=== PATIENT | female | born 1970 | race Caucasian/White ===

== ENCOUNTER → 2022-12-12 | Outpatient (CLI) | payer MEDICAID, SELFPAY ==
[2022-12-12 18:11] LABS: Absolute Lymphocyte Count 1.51 X10^3/uL (0.83-4.51); Absolute Neutrophil Count 2.5 X10^3/uL (2.0-7.7); Basophil# 0.02 X10^3/uL; Basophil% 0.4 % (0-1); Eosinophil# 0.19 X10^3/uL; Eosinophils% 4.2 % (0-5); Hematocrit 35.1 % (37-47); Hemoglobin 10.5 g/dL (12.0-15.0); Lymphocyte # 1.51 X10^3/ul (0.83-4.51); Lymphocyte % 33.1 % (19-41); Mean Corp Hgb Conc 29.9 g/dL (32-36); Mean Corpuscular Hgb 26.6 pg (27.0-32.0); Mean Corpuscular Volume 88.9 fL (81-99); Mean Platelet Vol. 10.1 fl (6.2-12.0); Monocyte# 0.36 X10^3/uL; Monocyte% 7.9 % (0-10); NRBC Flagged by Analyzer 0 % (0-5); Neutrophil # 2.47 X10^3/uL (2.7-7.7); Neutrophil % 54.2 % (47-70); Platelet Count 394 K/mm3 (150-450); RBC Distribution Width CV 16.2 % (11.6-14.6); RBC Distribution Width SD 53.1 fl (35.1-43.9); Red Blood Count 3.95 M/mm3 (4.2-5.4); White Blood Count 4.6 K/mm3 (4.4-11.0)
[2022-12-12 18:48] LABS: AST(SGOT) 16 U/L (15-37); Alanine Aminotransfer ALT/SGPT 16 U/L (13-56); Albumin, Serum 3.5 g/dL (3.2-5.0); Alkaline Phosphatase 38 U/L (45-117); Anion Gap 7 (5-15); BUN 14 mg/dL (7-18); BUN/Creat Ratio 22.4 RATIO (10-20); Calcium,Total 8.6 mg/dL (8.5-10.1); Chloride 107 mmol/L (98-107); Cholesterol 199 mg/dL (200); Creatinine, Serum 0.62 mg/dL (0.55-1.02); EST Glomerular Filtration Rate 107 mL/min (>60); Est Glom Filt Rate - Afr Amer 129 mL/min (>60); Globulin 3.5 g/dL (2.2-4.2); Glucose 76 mg/dL (74-106); High Density Lipoprotein 72 mg/dL; Potassium 3.3 mmol/L (3.5-5.1); Sodium Level 139 mmol/L (136-145); Thyroid Stim Hormone (TSH) 2.12 uIU/mL (0.358-3.74); Triglycerides 55 mg/dL; Very Low Density Lipoprotein 11 mg/dL (5-40)
[2022-12-12 19:23] LABS: Hepatitis C Antibody Non-Reactive (Nonreactive); Vitamin D,25 Hydroxy 15.4 ng/mL
== END | disposition home or self-care (01) ==
LOC: POLAB3 16:27
PROVIDERS: PCP Family Medicine Geriatric Medicine; Visit Provider Family Medicine Geriatric Medicine
DX: E78.5 Hyperlipidemia, unspecified (principal); R53.83 Other fatigue; Z13.89 Encounter for screening for other disorder; E55.9 Vitamin D deficiency, unspecified
CPT/HCPCS: 36415; 80053; 80061; 82306; 84443; 85025; 86803

== ENCOUNTER → 2023-01-10 | Outpatient (CLI) | payer MEDICAID, SELFPAY ==
[2023-01-10 18:06] LABS: Absolute Lymphocyte Count 1.19 X10^3/uL (0.83-4.51); Absolute Neutrophil Count 3.3 X10^3/uL (2.0-7.7); Basophil# 0.01 X10^3/uL; Basophil% 0.2 % (0-1); Eosinophil# 0.11 X10^3/uL; Eosinophils% 2.2 % (0-5); Hematocrit 35.1 % (37-47); Hemoglobin 10.4 g/dL (12.0-15.0); Lymphocyte # 1.19 X10^3/ul (0.83-4.51); Lymphocyte % 23.8 % (19-41); Mean Corp Hgb Conc 29.6 g/dL (32-36); Mean Corpuscular Hgb 27.4 pg (27.0-32.0); Mean Corpuscular Volume 92.4 fL (81-99); Mean Platelet Vol. 10.3 fl (6.2-12.0); Monocyte# 0.38 X10^3/uL; Monocyte% 7.6 % (0-10); NRBC Flagged by Analyzer 0 % (0-5); Neutrophil % 65.8 % (47-70); Platelet Count 370 K/mm3 (150-450); RBC Distribution Width CV 19.1 % (11.6-14.6); RBC Distribution Width SD 64.1 fl (35.1-43.9)
== END | disposition home or self-care (01) ==
LOC: POLAB3 13:55
PROVIDERS: PCP Family Medicine Geriatric Medicine; Visit Provider Family Medicine Geriatric Medicine
DX: D64.9 Anemia, unspecified (principal)
CPT/HCPCS: 36415; 85025

== ENCOUNTER 2023-02-06 07:54 | Day surgery (SDC) | payer MEDICAID, SELFPAY ==
[2023-02-06] VITALS (7 sets, daily range): BP systolic 108–117; BP diastolic 62–71; PULSE 60–69; RESP 16; TEMP 36.6–36.7; O2SAT 99–100; BMI 20.2
[2023-02-06] MEDS: Lactated Ringers 1,000 ML 15 ML IV (08:38)
[2023-02-06 08:39] LABS: Internal QC Validated? YES +Cl - CLEAR BKGD; Pregnancy, Urine Negative Negative
--- NOTE | 2023-02-06 08:46 | PCM.HP.BLA ---
History and Physical Date of Admission: 02/06/23 Intake Vital Signs ? 12/26/2313:40 Height 4 ft 11 in Weight: 100 lb BMI 20.2 BP 117/78 Blood Pressure Location Rt brachial Position Sitting Respiration 16 Intake Visit Reasons:?Anemia Chief Complaint: anemia Enrollment Eligibility Representative Required: No Is patient in pain?: Yes (abdomen) Allergies No Known Allergies Allergy (Verified 12/26/22 14:40) Medications alprazolam 1 mg tablet (Xanax) 1 mg PO QHS 02/27/17 [History Confirmed 12/26/22] famotidine 40 mg tablet 40 mg PO DAILY 12/26/22 [History Confirmed 12/26/22] polysaccharide iron complex 150 mg iron capsule (Ferrex) 150 mg PO DAILY 12/26/22 [History Confirmed 12/26/22] PFSH Medical History?(Updated 12/26/22 @ 14:[address] Olivier Hoover MD) Abdominal pain Acid reflux Anxiety Constipation Iron deficiency anemia Surgical History?(Updated 12/26/22 @ 14:39 by Shital Anderson) History of lithotripsy S/P hemorrhoidectomy S/P laparoscopic cholecystectomy Family History?(Updated 12/26/22 @ 14:39 by Shital Anderson) Mother Diabetes Social History?(Updated 12/26/22 @ 14:39 by Shital Anderson) Smoking Status:? Never smoker alcohol intake:? never HPI HPI HPI: Patient is a 52-year-old female here for lower abdominal pain and blood in her stool and anemia.? She reports that a few weeks ago she started having blood in her stool but it is very minimal amount.? She had a colonoscopy about 4 years ago which was normal.? She does not complain of any upper abdominal pain. ROS General General: Yes weight change; No appetite, fatigue, colon cancer, breast cancer or weakness HEENT HEENT: No difficulty swallowing, eye injury, eye surgery, swollen glands or hoarseness Endo Endocrine: No thyroid disease, diabetes mellitus, thyroid cancer, Hair loss, heat intolerance or cold intolerance Skin Skin: No rash or changing moles Breast Breast: No left breast lump, right breast lump, nipple discharge, breast pain, abnormal mammogram, abnormal US or breast enlargement Musc Musculoskeletal: No back problems, arthritis, rheumatoid arthritis, gout or joint pain Cardio Cardiovascular: No murmur, pacemaker, heart disease, atrial fibrillation, high blood pressure, heart attack, heart stent, palpitations, shortness of breat with exertion or chest pain Psych Psychiatric: Yes anxiety; No depression or hearing voices Resp Respiratory: No shortness of breath, No sleep apnea, No cough, No COPD, No asthma, No emphysema and No wheezing Gastro Gastrointestinal: Yes abdominal pain, No nausea or vomiting, No diarrhea, Yes constipation, No blood in stool, Yes acid reflux, No hemorrhoids, No ulcers, No gallbladder problem and Yes black,tarry stools Tyrell Hematologic: No blood thinners, No blood disorders, No bleeding, No anemia and No blood clots Neuro Neurologic: No system reviewed and no additional complaints, except as documented, No as per HPI, No abnormal gait, No abnormal hearing, No abnormal movements, No abnormal speech, No behavioral changes, No burning sensations, No confusion, No convulsions, No disequilibrium, No dizziness, No localized weakness, No frequent falls, No headache(s), No lack of coordination, No loss of vision, No memory loss, No numbness, No other visual disturbances, No radicular pain, No restless legs, No sensory deficit, No syncope, No tingling, No tremor(s), No weakness and No other Exam Const General: cooperative Orientation: alert and oriented x3 HENVT Head: normal to inspection Neck Neck: normal visual inspection and full ROM Chest Chest palpation & inspection: normal inspection of the chest Resp Effort & Inspection: normal respiratory effort Auscultation: clear to auscultation bilaterally Cardio Rate: regular rate Rhythm: regular rhythm GI Inspection: non-distended Palpation: soft and nontender Skin General: no rashes or lesions noted Neuro General: patient alert and patient oriented x3 Extrem General: full ROM Psych Appearance: grossly normal Mental Status: mental status grossly normal Assessment and Plan Assessment and Plan (1) Anemia: ?Qualifiers: ?Anemia type:?iron deficiency??Iron deficiency anemia type:?unspecified iron deficiency? Qualified Code(s):?D50.9 - Iron deficiency anemia, unspecified (2) Abdominal pain: ?Status:?Acute ?Qualifiers: ?Abdominal location:?lower abdomen, unspecified? Qualified Code(s):?R10.30 - Lower abdominal pain, unspecified (3) Blood in stool: ?Status:?Acute ? ? ? Orders: Orders Colonoscopy Today ? ? EGD Today ? ? Plan The patient is having lower abdominal pain and some blood in her stool and she also has iron deficiency anemia.? I recommended upper and lower endoscopy. I explained endoscopy in detail to the patient.? I explained the risks including but not limited to stroke or heart attack with anesthesia, perforation of the GI tract, bleeding, infection.? I explained that any of these could necessitate further emergency surgery.? The patient understands and all questions were answered sufficiently.? The patient wishes to proceed with procedure. Olivier Hoover MD Pager: [facility] [address] [place] [address], [address] [place] [address] Office: I have examined the patient and the H&P has been reviewed. There are no clinical changes since date of exam.
--- NOTE | 2023-02-06 09:00 | COLBX_PTH ---
PATIENT: YULISSA ALAN LOC: EN U#:[id number] AGE/SX: 52/F ROOM: RE02/06/[address]: Dr. Olivier Hoover MD : 1970 BED: DIS: 02/06/2023 SPEC #: [id number] RECD: 02/06/23 14:39 STATUS: JANAY RERacquel #: [id number] RACHAEL: 02/06/23 09:[address]: Olivier Hoover DEPT: SURGICAL PATHOLOGY RECD BY: Jayson Chand ENTERED: 02/07/23 10:11 SP TYPE: COLON BX OTHR DR: Dr. Garcia Barfield MD Tissues: Rectum, NOS Procedures: Surgery Specimen Level IV HEADER OPERATION: Colonoscopy, biopsy, EGD ([facility] [place]) PRE-OP DIAGNOSIS: Iron deficiency anemia, blood in stool, abdominal pain TISSUE SUBMITTED: Rectum biopsy MICROSCOPIC DIAGNOSIS Rectum, biopsy: Melanosis coli. AM:chyna 02/08/2023 MICROSCOPIC DESCRIPTION Slides are reviewed. GROSS DESCRIPTION Received in fixative is one container labeled with the patient's name and designated rectum biopsy. The specimen consists of two irregular fragments of light anderson soft tissue that in aggregate measure 0.6 x 0.3 x 0.1 cm. The specimen is totally submitted in one cassette. / SJ:chyna 02/07/2023 TC:5 CPT: 57734
[2023-02-06 09:21] LABS: Potassium 2.5 mmol/L (3.5-5.1)
--- NOTE | 2023-02-06 09:40 | OP.EGD_ITS ---
Patient Name: Valencia Padilla Procedure Date: 02/06/2023 9:01 AM Date of : 1970 Age: 52 Procedure: Upper GI endoscopy Indications: Iron deficiency anemia Providers: Olivier Hoover MD Medicines: Monitored Anesthesia Care Patient Profile: This is a 52 year old female. Refer to note in patient chart for documentation of history and physical. Complications: No immediate complications. Procedure: Pre-Anesthesia Assessment: - Prior to the procedure, a History and Physical was performed, and patient medications and allergies were reviewed. The patient's tolerance of previous anesthesia was also reviewed. The risks and benefits of the procedure and the sedation options and risks were discussed with the patient. All questions were answered, and informed consent was obtained. Prior Anticoagulants: The patient has taken no previous anticoagulant or antiplatelet agents. After reviewing the risks and benefits, the patient was deemed in satisfactory condition to undergo the procedure. After obtaining informed consent, the endoscope was passed under direct vision. Throughout the procedure, the patient's blood pressure, pulse, and oxygen saturations were monitored continuously. The Endoscope was introduced through the mouth, and advanced to the third part of duodenum. The upper GI endoscopy was accomplished without difficulty. The patient tolerated the procedure well. Scope In: 9:12:52 AM Scope Out: 9:14:26 AM Total Procedure Duration Time 0 hours 1 minute 34 seconds Findings: The esophagus was normal. The stomach was normal. The examined duodenum was normal. Impression: - Normal esophagus. - Normal stomach. - Normal examined duodenum. - No specimens collected. Recommendation: - Discharge patient to home. - Resume previous diet. - Continue present medications. Procedure Code(s): --- Professional --- 41957, Esophagogastroduodenoscopy, flexible, transoral; diagnostic, including collection of specimen(s) by brushing or washing, when performed (separate procedure) Diagnosis Code(s): --- Professional --- D50.9, Iron deficiency anemia, unspecified CPT copyright 2017 [employer]. All rights reserved. The codes documented in this report are preliminary and upon auditing coder review may be revised to meet current compliance requirements. Olivier Hoover MD 02/06/2023 9:40:26 AM This report has been signed electronically. Number of Addenda: 0 Note Initiated On: 02/06/2023 9:01 AM
--- NOTE | 2023-02-06 09:41 | OP.CCLET_ITS ---
02/06/2023 Garcia Barfield MD [address] [place] [address] Re : Upper GI endoscopy procedure for Valencia Padilla Dear Dr. Barfield This procedure was performed on Monday, February 06, 2023. My impressions and recommendations are as follows: Impressions : - Normal esophagus. - Normal stomach. - Normal examined duodenum. - No specimens collected. Recommendations : - Discharge patient to home. - Resume previous diet. - Continue present medications. My findings are described in the full procedure note, which is enclosed. If I can be of further assistance, please feel free to contact me at Doctor phone number(s): , Work: . Sincerely, Olivier Hoover MD 02/06/2023 9:40:26 AM This report has been signed electronically.
--- NOTE | 2023-02-06 09:44 | OP.COLON_ITS ---
Patient Name: Valencia Padilla Procedure Date: 02/06/2023 9:15 AM Date of : 1970 Age: 52 Procedure: Colonoscopy Indications: Iron deficiency anemia Providers: Olivier Hoover MD Medicines: Monitored Anesthesia Care Patient Profile: This is a 52 year old female. Refer to note in patient chart for documentation of history and physical. Last Colonoscopy: none. The patient's first colonoscopy is today. Complications: No immediate complications. Procedure: Pre-Anesthesia Assessment: - Prior to the procedure, a History and Physical was performed, and patient medications and allergies were reviewed. The patient's tolerance of previous anesthesia was also reviewed. The risks and benefits of the procedure and the sedation options and risks were discussed with the patient. All questions were answered, and informed consent was obtained. Prior Anticoagulants: The patient has taken no previous anticoagulant or antiplatelet agents. After reviewing the risks and benefits, the patient was deemed in satisfactory condition to undergo the procedure. After I obtained informed consent, the scope was passed under direct vision. Throughout the procedure, the patient's blood pressure, pulse, and oxygen saturations were monitored continuously. The colonoscope was introduced through the anus and advanced to the cecum, identified by appendiceal orifice and ileocecal valve. The colonoscopy was performed without difficulty. The patient tolerated the procedure well. The quality of the bowel preparation was not adequate to identify polyps 6 mm and larger in size. Scope In: 9:17:23 AM Scope Withdrawal Time 0 hours 5 minutes 45 seconds Scope Out: 9:31:34 AM Total Procedure Duration Time 0 hours 14 minutes 11 seconds Findings: An area of moderately congested mucosa was found in the rectum. Biopsies were taken with a cold forceps for histology. The exam was otherwise without abnormality on direct and retroflexion views. Impression: - Preparation of the colon was inadequate. - Congested mucosa in the rectum. Biopsied. - The examination was otherwise normal on direct and retroflexion views. Recommendation: - Discharge patient to home. - Resume previous diet. - Continue present medications. - Await pathology results. - Repeat colonoscopy in 10 years for screening purposes. Procedure Code(s): --- Professional --- 07403, Colonoscopy, flexible; with biopsy, single or multiple Diagnosis Code(s): --- Professional --- K62.89, Other specified diseases of anus and rectum D50.9, Iron deficiency anemia, unspecified CPT copyright 2017 [employer]. All rights reserved. The codes documented in this report are preliminary and upon machine assistant review may be revised to meet current compliance requirements. Olivier Hoover MD 02/06/2023 9:44:27 AM This report has been signed electronically. Number of Addenda: 0 Note Initiated On: 02/06/2023 9:15 AM
--- NOTE | 2023-02-06 09:45 | OP.CCLET_ITS ---
02/06/2023 Garcia Barfield MD [address] [place] [address] Re : Colonoscopy procedure for Valencia Padilla Dear Dr. Barfield This procedure was performed on Monday, February 06, 2023. My impressions and recommendations are as follows: Impressions : - Preparation of the colon was inadequate. - Congested mucosa in the rectum. Biopsied. - The examination was otherwise normal on direct and retroflexion views. Recommendations : - Discharge patient to home. - Resume previous diet. - Continue present medications. - Await pathology results. - Repeat colonoscopy in 10 years for screening purposes. My findings are described in the full procedure note, which is enclosed. If I can be of further assistance, please feel free to contact me at Doctor phone number(s): , Work: . Sincerely, Olivier Hoover MD 02/06/2023 9:44:27 AM This report has been signed electronically.
[2023-02-06 10:00] LABS: Magnesium 1.7 mg/dL (1.6-2.6); Potassium 2.3 mmol/L (3.5-5.1)
--- NOTE | 2023-02-06 10:00 | SUR.PHASEII ---
critical potassium of 2.3 reported to this nurse at 0959 from organic lab worker. reported to anesthesia.
[2023-02-06] MEDS: Potassium Chloride Oral Tablet 20 MEQ 60 MEQ PO (10:23)
--- NOTE | 2023-02-06 11:24 | SUR.PHASEII ---
This nurse called and left a voicemail with Dr. Barfield's RN regarding critical low potassium. Patient educated to call and make an appointment for follow up regarding K+. Patient agrees. Phone number provided. All questions answered at this time.
== END 2023-02-06 11:25 | disposition home or self-care (01) ==
LOC: EN 07:56 → AC 07:57
PROVIDERS: Anesthesiology; PCP Family Medicine Geriatric Medicine; Referring Provider Surgery; Visit Provider Surgery
PROC: 0DJD8ZZ Inspection of Lower Intestinal Tract, Via Natural or Artificial Opening Endoscopic (ICD-10-PCS; CPT 45378; principal; 2023-02-06 08:55)
DX: K63.89 Other specified diseases of intestine (principal); D50.9 Iron deficiency anemia, unspecified; K92.1 Melena; K21.9 Gastro-esophageal reflux disease without esophagitis; F41.9 Anxiety disorder, unspecified; Z90.49 Acquired absence of other specified parts of digestive tract; Z79.899 Other long term (current) drug therapy
CPT/HCPCS: 45380; 43235; 36415; 80048; 81025; 83735; 84132; 85025; 88305; J7120; J2405

== ENCOUNTER → 2023-02-06 | Outpatient (CLI) | payer MEDICAID, SELFPAY ==
[2023-02-06 17:44] LABS: Absolute Lymphocyte Count 1.16 X10^3/uL (0.83-4.51); Absolute Neutrophil Count 2.3 X10^3/uL (2.0-7.7); Basophil# 0.01 X10^3/uL; Basophil% 0.3 % (0-1); Eosinophil# 0.15 X10^3/uL; Eosinophils% 3.8 % (0-5); Hematocrit 34.4 % (37-47); Hemoglobin 10.9 g/dL (12.0-15.0); Lymphocyte # 1.16 X10^3/ul (0.83-4.51); Lymphocyte % 29.3 % (19-41); Mean Corp Hgb Conc 31.7 g/dL (32-36); Mean Corpuscular Hgb 29.1 pg (27.0-32.0); Mean Corpuscular Volume 91.7 fL (81-99); Mean Platelet Vol. 10.4 fl (6.2-12.0); Monocyte# 0.38 X10^3/uL; Monocyte% 9.6 % (0-10); NRBC Flagged by Analyzer 0 % (0-5); Neutrophil # 2.25 X10^3/uL (2.7-7.7); Neutrophil % 56.7 % (47-70); Platelet Count 302 K/mm3 (150-450); RBC Distribution Width CV 18.3 % (11.6-14.6); RBC Distribution Width SD 61.2 fl (35.1-43.9); Red Blood Count 3.75 M/mm3 (4.2-5.4)
[2023-02-06 17:55] LABS: Anion Gap 4 (5-15); BUN 8 mg/dL (7-18); BUN/Creat Ratio 15.2 RATIO (10-20); Calcium,Total 8.2 mg/dL (8.5-10.1); Chloride 109 mmol/L (98-107); Creatinine, Serum 0.53 mg/dL (0.55-1.02); EST Glomerular Filtration Rate 130 mL/min (>60); Est Glom Filt Rate - Afr Amer 157 mL/min (>60); Glucose 87 mg/dL (74-106); Magnesium 2.8 mg/dL (1.6-2.6); Potassium 2.7 mmol/L (3.5-5.1); Sodium Level 142 mmol/L (136-145)
== END | disposition home or self-care (01) ==
LOC: POLAB3 16:11
PROVIDERS: PCP Family Medicine Geriatric Medicine; Visit Provider Family Medicine Geriatric Medicine
DX: D64.9 Anemia, unspecified (principal); E83.42 Hypomagnesemia; E87.6 Hypokalemia; K90.9 Intestinal malabsorption, unspecified; R53.83 Other fatigue
CPT/HCPCS: 85025; 36415; 83735; 80048

== ENCOUNTER → 2023-02-21 | Outpatient (CLI) | payer MEDICAID, SELFPAY ==
[2023-02-21 17:13] LABS: Anion Gap 10 (5-15); BUN 14 mg/dL (7-18); BUN/Creat Ratio 22.8 RATIO (10-20); Calcium,Total 9.1 mg/dL (8.5-10.1); Chloride 108 mmol/L (98-107); Creatinine, Serum 0.61 mg/dL (0.55-1.02); EST Glomerular Filtration Rate 109 mL/min (>60); Est Glom Filt Rate - Afr Amer 132 mL/min (>60); Glucose 89 mg/dL (74-106); Magnesium 1.8 mg/dL (1.6-2.6); Potassium 3.6 mmol/L (3.5-5.1); Sodium Level 139 mmol/L (136-145)
== END | disposition home or self-care (01) ==
PROVIDERS: PCP Family Medicine Geriatric Medicine; Visit Provider Family Medicine Geriatric Medicine
DX: E83.42 Hypomagnesemia (principal); E87.6 Hypokalemia
CPT/HCPCS: 36415; 80048; 82607; 82728; 83540; 83550; 83735; 85025; 85045

== ENCOUNTER → 2023-06-06 | Outpatient (CLI) | payer MEDICAID, SELFPAY | END | disposition home or self-care (01) | LOC: LABSPEC 17:05 | PROVIDERS: PCP Family Medicine Geriatric Medicine; Visit Provider Family Medicine Geriatric Medicine | DX: N20.0 Calculus of kidney (principal); N39.0 Urinary tract infection, site not specified | CPT/HCPCS: 82360; 87086; 87088 ==

== ENCOUNTER → 2023-06-19 | Outpatient (CLI) | payer MEDICAID, SELFPAY ==
[2023-06-19 15:10] LABS: Absolute Lymphocyte Count 1.16 X10^3/uL (0.83-4.51); Basophil# 0.02 X10^3/uL; Basophil% 0.4 % (0-1); Eosinophils% 2.2 % (0-5); Hematocrit 36.7 % (37-47); Hemoglobin 11.8 g/dL (12.0-15.0); Lymphocyte # 1.16 X10^3/ul (0.83-4.51); Lymphocyte % 25.1 % (19-41); Mean Corp Hgb Conc 32.2 g/dL (32-36); Mean Corpuscular Hgb 31.1 pg (27.0-32.0); Mean Corpuscular Volume 96.8 fL (81-99); Mean Platelet Vol. 10.5 fl (6.2-12.0); Monocyte# 0.34 X10^3/uL; Monocyte% 7.4 % (0-10); NRBC Flagged by Analyzer 0 % (0-5); Neutrophil # 2.99 X10^3/uL (2.7-7.7); Neutrophil % 64.7 % (47-70); Platelet Count 303 K/mm3 (150-450); RBC Distribution Width CV 13.9 % (11.6-14.6); RBC Distribution Width SD 49.5 fl (35.1-43.9); Red Blood Count 3.79 M/mm3 (4.2-5.4); White Blood Count 4.6 K/mm3 (4.4-11.0)
[2023-06-19 15:45] LABS: ALB/GLOB Ratio 0.9 RATIO (0.9-2.4); AST(SGOT) 10 U/L (15-37); Alanine Aminotransfer ALT/SGPT 16 U/L (13-56); Albumin, Serum 3.3 g/dL (3.2-5.0); Alkaline Phosphatase 39 U/L (45-117); Anion Gap 4 (5-15); BUN 9 mg/dL (7-18); BUN/Creat Ratio 14.1 RATIO (10-20); Calcium,Total 8.3 mg/dL (8.5-10.1); Chloride 106 mmol/L (98-107); Cholesterol 189 mg/dL (200); Creatinine, Serum 0.64 mg/dL (0.55-1.02); EST Glomerular Filtration Rate 104 mL/min (>60); Est Glom Filt Rate - Afr Amer 126 mL/min (>60); Globulin 3.5 g/dL (2.2-4.2); Glucose 81 mg/dL (74-106); High Density Lipoprotein 73 mg/dL; Potassium 3.4 mmol/L (3.5-5.1); Protein, Total 6.8 g/dL (6.4-8.2); Sodium Level 138 mmol/L (136-145); Thyroid Stim Hormone (TSH) 2.04 uIU/mL (0.358-3.74); Triglycerides 42 mg/dL; Very Low Density Lipoprotein 8 mg/dL (5-40)
== END | disposition home or self-care (01) ==
LOC: POLAB3 13:33
PROVIDERS: PCP Family Medicine Geriatric Medicine; Visit Provider Family Medicine Geriatric Medicine
DX: R53.83 Other fatigue (principal)
CPT/HCPCS: 36415; 80053; 80061; 84443; 85025

== ENCOUNTER → 2023-06-29 | Outpatient (CLI) | payer MEDICAID, SELFPAY ==
[2023-06-29 17:08] LABS: Anion Gap 2 (5-15); BUN 11 mg/dL (7-18); BUN/Creat Ratio 17.9 RATIO (10-20); Calcium,Total 8.3 mg/dL (8.5-10.1); Chloride 105 mmol/L (98-107); Creatinine, Serum 0.61 mg/dL (0.55-1.02); EST Glomerular Filtration Rate 109 mL/min (>60); Est Glom Filt Rate - Afr Amer 132 mL/min (>60); Glucose 80 mg/dL (74-106); Potassium 3.9 mmol/L (3.5-5.1); Sodium Level 135 mmol/L (136-145)
== END | disposition home or self-care (01) ==
LOC: LAB 16:16
PROVIDERS: PCP Family Medicine Geriatric Medicine; Visit Provider Family Medicine Geriatric Medicine
DX: E87.6 Hypokalemia (principal)
CPT/HCPCS: 36415; 80048

== ENCOUNTER → 2023-07-24 | Outpatient (CLI) | payer MEDICAID, SELFPAY ==
--- NOTE | 2023-07-24 14:48 | CT_ITS ---
STUDY: CT ABDOMEN AND PELVIS WITHOUT CONTRAST REASON FOR EXAM: Female, 52 years old. LEFT RENAL STONE RADIATION DOSAGE (If Supplied By Facility): CTDIvol = ( 6.04 ) mGy, DLP = ( 303.71 ) mGycm TECHNIQUE: Transaxial images were obtained from the dome of the diaphragm to the symphysis pubis without oral contrast, and without intravenous contrast. Sagittal and coronal images were reconstructed. Individualized dose optimization techniques were used for this CT. COMPARISON: None. FINDINGS: The visualized lung bases are unremarkable. The visualized portions of the heart are within normal limits. There is a 1.8 cm x 1.5 cm cyst in the medial aspect of the right lobe of the liver. There are surgical clips in the gallbladder fossa consistent with a prior cholecystectomy. Normal spleen. Normal pancreas. Normal bilateral adrenal glands. Normal right kidney. Normal left kidney. There is a small hiatal hernia. Normal small intestine. Normal colon. The appendix is visualized and appears normal. There is scattered atherosclerotic calcification of the abdominal aorta, without a demonstrated aneurysm. Normal inferior vena cava. Normal retroperitoneum. Normal urinary bladder. Normal abdominal wall. Normal osseous structures. CT/Abdomen/Pelvis without Cont IMPRESSION: Cyst in the right lobe of the liver. Status post cholecystectomy. No evidence of obstructive uropathy is seen at this time. Electronically Signed: Paramjit Watt MD at 15:21 EDT ,
== END | disposition home or self-care (01) ==
LOC: CT 14:46
PROVIDERS: PCP Family Medicine Geriatric Medicine; Referring Provider Family Medicine Geriatric Medicine; Visit Provider Family Medicine Geriatric Medicine
DX: N20.0 Calculus of kidney (principal)
CPT/HCPCS: 74176

== ENCOUNTER → 2023-11-12 | Outpatient (CLI) | payer MEDICAID, SELFPAY ==
--- NOTE | 2023-11-12 16:03 | RAD_ITS ---
STUDY: X-RAY - ABDOMEN/PELVIS REASON FOR EXAM: Female, 52 years old. FECAL IMPACTION OF THE COLON TECHNIQUE: 3 views COMPARISON: None. FINDINGS: Normal visualized lung bases. There is an unremarkable bowel gas pattern. No significant colonic fecal retention. There is no demonstrated free abdominal air. Surgical clips in the right upper quadrant. Normal soft tissue structures. Normal visualized osseous structures. RAD/Abd Inc Decub and/or Erect IMPRESSION: Normal x-ray examination of the abdomen and pelvis. Electronically Signed: Lex Sung DO at 16:18 EST Reading Location ID and State: [facility] / [place] Tel [phone], Service support ,
[2023-11-12 17:52] LABS: Absolute Lymphocyte Count 0.98 X10^3/uL (0.83-4.51); Absolute Neutrophil Count 1.7 X10^3/uL (2.0-7.7); Basophil# 0.01 X10^3/uL; Basophil% 0.3 % (0-1); Eosinophil# 0.13 X10^3/uL; Hematocrit 39.2 % (37-47); Hemoglobin 12.5 g/dL (12.0-15.0); Lymphocyte # 0.98 X10^3/ul (0.83-4.51); Lymphocyte % 30.5 % (19-41); Mean Corp Hgb Conc 31.9 g/dL (32-36); Mean Corpuscular Hgb 29.8 pg (27.0-32.0); Mean Corpuscular Volume 93.6 fL (81-99); Mean Platelet Vol. 10.6 fl (6.2-12.0); Monocyte% 12.5 % (0-10); NRBC Flagged by Analyzer 0 % (0-5); Neutrophil # 1.68 X10^3/uL (2.7-7.7); Neutrophil % 52.4 % (47-70); Platelet Count 297 K/mm3 (150-450); RBC Distribution Width CV 14.1 % (11.6-14.6); RBC Distribution Width SD 48.1 fl (35.1-43.9); Red Blood Count 4.19 M/mm3 (4.2-5.4); White Blood Count 3.2 K/mm3 (4.4-11.0)
[2023-11-12 18:09] LABS: AST(SGOT) 23 U/L (15-37); Alanine Aminotransfer ALT/SGPT 26 U/L (13-56); Albumin, Serum 3.8 g/dL (3.2-5.0); Alkaline Phosphatase 55 U/L (45-117); Anion Gap 6 (5-15); BUN 12 mg/dL (7-18); BUN/Creat Ratio 18.1 RATIO (10-20); Calcium,Total 8.8 mg/dL (8.5-10.1); Chloride 109 mmol/L (98-107); Creatinine, Serum 0.66 mg/dL (0.55-1.02); EST Glomerular Filtration Rate 99 mL/min (>60); Est Glom Filt Rate - Afr Amer 120 mL/min (>60); Globulin 3.8 g/dL (2.2-4.2); Glucose 98 mg/dL (74-106); Potassium 2.8 mmol/L (3.5-5.1); Protein, Total 7.6 g/dL (6.4-8.2); Sodium Level 141 mmol/L (136-145)
== END | disposition home or self-care (01) ==
PROVIDERS: PCP Family Medicine Geriatric Medicine; Visit Provider Family Medicine Geriatric Medicine
DX: K56.41 Fecal impaction (principal); N39.0 Urinary tract infection, site not specified
CPT/HCPCS: 36415; 74019; 80053; 85025; 87086

== ENCOUNTER → 2023-11-21 | Outpatient (CLI) | payer MEDICAID, SELFPAY ==
[2023-11-21 14:57] LABS: Anion Gap 2 (5-15); BUN 9 mg/dL (7-18); BUN/Creat Ratio 13.6 RATIO (10-20); Calcium,Total 8.8 mg/dL (8.5-10.1); Chloride 106 mmol/L (98-107); Creatinine, Serum 0.66 mg/dL (0.55-1.02); EST Glomerular Filtration Rate 100 mL/min (>60); Est Glom Filt Rate - Afr Amer 121 mL/min (>60); Glucose 84 mg/dL (74-106); Potassium 3.9 mmol/L (3.5-5.1); Sodium Level 138 mmol/L (136-145)
--- OUTSIDE RECORDS SUMMARY | 2023-11-21 17:48 | XMS RPT_ITS | CCD ---
Author Name Unknown Address [address] [place] [address] Organization [facility] Care Team Providers Care Canal Tender Name Role Phone TAE MARTINS Unavailable Unavailable TAE MARTINS Unavailable Unavailable TAE MARTINS Unavailable Unavailable CALEB GUILLAUME DO Unavailable Unavailable PROVIDER, UNKNOWN Unavailable Unavailable Jair Blanco Unavailable Unavailable Bella, Jair M Unavailable Unavailable Bella Jair M Unavailable Unavailable Bella, Jair M Unavailable Unavailable Ashlie Guillaume Unavailable Unavailable [place] Blancoil Uriah Unavailable Unavailable Ashlie Guillaume Unavailable Unavailable ASHLIE CROWLEY DO Primary Care Physician Medications Current Medications Medication Drug Class(es) Dates Sig (Normalized) Sig (Original) docusate sodium 100 mg oral capsule (2 sources) Start: 02-07-2022 End: 02-02-2023 DOK 100 mg oral capsule Dose : 100 mg = 1 cap(s), Oral, BID, # 180 cap(s), 3 Refill(s), Pharmacy: [id number], Constipation, 149, cm, 02/07/22 13:56:00 EDT, Height, kg, 02/07/22 13:56:00 EDT, Dosing Weight Start Date: 02/07/22 Stop Date: 02/02/23 Status: Ordered Completed/Discontinued Medications Medication Drug Class(es) Dates Sig (Normalized) Sig (Original) ALPRAZolam 1 mg oral tablet (2 sources) Benzodiazepine Start: 05-16-2022 ALPRAZolam 1 mg oral tablet Dose : 1 mg = 1 tab(s), Oral, qHS, PRN as needed for anxiety, 0 Refill(s), 43 Start Date: 05/16/22 Status: Ordered simethicone 80 mg chewable tablet (2 sources) Start: 02-07-2022 End: 04-08-2022 simethicone 80 mg oral tablet, chewable Dose : 80 mg = 1 tab(s), Chewed, QID, # 120 tab(s), 1 Refill(s), Pharmacy: [id number], IBS (irritable bowel syndrome) Acid reflux, 149, cm, 02/07/22 13:56:00 EDT, Height, kg, 02/07/22 13:56:00 EDT, Dosing Weight Start Date: 02/07/22 Stop Date: 04/08/22 Status: Ordered Problems Problem Classification Problem Date Documented Da te Episodic/Chronic Abdominal pain (2 sources) Abdominal pain 01-03-2016 Episodic Anxiety disorders (2 sources) Anxiety 01-03-2016 Chronic Calculus of urinary tract (2 sources) History of calculus of kidney 01-03-2016 Episodic Deficiency and other anemia (2 sources) Anemia 01-03-2016 Episodic Diverticulosis and diverticulitis (2 sources) Diverticular disease 01-13-2016 Chronic Hemorrhoids (2 sources) Bleeding external hemorrhoids 10-24-2019 Episodic Mood disorders (2 sources) Depressive disorder 01-03-2016 Chronic Nutritional deficiencies (1 source) Iron deficiency Onset: 10-30-2017 Chronic Other ear and sense organ disorders (2 sources) Impacted cerumen 02-03-2021 Episodic Other gastrointestinal disorders (2 sources) Constipation 01-03-2016 Episodic Other screening for suspected conditions (not mental disorders or infectious disease) (2 sources) Viral screening status 05-16-2022 Episodic Residual codes; unclassified (2 sources) Requires a tetanus booster 02-07-2022 Episodic Residual codes; unclassified (2 sources) Requires varicella vaccination 02-07-2022 Episodic Unclassified (1 source) Unknown / UNK(Unknown) Onset: 10-30-2017 Unclassified (2 sources) Eye glasses, device (physical object) 01-03-2016 Unclassified (2 sources) H/O: high risk medication 07-25-2019 Unclassified (10 sources) Patient encounter status 02-03-2021 Unclassified (2 sources) Procedure refused 05-16-2022 Results Test Name Value Interpretation Reference Range Facil ity Encounters Encounter Date Encounter Type Care Provider Facility Start: 05-31-2022 End: 05-31-2022 Patient encounter procedure ASHLIE CROWLEY DO [facility] Start: 05-28-2018 Patient encounter Jair Espinoza lity:[facility] Start: 05-14-2018 Patient encounter Jair Espinoza lity:[facility] Start: 03-02-2018 Patient encounter Jair Espinoza lity:[facility] Start: 02-28-2018 End: 02-28-2018 Ambulatory TAE Urias [facility] Start: 01-15-2018 Patient encounter Jair Espinoza lity:[facility] Start: 10-30-2017 Patient encounter Jair vargas:[facility] Procedures Date Procedure Procedure Detail Performing Clinician Start: 01-06-2016 Cystoscopy ASHLIE MARIA DO Immunizations Immunization Date Immunization Notes Care Provider Fa [facility] 02-07-2022 tetanus toxoid, redu anibal diphtheria toxoid, and acellular pertussis vaccine, adsorbed; Translations: [Boostrix (Tdap)] ASHLIE CROWLEY DO [facility] 02-07-2022 zoster vaccine recombinant; Translations: [Shingrix] ASHLIE CROWLEY DO [facility] 09-09-2021 SARS-CoV-2 (COVID-19 ) mRNA-1273 vaccine ASHLIE CROWLEY DO [facility] 08-17-2021 influenza, injectabl e, quadrivalent, contains preservative; Translations: [Fluarix PF Quadrivalent ] ASHLIE CROWLEY DO [facility] 01-06-2021 SARS-CoV-2 (COVID-19 ) Ad26 vaccine, recombinant ASHLIE CROWLEY DO [facility] Payers Date Payer Category Payer Unknown [id number] Social History Date Type Detail Facility Start: 10-24-2019 Tobacco smoking status Never s moked tobacco (finding) [facility] Evaluation + Plan note Note Date & Type Note Facility Evaluation + Plan note Future Appointments Appointment Date:11/15/2022 02:00:00 PM Scheduled Provider:ASHLIE CROWLEY DO Location:[facility] Appointment Type:PC OV Follow Up [facility] Hospital course Narrative Note Date & Type Note Facility Hospital course Narrative No data available for this section [facility] Hospital Discharge instructions Note Date & Type Note Facility Hospital Discharge instructions No data available for this section [facility] Progress note Note Date & Type Note Facility Progress note No data available for this section [facility] Summary Purpose Family History No Family History Records FoundNo Family History Records FoundNo Family History Records Found Advance Directives No Advanced Directives Records FoundNo Advanced Directives Records FoundNo Advanced Directives Records Found Additional Source Comments INFORMATION SOURCE (unrecogn ized section and content) DATE CREATED AUTHOR AUTHOR'S ORGANIZ ATION 07/13/2018 [facility] mavis Hodgson DATE CREATED AUTHOR AUTHOR'S ORGANIZ ATION 06/06/2022 [facility] ([place]) Care Team (unrecognized sect ion and content) Care Team Personnel Name: ASHLIE CROWLEY DO Position: P4 Physician - Primary Care Member Role: Primary Care Physician Address: Address: [address] [place] [address] Care Team Related Persons Name: GARCIA BRYANT Care Team Personnel Name: ASHLIE CROWLEY DO Position: P4 Physician - Primary Care Member Role: Primary Care Physician Address: Address: [address] [place] [address] Care Team Related Persons Name: GARCIA BRYANT FOR RECORDS PERTAINING TO PATIENTS WHO ARE OR HAVE BEEN ENROLLED IN A CHEMICAL DEPENDENCY/SUBSTANCEABUSE PROGRAM, SOME INFORMATION MAY BE OMITTED. This clinical summary was aggregated from multiple sources. Caution should be exercised in using it in the provision of clinical care. This summary normalizes information from multiple sources, and as a consequence, information in this document may materially change the coding, format and clinical context of patient data. In addition, data may be omitted in some cases. CLINICAL DECISIONS SHOULD BE BASED ON THE PRIMARY CLINICAL RECORDS. [facility]. provides no warranty or guarantee of the accuracy or completeness of information in this document.
== END | disposition home or self-care (01) ==
LOC: LAB 13:52
PROVIDERS: PCP Family Medicine Geriatric Medicine; Visit Provider Family Medicine Geriatric Medicine
DX: E78.5 Hyperlipidemia, unspecified (principal)
CPT/HCPCS: 36415; 80048

== ENCOUNTER → 2023-12-06 | Outpatient (CLI) | payer MEDICAID, SELFPAY ==
[2023-12-06 17:18] LABS: Anion Gap 7 (5-15); BUN 10 mg/dL (7-18); BUN/Creat Ratio 14.3 RATIO (10-20); Chloride 104 mmol/L (98-107); EST Glomerular Filtration Rate 94 mL/min (>60); Est Glom Filt Rate - Afr Amer 114 mL/min (>60); Glucose 79 mg/dL (74-106); Potassium 3.3 mmol/L (3.5-5.1); Sodium Level 140 mmol/L (136-145)
== END | disposition home or self-care (01) ==
LOC: LAB 15:47
PROVIDERS: PCP Family Medicine Geriatric Medicine; Referring Provider Family Medicine Geriatric Medicine; Visit Provider Family Medicine Geriatric Medicine
DX: E87.6 Hypokalemia (principal)
CPT/HCPCS: 36415; 80048

== ENCOUNTER → 2023-12-14 | Outpatient (CLI) | payer MEDICAID, SELFPAY ==
[2023-12-14 16:55] LABS: Anion Gap 5 (5-15); BUN 9 mg/dL (7-18); BUN/Creat Ratio 12.3 RATIO (10-20); Calcium,Total 8.9 mg/dL (8.5-10.1); Chloride 107 mmol/L (98-107); Creatinine, Serum 0.73 mg/dL (0.55-1.02); EST Glomerular Filtration Rate 88 mL/min (>60); Est Glom Filt Rate - Afr Amer 107 mL/min (>60); Glucose 89 mg/dL (74-106); Potassium 3.7 mmol/L (3.5-5.1); Sodium Level 139 mmol/L (136-145)
== END | disposition home or self-care (01) ==
LOC: LAB 15:28
PROVIDERS: PCP Family Medicine Geriatric Medicine; Referring Provider Family Medicine Geriatric Medicine; Visit Provider Family Medicine Geriatric Medicine
DX: E78.5 Hyperlipidemia, unspecified (principal)
CPT/HCPCS: 36415; 80048

== ENCOUNTER → 2023-12-25 | Outpatient (CLI) | payer MEDICAID, SELFPAY ==
[2023-12-25 14:54] LABS: Absolute Lymphocyte Count 1.52 X10^3/uL (0.83-4.51); Absolute Neutrophil Count 2.6 X10^3/uL (2.0-7.7); Basophil# 0.01 X10^3/uL; Basophil% 0.2 % (0-1); Eosinophil# 0.16 X10^3/uL; Eosinophils% 3.3 % (0-5); Hematocrit 34.9 % (37-47); Hemoglobin 11.1 g/dL (12.0-15.0); Lymphocyte # 1.52 X10^3/ul (0.83-4.51); Lymphocyte % 31.7 % (19-41); Mean Corp Hgb Conc 31.8 g/dL (32-36); Mean Corpuscular Hgb 29.1 pg (27.0-32.0); Mean Corpuscular Volume 91.6 fL (81-99); Mean Platelet Vol. 10.6 fl (6.2-12.0); Monocyte# 0.45 X10^3/uL; Monocyte% 9.4 % (0-10); NRBC Flagged by Analyzer 0 % (0-5); Neutrophil # 2.64 X10^3/uL (2.7-7.7); Neutrophil % 55.2 % (47-70); Platelet Count 276 K/mm3 (150-450); RBC Distribution Width CV 13.5 % (11.6-14.6); RBC Distribution Width SD 45.6 fl (35.1-43.9); Red Blood Count 3.81 M/mm3 (4.2-5.4); White Blood Count 4.8 K/mm3 (4.4-11.0)
[2023-12-25 15:19] LABS: ALB/GLOB Ratio 1.1 RATIO (0.9-2.4); AST(SGOT) 17 U/L (15-37); Alanine Aminotransfer ALT/SGPT 15 U/L (13-56); Albumin, Serum 3.5 g/dL (3.2-5.0); Alkaline Phosphatase 44 U/L (45-117); Anion Gap 8 (5-15); BUN 14 mg/dL (7-18); BUN/Creat Ratio 17.9 RATIO (10-20); Calcium,Total 8.7 mg/dL (8.5-10.1); Chloride 105 mmol/L (98-107); Cholesterol 193 mg/dL (200); Creatinine, Serum 0.78 mg/dL (0.55-1.02); EST Glomerular Filtration Rate 82 mL/min (>60); Est Glom Filt Rate - Afr Amer 99 mL/min (>60); Globulin 3.3 g/dL (2.2-4.2); Glucose 83 mg/dL (74-106); High Density Lipoprotein 70 mg/dL; Potassium 3.1 mmol/L (3.5-5.1); Protein, Total 6.8 g/dL (6.4-8.2); Sodium Level 138 mmol/L (136-145); Thyroid Stim Hormone (TSH) 2.14 uIU/mL (0.358-3.74); Triglycerides 65 mg/dL; Very Low Density Lipoprotein 13 mg/dL (5-40)
== END | disposition home or self-care (01) ==
LOC: POLAB3 13:17
PROVIDERS: PCP Family Medicine Geriatric Medicine; Visit Provider Family Medicine Geriatric Medicine
DX: R53.83 Other fatigue (principal); E78.5 Hyperlipidemia, unspecified
CPT/HCPCS: 36415; 80053; 80061; 84443; 85025

== ENCOUNTER → 2024-01-08 | Outpatient (CLI) | payer MEDICAID, SELFPAY ==
--- NOTE | 2024-01-08 12:11 | BI_ITS ---
MAMMOGRAPHY - BILATERAL SCREENING REASON FOR EXAM: Female, 53 years old. Routine annual screening examination. PERTINENT HISTORY: Non-contributory. TECHNIQUE: Digital bilateral breast nba (3D mammographic acquisition) in the CC and MLO projections. 2-D mediolateral oblique (MLO) and craniocaudad (CC) views of both breasts were obtained. CAD: Full Field Digital Mammography with Computer Added Detection was performed. COMPARISON: Comparison is made with prior outside examination of May 31, 2022. FINDINGS: Breast Composition: The breasts are extremely dense, which lowers the sensitivity of mammography. There are no dominant masses or suspicious calcifications. No other significant abnormalities are identified. There has been no significant change since the prior study. BI/SCRN MAMM (CAD)W/NBA BILAT IMPRESSION: Stable bilateral screening mammogram. Yearly follow-up mammogram recommended. (A) ASSESSMENT CATEGORY: BIRADS Category 2: Benign. A letter regarding these results will be sent to the patient by the facility within 30 days. Approximately 10% of breast cancers are not detected by mammography. A normal mammogram should not delay biopsy of a clinically suspicious abnormality. [id number] Electronically Signed: Paramjit Watt MD at 12:54 EDT ,
[2024-01-08 13:09] LABS: Anion Gap 4 (5-15); BUN 9 mg/dL (7-18); BUN/Creat Ratio 12.6 RATIO (10-20); Calcium,Total 8.6 mg/dL (8.5-10.1); Chloride 107 mmol/L (98-107); Creatinine, Serum 0.71 mg/dL (0.55-1.02); EST Glomerular Filtration Rate 91 mL/min (>60); Est Glom Filt Rate - Afr Amer 111 mL/min (>60); Glucose 90 mg/dL (74-106); Potassium 3.8 mmol/L (3.5-5.1); Sodium Level 139 mmol/L (136-145)
== END | disposition home or self-care (01) ==
PROVIDERS: PCP Family Medicine Geriatric Medicine; Referring Provider Family Medicine Geriatric Medicine; Visit Provider Family Medicine Geriatric Medicine
DX: Z12.31 Encounter for screening mammogram for malignant neoplasm of breast (principal); R53.83 Other fatigue
CPT/HCPCS: 36415; 77063; 77067; 80048

== ENCOUNTER → 2024-06-24 | Outpatient (CLI) | payer MEDICAID, SELFPAY ==
[2024-06-24 13:35] LABS: Absolute Lymphocyte Count 1.46 X10^3/uL (0.83-4.51); Absolute Neutrophil Count 3.7 X10^3/uL (2.0-7.7); Basophil# 0.02 X10^3/uL; Basophil% 0.3 % (0-1); Hematocrit 33.6 % (37-47); Hemoglobin 10.7 g/dL (12.0-15.0); Lymphocyte # 1.46 X10^3/ul (0.83-4.51); Lymphocyte % 24.4 % (19-41); Mean Corp Hgb Conc 31.8 g/dL (32-36); Mean Corpuscular Hgb 29.3 pg (27.0-32.0); Mean Corpuscular Volume 92.1 fL (81-99); Monocyte# 0.49 X10^3/uL; Monocyte% 8.2 % (0-10); NRBC Flagged by Analyzer 0 % (0-5); Neutrophil % 61.9 % (47-70); Platelet Count 330 K/mm3 (150-450); RBC Distribution Width CV 14.9 % (11.6-14.6); RBC Distribution Width SD 50.8 fl (35.1-43.9); Red Blood Count 3.65 M/mm3 (4.2-5.4)
[2024-06-24 14:11] LABS: ALB/GLOB Ratio 1.1 RATIO (0.9-2.4); AST(SGOT) 13 U/L (15-37); Alanine Aminotransfer ALT/SGPT 11 U/L (13-56); Albumin, Serum 3.4 g/dL (3.2-5.0); Alkaline Phosphatase 49 U/L (45-117); Anion Gap 4 (5-15); BUN 14 mg/dL (7-18); BUN/Creat Ratio 20.7 RATIO (10-20); Calcium,Total 8.6 mg/dL (8.5-10.1); Chloride 107 mmol/L (98-107); Cholesterol 192 mg/dL (200); Creatinine, Serum 0.68 mg/dL (0.55-1.02); EST Glomerular Filtration Rate 97 mL/min (>60); Est Glom Filt Rate - Afr Amer 118 mL/min (>60); Globulin 3.2 g/dL (2.2-4.2); Glucose 91 mg/dL (74-106); High Density Lipoprotein 73 mg/dL; Potassium 2.9 mmol/L (3.5-5.1); Protein, Total 6.6 g/dL (6.4-8.2); Sodium Level 140 mmol/L (136-145); Total Bilirubin < 0.10 mg/dL (0.20-1.00); Triglycerides 64 mg/dL; Very Low Density Lipoprotein 13 mg/dL (5-40)
== END | disposition home or self-care (01) ==
LOC: POLAB3 13:22
PROVIDERS: PCP Family Medicine Geriatric Medicine; Visit Provider Family Medicine Geriatric Medicine
DX: E78.5 Hyperlipidemia, unspecified (principal); R53.83 Other fatigue
CPT/HCPCS: 36415; 80053; 80061; 84443; 85025

== ENCOUNTER → 2024-12-25 | Outpatient (CLI) | payer MEDICAID, SELFPAY ==
[2024-12-25 13:25] LABS: Absolute Lymphocyte Count 1.26 X10^3/uL (0.83-4.51); Basophil# 0.01 X10^3/uL; Basophil% 0.2 % (0-1); Eosinophil# 0.09 X10^3/uL; Eosinophils% 1.9 % (0-5); Hematocrit 36.9 % (37-47); Hemoglobin 12.4 g/dL (12.0-15.0); Lymphocyte # 1.26 X10^3/ul (0.83-4.51); Lymphocyte % 26.9 % (19-41); Mean Corp Hgb Conc 33.6 g/dL (32-36); Mean Corpuscular Volume 92.3 fL (81-99); Monocyte# 0.34 X10^3/uL; Monocyte% 7.3 % (0-10); NRBC Flagged by Analyzer 0 % (0-5); Neutrophil # 2.97 X10^3/uL (2.7-7.7); Neutrophil % 63.5 % (47-70); Platelet Count 289 K/mm3 (150-450); RBC Distribution Width SD 43.8 fl (35.1-43.9); White Blood Count 4.7 K/mm3 (4.4-11.0)
[2024-12-25 20:31] LABS: Cholesterol 211 mg/dL (<=200); High Density Lipoprotein 73 mg/dL; Low Density Lipoprotein Calc. 130 mg/dL; Triglycerides 37 mg/dL; Very Low Density Lipoprotein 7 mg/dL (5-40); cholesterol:hdl ratio screen 2.89
[2024-12-25 20:35] LABS: ALB/GLOB Ratio 1.6 RATIO (0.9-2.4); AST(SGOT) 21 U/L (<=31); Alanine Aminotransfer ALT/SGPT 12 U/L (<=34); Albumin, Serum 4.2 g/dL (3.5-5.0); Alkaline Phosphatase 53 U/L (35-104); Anion Gap 11 (5-15); BUN 13 mg/dL (4-19); BUN/Creat Ratio 18.1 RATIO (10-20); Chloride 105 mmol/L (98-108); EST Glomerular Filtration Rate 103 (>60); Globulin 2.7 g/dL (2.2-4.2); Glucose 92 mg/dL (70-99); Potassium 3.2 mmol/L (3.3-5.1); Protein, Total 6.9 g/dL (5.9-8.4); Sodium Level 140 mmol/L (133-145); Total Bilirubin < 0.15 mg/dL (0.00-1.30)
== END | disposition home or self-care (01) ==
LOC: POLAB3 13:14
PROVIDERS: PCP Family Medicine Geriatric Medicine; Visit Provider Family Medicine Geriatric Medicine
DX: R53.83 Other fatigue (principal); E78.5 Hyperlipidemia, unspecified
CPT/HCPCS: 36415; 80053; 80061; 84443; 85025

== ENCOUNTER → 2025-01-15 | Outpatient (CLI) | payer MEDICAID, SELFPAY ==
[2025-01-15 17:48] LABS: Anion Gap 10 (5-15); BUN 14 mg/dL (4-19); BUN/Creat Ratio 19.2 RATIO (10-20); Calcium,Total 9.1 mg/dL (7.6-11.0); Carbon Dioxide 27.4 mmol/L (21.0-32.0); Chloride 101 mmol/L (98-108); Creatinine, Serum 0.73 mg/dL (0.70-1.20); EST Glomerular Filtration Rate 99 (>60); Glucose 81 mg/dL (70-99); Potassium 3.7 mmol/L (3.3-5.1); Sodium Level 138 mmol/L (133-145)
== END | disposition home or self-care (01) ==
LOC: LAB 15:38
PROVIDERS: PCP Family Medicine Geriatric Medicine; Referring Provider Family Medicine Geriatric Medicine; Visit Provider Family Medicine Geriatric Medicine
DX: E87.6 Hypokalemia (principal)
CPT/HCPCS: 36415; 80048

== ENCOUNTER → 2025-04-22 | Outpatient (CLI) | payer MEDICAID, SELFPAY | END | disposition home or self-care (01) | LOC: POLAB3 16:59 | PROVIDERS: PCP Family Medicine Geriatric Medicine; Visit Provider Family Medicine Geriatric Medicine | DX: A69.20 Lyme disease, unspecified (principal); W57.XXXA Bitten or stung by nonvenomous insect and other nonvenomous arthropods, initial encounter | CPT/HCPCS: 36415; 86617 ×2 ==

== ENCOUNTER 2025-04-23 15:32 | Inpatient (IN) | payer MEDICAID, SELFPAY ==
[2025-04-23] VITALS (14 sets, daily range): BP systolic 99–128; BP diastolic 67–81; PULSE 62–84; RESP 12–21; TEMP 36.3–37.4; O2SAT 98–100; BMI 20.2; BMI 18.9
--- NOTE | 2025-04-23 16:09 | EKG12_ITS ---
Test Reason : Blood Pressure : */* mmHG Vent. Rate : 79 BPM Atrial Rate : 79 BPM P-R Int : 260 ms QRS Dur : 90 ms QT Int : 296 ms P-R-T Axes : 68 84 -81 degrees QTcB Int : 339 ms Sinus rhythm with 1st degree A-V block Marked ST abnormality, possible inferior subendocardial injury Abnormal ECG No previous ECGs available Confirmed by SHANAE REYNOLDS, ROLF ([id number]), market editor PEDRO YANG ([id number]) on 04/27/2025 2:02:30 PM Referred By: AVA Confirmed By: ROLF JOLLY MD
--- NOTE | 2025-04-23 16:09 | CT_ITS ---
PROCEDURE: STROKE BRAIN/HEAD WITHOUT CONT 04/23/2025 REASON FOR EXAM: NEURO DEFICIT, ACUTE, STROKE SUSPECTED TECHNIQUE: STROKE BRAIN/HEAD WITHOUT CONT Coronal and Sagittal reconstruction series were provided. One or more dose reduction techniques were used (e.g., Automated exposure control, adjustment of the mA and/or kV according to patient size, use of iterative reconstruction technique. RADIATION DOSE SUMMARY: CTDlvol: 44.99 mGy DLP: 779.24 mGycm COMPARISON: None. FINDINGS: No acute intracranial hemorrhage, extra-axial collection, mass effect or evidence of acute infarct. Ventricles and subarachnoid spaces are normal in size. Absent [place] ocular lenses. Intact skull base and calvarium. Clear paranasal sinuses and mastoid air cells. CT/STROKE Brain/Head without Cont IMPRESSION: No acute intracranial abnormality. Reading Location: [id number]
--- NOTE | 2025-04-23 16:10 | CM.ED ---
Social work Reason for referral: stroke alert SW responded to the stroke alert called for patient. Patient had already left for imaging, but patient's business support coordinator, Ja, remained in the room and was open to SW support. Ja stated all of what had occurred leading patient up to this point and SW used active listening and empathic support as needed. Patient returned from imaging and Ja stated no further needs at this time. Regina Garcia, [employer] TECHNICIAN, MACHINE STOPPAGE FREQUENCY CHECKER
--- NOTE | 2025-04-23 16:11 | ED.VIS.STROK ---
HPI History of Present Illness Chief Complaint: Other, Pain/Inj Detail of Chief Complaint: Leg pain and leg weakness upon awakening at 4:00 in the morning Informant: patient and spouse/S.O. Onset/Context/Timing Onset: - (Last known well April 22, 21: 3 0) Context: Sudden Onset Timing: Continuous Quality and Location: Positive for Right Leg Weakness and Difficulty with Ambulation Onset: Last known well April 22 at 2130 Current Severity: Moderate Maximum Severity: Moderate Worsened by: Nothing Relieved by: Nothing Associated Symptoms Associated Symptoms: Negative for Headache, Nausea, Vomiting or Chest Pain Narrative Narrative: Patient is a 54-year-old woman. She has a history of generalized anxiety disorder, major depressive disorder, anemia, who was seen yesterday and had titers drawn for Lyme disease. She was started on doxycycline. She recalls being bit by insects but no tick to her knowledge. Initially I was under the impression that she had Lyme's disease because she was placed on doxycycline and and patient states she received [address] Tate's office. She does not recall a rash. She denies headache, visual, ocular auditory symptoms. She denies trouble with speech or swallowing. She denies cardiac respiratory symptoms. Prior similar symptoms: No Recent Illness/Hospitalization: Yes [facility] Medical History Anemia Vitamin D deficiency Benzodiazepine dependence Hyperlipidemia Hypomagnesemia Hypokalemia Wears glasses Depression Restless legs Difficulty swallowing Gastric reflux Non-smoker Shortness of breath on exertion Anxiety Acid reflux Constipation Iron deficiency anemia Abdominal pain Home Medications ?Medication ?Instructions ?Recorded ?Last Taken ?Type famotidine 40 mg tablet 40 mg PO DAILY 12/26/22 Unknown History potassium chloride 20 mEq 20 meq PO BID 02/21/23 Unknown History tablet,extended release citalopram 20 mg tablet 20 mg PO DAILY #30 tabs 02/26/25 Unknown Rx Allergy/AdvReac Type Severity Reaction Status Date / Time No Known Allergies Allergy Verified 04/23/25 15:34 Family History Mother Diabetes Father Heart disease Surgical History Hx of colonoscopy Hx of esophagogastroduodenoscopy S/P hemorrhoidectomy History of lithotripsy S/P laparoscopic cholecystectomy Social History Smoking Status: Never smoker alcohol intake: never substance use type: does not use ROS ROS ED Constitutional Constitutional ED: Reports weakness; Denies chills, fever(s), subjective or sweats Eyes Eyes: Denies blurry vision or change in vision ENT ENT ED: Denies ear pain or rhinorrhea Cardiovascular Cardiovascular: Denies chest pain, palpitations or racing heartbeat Respiratory/Chest Respiratory/Chest: Denies cough, dyspnea or dyspnea on exertion Gastrointestinal Gastrointestinal: Denies abdominal pain, constipation, diarrhea, nausea or vomiting Genitourinary Genitourinary ED: Denies dysuria, hematuria or urinary frequency Musculoskeletal Musculoskeletal: Reports other Details: Bilateral leg pain Integumentary Denies rash Neurologic Neurologic: Reports headache(s) and paresthesias Psychiatric Psychiatric: Denies anxiety or depression Endocrine Endocrinology: Denies polydipsia, polyphagia or polyuria Hematologic/Lymphatic Hematologic/Lymphatic: Denies easy bleeding or easy bruising EXAM Physical Exam Const Vital Signs: 04/23/25 15:32 04/23/25 15:59 04/23/25 16:09 Temperature 98.6 F Temperature Source Oral Pulse Rate 81 Respiratory Rate 16 Respiratory Effort Normal Respiratory Pattern Normal Blood Pressure 122/71 H Blood Pressure Mean 88 Pulse Ox 100 100 Oxygen Delivery Method Room Air Room Air 04/23/25 16:09 Temperature Temperature Source Pulse Rate 84 Respiratory Rate 12 Respiratory Effort Respiratory Pattern Blood Pressure 120/70 Blood Pressure Mean 86 Pulse Ox 100 Oxygen Delivery Method Room Air Positive well nourished and well developed Constitutional Narrative: patient has alopecia. The cause of her alopecia is unknown. General Appearance ED: well developed and NAD HEENT Reports moist mucous membranes atraumatic Nose: other Eyes PERRL and EOMs intact bilaterally Eyes Narrative: There is no nystagmus. There is no visual field cut. General Eye ED: Negative for pale conjunctiva or scleral icterus Neck no lymphadenopathy, supple and no JVD Resp normal respiratory effort and clear to auscultation bilaterally Cardio no murmurs Rate: regular rate Rhythm: regular rhythm Heart Sounds: S1 normal and S2 normal GI normal to inspection, nondistended, normoactive bowel sounds, soft to palpation, non-tender, non-distended and no masses Back/Spine no CVA tenderness Extremity normal to inspection General Extremety ED: Negative for deformity, edema or tenderness General Extremity: Negative for deformity or edema Neuro oriented x3, CN's II-XII intact bilaterally and no sensory deficits noted [place] Coma Scale: document GCS findings Spontaneous Obeys Commands Oriented 15 Sensorium / Orientation: alert Speech: speech normal Gait (Neuro): Negative for normal gait Motor Exam: Negative for strength 5/5 throughout Psych mental status grossly normal Skin no wounds General Skin Exam: Negative for jaundice Lesions: no lesions Rashes: no rashes MDM MDM MDM Narrative Medical decision making narrative: Initially I thought this was due to Lyme's disease because she is on doxycycline however after reviewing her records indicates that her tests are all pending. This still may represent Lyme's disease since she does not recall when she could have been bit and she does not recall rash which is not uncommon in patients diagnosed with Lyme's disease. This may also represent a stroke as she does have slight drift on the right side significant weakness right lower extremity but she also has a slight drift on the left side. She has had no recent viral illness and her reflexes are brisk which would eliminate possibility of [place]?. Stroke workup was initiated. Stroke team was called. Lab Data Attestation: I reviewed the patient's lab results. Lab results narrative: Blood sugar slightly elevated 114. CBC is unremarkable. Labs: Laboratory Results - last 24 hr 04/23/25 04/23/25 16:07 16:22 WBC 12.9 H RBC 4.26 Hgb 12.8 Hct 36.7 L MCV 86.2 MCH 30.0 MCHC 34.9 RDW Std Deviation 47.9 H RDW Coeff of Jm 15.5 H Plt Count 524 H MPV 9.9 Immature Gran % (Auto) 0.800 Neut % (Auto) 89.7 H Lymph % (Auto) 5.0 L [place] % (Auto) 4.3 Eos % (Auto) 0.1 Baso % (Auto) 0.1 Absolute Neuts (auto) 11.6 H Absolute Lymphs (auto) 0.65 L Nucleated RBC % 0 POC Glucose 114 H Radiography Diagnostic Testing: Clinical Impression(s) from Imaging Studies Brain CT 04/23/25 16:09 IMPRESSION: No acute intracranial abnormality. Reading Location: [facility] Head/Neck CTA 04/23/25 16:15 IMPRESSION: Normal CTA of the head and neck. No large vessel occlusion or stenosis. Reading Location: [facility] EKG Initial EKG: Attestation: I personally reviewed and interpreted this EKG as follows: Interpretation: Sinus Rhythm (Rate to 79. There is evidence of first-degree heart block. VT interval is 260 ms. Cures duration 90 ms. QT duration 2096 ms. [place] is normal.) Management Discussion w/another healthcare provider: Hospitalist (Dr. Erika Cardona was consulted for admission. Suspect full admit since patient is having difficulty walking.), Bank Officer (Spoke with Dr. Ramirez the neurologist at [facility]. She agrees that she needs a stroke workup. She recommended MRI and echo etc.) and Radiologist Discharge Plan Dx/Rx/DC Orders Clinical Impression: Weakness of right side of body, SHARAD (generalized anxiety disorder) Disposition Disposition: Acute Care Hospital [facility] NIHSS NIHSS 1a. Level of Consciousness: 0 - Alert; keenly responsive 1b. LOC Questions: 0 - Answers BOTH questions correctly 1c. LOC Commands: 0 - Performs BOTH tasks correctly 2. Best Gaze: 0 - Normal 3. Visual: 0 - No visual loss 4. Facial Palsy: 0 - Normal symmetrical movements 5a. Left Arm: 0 - No drift; arm holds 90 (or 45) degrees for full 10 seconds 5b. Right Arm: 1 - Drift; arm drifts downward but doesn?t hit the bed 6a. Left Le - No drift; leg holds 30-degree position for full 5 seconds 6b. Right Le - Some effort against gravity; 7. Limb Ataxia: 0 - Absent 8. Sensory: 0 - Normal; no sensory loss 9. Best Language: 0 - No aphasia; normal 10. Dysarthria: 0 - Normal 11. Extinction and Inattention: 0 - No abnormality Total: 3 Stroke Questions Stroke Team Activated: Yes Reviewed Inclusion/Exclusion criteria: Yes IV Thrombolytic Administered: No No contraindications from thrombolytic administration: No
--- NOTE | 2025-04-23 16:15 | CT_ITS ---
PROCEDURE: STROKE CTA HEAD AND NECK W/CON 04/23/2025 REASON FOR EXAM: NEURO DEFICIT, ACUTE, STROKE SUSPECTED TECHNIQUE: STROKE CTA HEAD AND NECK W/CON Multiplanar Sagittal and Coronal images were obtained. 3D and MIP multiplanar post processing was performed. CONTRAST: Isovue 370 VOLUME: 75 mL One or more dose reduction techniques were used (e.g., Automated exposure control, adjustment of the mA and/or kV according to patient size, use of iterative reconstruction technique). RADIATION DOSE SUMMARY: CTDlvol: 19 mGy DLP: 458.1 mGycm COMPARISON: Concomitant noncontrast CT head same day. No prior angiographic exam. FINDINGS: CTA HEAD: Widely patent intracranial arterial vasculature. No large vessel occlusion, flow-limiting stenosis, saccular aneurysm, or vascular malformation identified. origin of bilateral posterior cerebral arteries with diminutive/hypoplastic communication with the basilar tip, an anatomic variant. CTA NECK: Conventional aortic arch branching. Bilateral cervical carotid and codominant vertebral arteries are widely patent without stenosis. No luminal irregularity to suggest aneurysm or dissection. CT/STROKE CTA Head AND Neck W/Con IMPRESSION: Normal CTA of the head and neck. No large vessel occlusion or stenosis. Reading Location: [id number]
[2025-04-23 16:35] LABS: Hematocrit 36.7 % (37-47); Hemoglobin 12.8 g/dL (12.0-15.0); Immature Granulocytes Count 0.100 X10^3/uL (0.0-0.0); Mean Corp Hgb Conc 34.9 g/dL (32-36); Mean Corpuscular Volume 86.2 fL (81-99); Mean Platelet Vol. 9.9 fl (6.2-12.0); NRBC Flagged by Analyzer 0 % (0-5); Platelet Count 524 K/mm3 (150-450); RBC Distribution Width CV 15.5 % (11.6-14.6); RBC Distribution Width SD 47.9 fl (35.1-43.9); Red Blood Count 4.26 M/mm3 (4.2-5.4); White Blood Count 12.9 K/mm3 (4.4-11.0)
[2025-04-23 16:56] LABS: Anion Gap 16 (5-15); BUN 21 mg/dL (4-19); BUN/Creat Ratio 31.8 RATIO (10-20); Calcium,Total 9.7 mg/dL (7.6-11.0); Carbon Dioxide 23.7 mmol/L (21.0-32.0); Chloride 102 mmol/L (98-108); Estimated Creatinine Clearance 71.67 ml/min (50-250); Glucose 118 mg/dL (70-99); Potassium 1.5 mmol/L (3.3-5.1); Troponin T High Sensitivity 35 ng/L (<=14)
--- NOTE | 2025-04-23 17:11 | PCM.HP.STD ---
HPI - General General Date of Admission: 04/23/25 Date of Service: 04/23/25 Chief Complaint: Weakness right leg greater than left HPI Narrative YULISSA ALAN, is a 54-year-old female history of GERD, anxiety, depression presented to [facility] ED 04/23/2025 with right leg pain and weakness upon waking at 4 AM. She was seen yesterday by her PCP and had titers drawn for Lyme disease through her PCPs office but does not appear she has formal diagnosis of this. In the ED patient with significant right lower extremity weakness and right upper extremity drift. Brisk reflexes. Temp 98.6, heart rate 81 with blood pressure 122/71, respirate 16 pulse ox 100% on room air. CBC with white blood cell count of 12.9, hemoglobin 12.8 and platelet count 524. CT head no acute process, CTA head and neck no acute process. BMP with potassium of 1.5, BUN 21 and creatinine 0.65. Troponin of 35. Teleneuro recommended admission for stroke workup. Hospitalist contacted for admission. Patient evaluated at bedside. She reports that last night she went to bed and had woke up with diffuse weakness legs greater than arms and right lower extremity greater than left lower extremity to the point where she is unable to ambulate prompting her to come to the ED. Denies any back pain whatsoever, no new rashes, bleeding, bruising, no chest pain, no headache or changes in vision, no sensory changes. Initially said that right lower extremity hurt but when asked to describe the pain she said when she gets up to walk it is just so weak that it is hard for her and on further prompting it does not seem that there is overt pain but she seems to be more referring to her weakness. [facility] Medical History Anemia Vitamin D deficiency Benzodiazepine dependence Hyperlipidemia Hypomagnesemia Hypokalemia Wears glasses Depression Restless legs Difficulty swallowing Gastric reflux Non-smoker Shortness of breath on exertion Anxiety Acid reflux Constipation Iron deficiency anemia Abdominal pain Home Medications ?Medication ?Instructions ?Recorded ?Last Taken ?Type famotidine 40 mg tablet 40 mg PO DAILY 12/26/22 Unknown History potassium chloride 20 mEq 20 meq PO BID 02/21/23 Unknown History tablet,extended release citalopram 20 mg tablet 20 mg PO DAILY #30 tabs 02/26/25 Unknown Rx Allergy/AdvReac Type Severity Reaction Status Date / Time No Known Allergies Allergy Verified 04/23/25 15:34 Family History Mother Diabetes Father Heart disease Surgical History Hx of colonoscopy Hx of esophagogastroduodenoscopy S/P hemorrhoidectomy History of lithotripsy S/P laparoscopic cholecystectomy Social History Smoking Status: Never smoker alcohol intake: never substance use type: does not use ROS ROS Narrative General: Denies fever/chills HENT: Denies headache, denies stuffy nose, denies sore throat EYES: Denies changes in vision Resp: Denies cough, denies shortness of breath Cardiac: Denies chest pain GI: Denies abdominal pain, denies changes in bowel, denies nausea/vomiting : Denies changes in urination Extremity: Denies swelling MSK: Generally weak, legs greater than arms and right leg greater than left leg Neuro: Denies any numbness/tingling Heme: Denies any bleeding or bruising Skin: Denies rashes Psychiatric: No complaints voiced Vital Signs Vital Signs Vital Signs: 04/23/25 15:32 04/23/25 15:59 04/23/25 16:09 Temperature 98.6 F Temperature Source Oral Pulse Rate 81 Respiratory Rate 16 Respiratory Effort Normal Respiratory Pattern Normal Blood Pressure 122/71 H Blood Pressure Mean 88 Pulse Ox 100 100 Oxygen Delivery Method Room Air Room Air 04/23/25 16:09 Temperature Temperature Source Pulse Rate 84 Respiratory Rate 12 Respiratory Effort Respiratory Pattern Blood Pressure 120/70 Blood Pressure Mean 86 Pulse Ox 100 Oxygen Delivery Method Room Air Weight Weight: 45.359 kg Body Mass Index (BMI) 20.2 Physical Exam Narrative General: Alert, oriented, no apparent distress HEENT: Atraumatic, normocephalic Eyes: Anicteric, normal conjunctiva, extraocular movements intact, pupils equal Neck: Supple Respiratory: Clear to auscultation bilaterally, normal respiratory effort Cardiovascular: Regular rate and rhythm GI: Soft, nontender, nondistended Extremities: No edema Musculoskeletal: Strength 5 out of 5 in right upper extremity, 5 out of 5 left upper extremity, 1 out of 5 right lower extremity, 2 - out of 5 left lower extremity Neuro: Aside from weakness no overt focal deficits, cranial nerves II through XII intact, [id number] without significant difficulty bilaterally, very brisk lower extremity reflexes Skin: No rashes appreciated Psych: Cooperative Results Lab / Micro Data 04/23/25 16:07 04/23/25 16:07 Labs: Laboratory Results - last 24 hr 04/23/25 16:07: WBC 12.9 H, RBC 4.26, Hgb 12.8, Hct 36.7 L, MCV 86.2, MCH 30.0, MCHC 34.9, RDW Std Deviation 47.9 H, RDW Coeff of Jm 15.5 H, Plt Count 524 H, MPV 9.9, Immature Gran % (Auto) 0.800, Neut % (Auto) 89.7 H, Lymph % (Auto) 5.0 L, [place] % (Auto) 4.3, Eos % (Auto) 0.1, Baso % (Auto) 0.1, Absolute Neuts (auto) 11.6 H, Absolute Lymphs (auto) 0.65 L, Nucleated RBC % 0, Sodium 142, Potassium 1.5 L*, Chloride 102, Carbon Dioxide 23.7, Anion Gap 16 H, BUN 21 H, Creatinine 0.65 L, Estim Creat Clear Calc 71.67, Est GFR (MDRD) Non-Af 105, BUN/Creatinine Ratio 31.8 H, Glucose 118 H, Calcium 9.7, Troponin T High Sens 35 H 04/23/25 16:22: POC Glucose 114 H Imaging Radiology Impression Brain CT 04/23/25 16:09 IMPRESSION: No acute intracranial abnormality. Reading Location: [facility] Head/Neck CTA 04/23/25 16:15 IMPRESSION: Normal CTA of the head and neck. No large vessel occlusion or stenosis. Reading Location: [facility] Assessment & Plan Assessment/Plan (1) Right leg weakness: (2) Acute hypokalemia: PLAN: Plan # Generalized weakness but right lower extremity greater than left -Admit to tele -Suspect that the generalized aspect of weakness may be due to her potassium of 1.5 however she does have focal findings of right lower extremity weak compared to the left so do think patient needs stroke rule out -CT head w/ no acute process -CTA head and neck no acute process -MRI ordered -NIH q4hr -asa, statin -Echo w/ bubble study -PT/OT/Speech eval -Teleneuro consult placed -Hold BP medications to allow for permissive hypertension for 24 hours unless SBP greater than 220 or DBP greater than 120 or until stroke is ruled out #Hypokalemia - Profound hypokalemia with potassium of 1.5 necessitating ICU admission for monitoring -Patient ordered 40 mill equivalents of IV potassium in the ED, will add 40 oral -Trend BMP -Magnesium to be checked -EKG with sinus rhythm with rate of 79, did note first-degree AV block -Patient be monitored on telemetry in the ICU -Patient does report history of hypokalemia and that 1 time she had to come to the hospital for IV potassium but takes 1 potassium pill a day at home, she is unsure if it is 20 or 40 mill equivalents. She said that they are unsure why she has hypokalemia # Elevated troponin - Troponin of 35, no chest pain or other cardiac complaints - EKG with sinus rhythm with first-degree AV block - Do not think patient has a primary cardiac process at this time - Patient will be monitored on telemetry #GERD -Continue famotidine #Depression/anxiety -Continue home medications #DVT ppx: SCDs Erika Cardona MD Charges/Coding Visit Charges Inpatient E&M: 79047 Init Hosp L2
[2025-04-23 17:19] LABS: Prothrombin Time (Protime)PT. 14.2 SECONDS (11.7-14.9)
[2025-04-23 17:20] LABS: Partial Thromboplast Time 25.3 Seconds (24.1-36.2)
[2025-04-23] MEDS: Potassium Chloride 10mEq/100mL 10 MEQ/100 ML IV.SOLN. 100 MEQ IV BOLUS ×5 (17:26→22:59)
--- NOTE | 2025-04-23 17:36 | ECHOD_ITS ---
Reason For Study Reason For Study: TIA/CVA Procedure This was a 2D Doppler, Color Flow transthoracic echocardiogram. Exam performed portable in ICU/CCU. Left Ventricle Normal LV size. Left ventricular systolic function is normal. The left ventricular ejection fraction is 60 %. No regional wall motion abnormalities noted. Right Ventricle Normal RV size. Normal systolic function. Atria Normal left atrium. Normal right atrium. Bubble contrast study is negative for PFO/ASD. Mitral Valve Normal mitral valve. Tricuspid Valve Normal tricuspid valve. Mild tricuspid valve insufficiency. Pulmonary artery systolic pressure is 22 mmHg. Aortic Valve Trisinus/trileaflet aortic valve. Pulmonic Valve Normal pulmonic valve. Great Vessels Normal aortic root. The pulmonary artery is normal size. Inferior vena cava collapse with respiration. Pericardium/Pleural No pericardial effusion. Medication Performed a rapid injection of agitated mix of 9 cc saline and 1cc air to assess for atrial septal defect. MMode/2D Measurements & Calculations LVIDd: 4.0 cm IVSd: 0.84 cm Ao root diam: 2.7 cm LVIDs: 2.5 cm LVPWd: 0.72 cm RVDd: 2.7 cm FS: 38.7 % LAV(MOD-bp): 23.7 ml LVAd ap4: 19.0 cm2 LVAd ap2: 22.4 cm2 LAV(MOD-bp) Indexed: 17.8 ml/m2 LVLd ap4: 6.4 cm LVLd ap2: 7.1 cm LAV(MOD-sp2): 22.0 ml EDV(MOD-sp4): 48.1 ml EDV(MOD-sp2): 61.8 ml LAV(MOD-sp4): 23.0 ml EDV(sp4-el): 47.4 ml EDV(sp2-el): 60.3 ml LVAs ap4: 10.9 cm2 LVAs ap2: 11.6 cm2 LVLs ap4: 5.3 cm LVLs ap2: 5.7 cm ESV(MOD-sp4): 19.2 ml ESV(MOD-sp2): 20.5 ml ESV(sp4-el): 18.9 ml ESV(sp2-el): 20.1 ml EF(MOD-sp4): 60.1 % EF(MOD-sp2): 66.8 % EF(sp4-el): 60.1 % SV(MOD-sp4): 28.9 ml SV(MOD-sp2): 41.3 ml SV(sp4-el): 28.5 ml SI(MOD-sp4): 21.7 ml/m2 SI(MOD-sp2): 31.0 ml/m2 LA A4 area: 10.8 cm2 LA dimension(2D): 2.6 cm RA A4 area: 7.8 cm2 TAPSE: 2.4 cm Time Measurements MV dec time: 0.15 sec Doppler Measurements & Calculations MV E max pradip: 88.4 cm/sec Lat Peak E' Pradip: 14.6 cm/sec Med Peak E' Pradip: 12.7 cm/sec MV A max pradip: 65.2 cm/sec E/E' lat: 6.0 E/E' med: 7.0 MV E/A: 1.4 MV dec slope: 607.1 cm/sec2 Ao V2 max: 123.0 cm/sec LV V1 max: 102.2 cm/sec Ao max P.1 mmHg LV V1 max P.2 mmHg Ao V2 mean: 85.4 cm/sec LV V1 mean P.1 mmHg Ao mean P.3 mmHg LV V1 mean: 68.2 cm/sec Ao V2 VTI: 30.0 cm LV V1 VTI: 23.2 cm AV (velocity ratio): 0.77 PA V2 max: 80.1 cm/sec TR max pradip: 214.9 cm/sec TR max P.5 mmHg ECHO/Echo Complete Interpretation Summary Normal LV size. Left ventricular systolic function is normal. The left ventricular ejection fraction is 60 %. Bubble contrast study is negative for PFO/ASD. Ordering Physician: Erika Cardona Referring Physician: Garcia Barfield Chi Performed By: Meaghan Mcmahon RDCS
[2025-04-23] MEDS: Potassium Chloride Oral Tablet 20 MEQ 40 MEQ PO (18:13)
[2025-04-23 18:19] LABS: Magnesium 1.8 mg/dL (1.5-2.2)
[2025-04-23 18:56] LABS: Troponin T High Sens 2 HR 33 ng/L (<=14)
[2025-04-23] MEDS: Lactated Ringers 1,000 ML 50 ML IV (18:56)
[2025-04-23] MEDS: Magnesium Sulfate 4gm/100mL 4 GM/100 ML IV.SOLN. IV (18:57)
[2025-04-23 21:40] LABS: Anion Gap 14 (5-15); BUN 17 mg/dL (4-19); BUN/Creat Ratio 32.5 RATIO (10-20); Calcium,Total 9.1 mg/dL (7.6-11.0); Carbon Dioxide 25.7 mmol/L (21.0-32.0); Chloride 105 mmol/L (98-108); Estimated Creatinine Clearance 85.59 ml/min (50-250); Glucose 109 mg/dL (70-99); Potassium 1.9 mmol/L (3.3-5.1)
[2025-04-23 21:50] LABS: Troponin T High Sens 4 HR 35 ng/L (<=14)
[2025-04-23] MEDS: Potassium Chloride Oral Tablet 20 MEQ PO (22:04)
--- OUTSIDE RECORDS SUMMARY | 2025-04-23 23:07 | XMS RPT_ITS | CCD ---
Author Organization [facility] Care Team Providers Care Water Registrar Name Role Phone LAKSHMI, TAE L Unavailable Unavailable LKASHMI, TAE L Unavailable Unavailable LAKSHMI, TAE L Unavailable Unavailable GUILLAUME, CALEB DO Unavailable Unavailable PROVIDER, UNKNOWN Unavailable Unavailable Bella, Jair M Unavailable Unavailable Bella, Jair M Unavailable Unavailable Bella, Jair M Unavailable Unavailable Bella, Jair M Unavailable Unavailable Guillaume, Rudolph Unavailable Unavailable Bella, Jair M Unavailable Unavailable Guillaume, Rudolph Unavailable Unavailable RUDOLPH CROWLEY DO Primary Care Physician [phone] [place], Dr. Citlali Chavarria Primary Care Provider [phone] [place], Dr. Citlali Chavarria Referring Provider Dr. Olivier Hoover Attending Provider Dr. Olivier Hoover Referring Provider Dr. Olivier Hoover Other Provider Sarah Loyd Attending Provider [facility]. Rukhsana Haynes Attending Provider [place], Dr. Citlali Chavarria Primary Care Provider Lico, Dr. Citlali Chavarria Referring Provider Dr. Rukhsana Bob Attending Provider [place], Dr. Citlali Chavarria Primary Care Provider Lico, Dr. Citlali Chavarria Referring Provider Dr. Rukhsana Bob Attending Provider L[place], Dr. Citlali Chavarria Primary Care Provider Lico, Dr. Citlali Chavarria Referring Provider Dr. Rukhsana Bob Attending Provider Lico REYNOLDS, Dr. Citlali Chavarria Primary Care Provider [phone] Lico REYNOLDS, Dr. Citlali Chavarria Attending Provider [phone] Lico, Citlali Chi Primary Care Unavailable GonsalesJhonyEllie Attending Unavailable FRANCISCO, MAURISIO Referring Unavailable Lico, Citlali Chi Referring Unavailable Lico, Citlali Chi Primary Care Unavailable Rukhsana Bob Attending Unavailable Lico, Citlali Chi Primary Care Unavailable Lico, Citlali Chi Referring Unavailable Lico, Citlali Chi Attending Unavailable Lico, Citlali Chi Primary Care Unavailable Lico, Citlali Chi Attending Unavailable Lico, Citlali Chi Primary Care Unavailable Lico, Citlali Chi Attending Unavailable Lico, Citlali Chi Primary Care Unavailable Rukhsana Bob Referring Unavailable Rukhsana Bob Attending Unavailable Medications Current Medications Medication Drug Class(es) Dates Sig (Normalized) Sig (Original) ascorbic acid 500 mg extended release oral tablet (10 sources) Vitamin C Start: 02-01-2023 take 1 tablet by mouth once daily Ascorbic Acid (Vitamin C) (Vitamin C) 500 mg Tablet Extended Release Active 500 mg PO DAILY February 01, 2023 12:00am citalopram 10 mg oral tablet (10 sources) Serotonin Reuptake Inhibitor Start: 02-08-2023 take 1 tablet by mouth once daily Citalopram 10 mg tablet Active 10 mg PO DAILY February 08, 2023 12:00am docusate sodium 100 mg oral capsule (2 sources) Start: 02-07-2022 End: 02-02-2023 DOK 100 mg oral capsule Dose : 100 mg = 1 cap(s), Oral, BID, # 180 cap(s), 3 Refill(s), Pharmacy: [id number], Constipation, 149, cm, 02/07/22 13:56:00 EDT, Height, kg, 02/07/22 13:56:00 EDT, Dosing Weight Start Date: 02/07/22 Stop Date: 02/02/23 Status: Ordered famotidine 40 mg oral tablet (10 sources) Histamine-2 Receptor Antagonist Start: 12-26-2022 take 1 tablet by mouth once daily Famotidine 40 mg tablet Active 40 mg PO DAILY December 26, 2022 12:00am Pediatric Multivitamin (Gummi Bear Multivitamin) tablet,chewable (10 sources) Start: 02-08-2023 Pediatric Multivitamin (Gummi Bear Multivitamin) tablet,chewable Active 1 {tbl} PO DAILY February 08, 2023 12:00am Start: 02-08-2023 take 1 tablet by feroz th once daily Pediatric Multivitamin (Gummi Bear Multivitamin) tablet,chewable Active 1 TABLET PO DAILY February 07, 2023 11:00pm Start: 02-08-2023 take 1 tablet by feroz th once daily Pediatric Multivitamin (Gummi Bear Multivitamin) tablet,chewable Active 1 TABLET PO DAILY February 08, 2023 12:00am polysaccharide iron complex 150 mg oral capsule (10 sources) Start: 12-26-2022 Polysaccharide Iron Complex (Ferrex 150) 150 mg iron capsule Active 150 mg PO DAILY December 26, 2022 12:00am potassium chloride 20 meq extended release oral tablet (19 sources) Start: 02-21-2023 take 1 tablet by mouth twice daily Potassium Chloride 20 mEq tablet extended release Active 20 meq PO TWICE A DAY February 21, 2023 2:25pm Start: 02-08-2023 End: 02-21-2023 take 1 tablet by mouth once daily Potassium Chloride 20 mEq tablet extended release Discontinued 20 meq PO DAILY February 08, 2023 12:00am February 21, 2023 2:25pm Completed/Discontinued Medications Medication Drug Class(es) Dates Sig (Normalized) Sig (Original) acetaminophen 325 mg / HYDROcodone bitartrate 5 mg oral tablet (11 sources) Opioid Agonist Start: 02-27-2017 End: 12-26-2022 Hydrocodone-Acetami nophen (Orefield 5-325 Tablet) 1 EACH tablet Discontinued 1 NMA PO EVERY 4 HOURS NEEDED as needed for Pain February 27, 2017 12:00am December 26, 2022 2:40pm ALPRAZolam 1 mg oral tablet (20 sources) Benzodiazepine Start: 02-27-2017 End: 02-21-2023 take 1 tablet by mouth twice daily Alprazolam (Xanax) 1 mg tablet Discontinued 1 mg PO TWICE A DAY February 08, 2023 8:09am February 21, 2023 2:25pm Ravin Gibtpe-Go-Vsocorjgnj el-Tea (Apple Cider Vinegar Plus) [phone] cl-koc-gr-mg tablet (10 sources) Start: 02-08-2023 End: 02-21-2023 Ravin SanchezLewnbf-Tk-Skmbzzcvt eel-Tea (Apple Cider Vinegar Plus) [phone] lt-dus-yy-mg tablet Discontinued 2 {tbl} PO DAILY February 08, 2023 12:00am February 21, 2023 2:25pm Start: 02-08-2023 End: 02-21-2023 take 2 tablets by mouth once daily Ravin Tdgzjo-Si-Ofeblbgzgabv-Tea (Apple Ci preeti Vinegar Plus) [phone] ou-wiy-ue-mg tablet Discontinued 2 TABLET PO DAILY February 07, 2023 11:00pm February 21, 2023 1:25pm Start: 02-08-2023 End: 02-21-2023 take 2 tablets by mouth once daily Ravin Bqporo-Gh-Kzpageulplmd-Tea (Apple Ci preeti Vinegar Plus) [phone] hz-rdr-px-mg tablet Discontinued 2 TABLET PO DAILY February 08, 2023 12:00am February 21, 2023 2:25pm Start: 02-08-2023 take 2 tablets by mo ut once daily Ravin Qinxga-Ou-Nfaxpewoigxu-Tea (Apple Ci preeti Vinegar Plus) [phone] xz-nva-jh-mg tablet Active 2 TABLET PO DAILY February 08, 2023 12:00am ciprofloxacin 500 mg oral tablet (20 sources) Quinolone Antimicrobial Start: 02-27-2017 End: 12-26-2022 take 1 tablet by mouth twice daily Ciprofloxacin Hcl 500 MG tablet Discontinued 500 mg PO TWICE A DAY March 02, 2017 12:00am December 26, 2022 2:40pm magnesium oxide 400 mg oral tablet (10 sources) Start: 02-08-2023 End: 02-21-2023 take 1 tablet by mouth once daily Magnesium Oxide 400 mg (241.3 mg magnesium) tablet Discontinued 400 mg PO DAILY February 08, 2023 12:00am February 21, 2023 2:25pm simethicone 80 mg chewable tablet (2 sources) Start: 02-07-2022 End: 04-08-2022 simethicone 80 mg oral tablet, chewable Dose : 80 mg = 1 tab(s), Chewed, QID, # 120 tab(s), 1 Refill(s), Pharmacy: [id number], IBS (irritable bowel syndrome) Acid reflux, 149, cm, 02/07/22 13:56:00 EDT, Height, kg, 02/07/22 13:56:00 EDT, Dosing Weight Start Date: 02/07/22 Stop Date: 04/08/22 Status: Ordered Problems Active Problems Problem Classification Problem Date Documented Da te Episodic/Chronic Abdominal pain (14 sources) Abdominal pain; Translations: [Unspecified abdominal pain] 01-03-2016 Episodic Anxiety disorders (13 sources) Anxiety; Translations: [Anxiety disorder, unspecified] Onset: 5 01-03-2016 Chronic Comment on above: ON MED Calculus of urinary tract (2 sources) History of calculus of kidney 01-03-2016 Episodic Deficiency and other anemia (11 sources) Anemia; Translations: [Anemia, unspecified] 01-03-2016 Episodic Deficiency and other anemia (10 sources) Iron deficiency anemia; Translations: [Iron deficiency anemia, unspecified] 02-01-2023 Episodic Comment on above: ON IRON SUPPLEMENT Disorders of lipid metabolism (1 source) Hyperlipidemia, unspecified; Translations: [Hyperlipidemia, unspecified] Onset: 4 Chronic Diverticulosis and diverticulitis (2 sources) Diverticular disease 01-13-2016 Chronic Esophageal disorders (10 sources) Gastroesophageal reflux disease; Translations: [Gastro-esophageal reflux disease without esophagitis] 12-26-2022 Chronic Fluid and electrolyte disorders (1 source) Hypokalemia; Translations: [Hypokalemia] Onset: 5 Episodic Gastrointestinal hemorrhage (12 sources) Hematochezia; Translations: [Melena] 12-26-2022 Episodic Hemorrhoids (2 sources) Bleeding external hemorrhoids 10-24-2019 Episodic Malaise and fatigue (1 source) Other fatigue; Translations: [Other fatigue] Onset: 5 Episodic Mood disorders (3 sources) Depressive disorder; Translations: [Major depressive disorder, recurrent, in full remission] Onset: 5 01-03-2016 Chronic Nutritional deficiencies (1 source) Iron deficiency Onset: 8 Chronic Other ear and sense organ disorders (2 sources) Impacted cerumen 02-03-2021 Episodic Other gastrointestinal disorders (12 sources) Constipation; Translations: [Constipation, unspecified] 01-03-2016 Episodic Other screening for suspected conditions (not mental disorders or infectious disease) (2 sources) Viral screening status 05-16-2022 Episodic Residual codes; unclassified (2 sources) Requires a tetanus booster 02-07-2022 Episodic Residual codes; unclassified (2 sources) Requires varicella vaccination 02-07-2022 Episodic Residual codes; unclassified (1 source) Insomnia, unspecified; Translations: [Insomnia, unspecified] Onset: 5 Episodic Unclassified (1 source) Unknown / UNK(Unknown) Onset: 8 Unclassified (2 sources) Eye glasses, device (physical object) 01-03-2016 Unclassified (2 sources) H/O: high risk medication 07-25-2019 Unclassified (10 sources) Patient encounter status 02-03-2021 Unclassified (2 sources) Procedure refused 05-16-2022 Past or Other Problems Problem Classification Problem Date Documented Da te Episodic/Chronic Deficiency and other anemia (10 sources) Anemia, unspecified; Translations: [Anemia, unspecified] Onset: 03-12-2024 12-26-2022 Episodic Deficiency and other anemia (8 sources) Iron deficiency anemia, unspecified; Translations: [Iron deficiency anemia, unspecified] Onset: 03-12-2024 02-21-2023 Episodic Results Test Name Value Interpretation Reference Range Facility [facility] 02-26-2025 MR/[place] [address] OFFICE VISIT Date of Service: 02/26/25 MR#: [id number] Acct: [id number] Name: YULISSA ALAN Rep #: [id number] : 1970 Provider: JON pérez Age/Sex: 54/F Location: [facility] [place].BP Status: Signed Intake Vital Signs 03/12/24 14:00 02/26/25 13:10 Height 4 ft 11 in 4 ft 11 in Weight: 95 lb BMI 19.1 BP 104/67 Blood Pressure Location Lt brachial Position Sitting Respiration 16 Pulse 68 Pulse Source Monitor BP Intake Visit Reasons: Depression/Anxiety Accompanied by: Self Allergies No Known Allergies Allergy (Verified 02/26/25 13:13) Medications ???Medication ???Instructions ???Recorded ???Confirmed ???Type famotidine 40 mg tablet 40 mg PO DAILY 12/26/22 02/26/25 H istory potassium chloride 20 mEq 20 meq PO BID 02/21/23 02/26/25 Hi story tablet,extended release citalopram 20 mg tablet 20 mg PO DAILY #30 tabs 02/26/25 0 02/26/25 Rx PFSH Medical History Anemia Vitamin D deficiency Benzodiazepine dependence Hyperlipidemia Hypomagnesemia Hypokalemia Wears glasses Depression Restless legs Difficulty swallowing Gastric reflux Non-smoker Shortness of breath on exertion Anxiety Acid reflux Constipation Iron deficiency anemia Abdominal pain Surgical History Hx of colonoscopy Hx of esophagogastroduodenoscopy S/P hemorrhoidectomy History of lithotripsy S/P laparoscopic cholecystectomy Family History Mother Diabetes Father Heart disease Social History Smoking Status: Never smoker alcohol intake: never substance use type: does not use HPI History of Present Illness History provided by: patient Chief complaint: Memory Concerns/ HPI: Yulissa Alan is a 54 year old female patient presenting today for an intake evaluation. Reports medication has been mostly effective but does feel some GI upset as well as some memory issues that her PCP believes may be related to alprazolam use. Sleep: Does take alprazolam at bedtime as needed to sleep about 3-4 times per week. Admits to concerns with falling asleep without alprazolam. 5 hours per night if she is taking alprazolam, if not taking alprazolam will sometimes take hours to fall asleep. Denies nightmares. Has never utilized any other sleep aids, aside from alprazolam at times. Interest: Denies feelings of sadness, aside from around the situation that led her to being on probation. Does find mariela in riding her bike, baking, and reading magazine. Energy: Does feel well rested in the morning. Reports energy to be good. Denies any lack of motivation. Guilt: Denies feelings of guilt, hopelessness, or worthlessness. Concentration: Admits to concerns with focus, concentration, and inattention. Reports this is not how she has always been. Admits to being easily distracted. Appetite: Appetite has been good. Does eat 3 meals and snacks during the day. Denies any changes in weight. Psychomotor: WNL Suicide: Denies SI/HI. Memory: Reports intermodal customer service memory intact. Short term memory is a concern for her. Reports she will forget what she had eaten the day before and is often misplacing things. Admits to missing appointments at times, forgetting birthdays, and forgetting if she did something. Anxiety: Does report feelings of irritability when there are too many people around. Does have periods of heightened anxiety during the day but denies specific triggers for anxiety. Does wish she could cope with things better and have more rica rather than worrying about everything. Denies panic attacks. Reports using coffee and riding her bike as a way to reduce anxiety. Obsessions: Denies Compulsions: Denies Makayla: Denies symptoms of makayla. PTSD: Denies any physical, emotional, or sexual trauma. Psychosis: Denies AVH. Denies paranoia. 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 Normal [facility] Basic Metabolic Profile (BMP )on 01-15-2025 BUN/CRE 19.2 RATIO Normal 10-20 [facility] Comment on above: Performed By: #### L 500.3440, L500.4100, L501.3720, L100.0100 #### [facility] [address] [place], [address] Calcium [Mass/Vol] 9.1 mg/dL Normal 7.6-11.0 [facility] Comment on above: Performed By: #### L 500.4050, L500.4100, L501.9520, L100.0100 #### [facility] [address] [place], [address] Chloride [Moles/Vol] 101 mmol/L Normal 98-108 [facility] Comment on above: Performed By: #### L 500.4050, L500.4100, L501.9520, L100.0100 #### [facility] [address] [place], [address] CO2 [Moles/Vol] 27.4 mmol/L Normal 21.0-32.0 [facility] Comment on above: Performed By: #### L 500.4050, L500.4100, L501.9520, L100.0100 #### [facility] [address] [place], [address] Creatinine [Mass/Vol] 0.73 mg/dL Normal 0.70-1.20 [facility] Comment on above: Performed By: #### L 500.4050, L500.4100, L501.9520, L100.0100 #### [facility] [address] [place], [address] GAP 10 Normal 5-15 [facility] Comment on above: Performed By: #### L 500.4050, L500.4100, L501.9520, L100.0100 #### [facility] [address] [place], [address] GFR/1.73 sq M.predicted among non-blacks MDRD (S/P/Bld) [Vol rate/Area] 99 mL/min/{1.73_m2} Normal >60 [facility] Comment on above: Result Comment: mL/m in/1.73m2 CKD-EPI Creatinine Equation (2020) Performed By: #### L 500.4050, L500.4100, L501.9520, L100.0100 #### [facility] [address] [place], [address] Glucose [Mass/Vol] 81 mg/dL Normal 70-99 [facility] Comment on above: Performed By: #### L 500.4050, L500.4100, L501.9520, L100.0100 #### [facility] [address] [place], [address] Potassium [Moles/Vol] 3.7 mmol/L Normal 3.3-5.1 [facility] Comment on above: Performed By: #### L 500.4050, L500.4100, L501.9520, L100.0100 #### [facility] [address] [place], [address] Sodium [Moles/Vol] 138 mmol/L Normal 133-145 [facility] Comment on above: Performed By: #### L 500.4050, L500.4100, L501.9520, L100.0100 #### [facility] [address] [place], [address] Urea nitrogen [Mass/Vol] 14 mg/dL Normal 4-19 [facility] Comment on above: Performed By: #### L 500.4050, L500.4100, L501.9520, L100.0100 #### [facility] [address] [place], [address] Absolute neutrophil countOrd ered By: Citlali Lee on 12-25-2024 Neutrophils (Bld) [#/Vol] 3.0 10*3/uL 2.0-7.7 [facility] Anion gap in Serum or Plasma Ordered By: Citlali Lee on 12-25-2024 Anion gap [Moles/Vol] 11 mmol/L 5-15 [facility] BUN/creatinine ratioOrdered By: Citlali Lee on 12-25-2024 Urea nitrogen/Creatinine [Mass ratio] 18.1 mg/mg 10-20 [facility] Basophil percentageOrdered B y: Citlali Lee on 12-25-2024 Basophils/100 WBC (Bld) 0.2 % 0-1 [facility] Bilirubin, totalOrdered By: Citlali Lee on 12-25-2024 Bilirubin [Mass/Vol] mg/dL 0.00-1.30 [facility] CBC W/Diff, Automatedon 11-30 Absolute Lymph 1.26 X10 3/uL Normal 0.83-4.51 [facility] Comment on above: Performed By: #### L 100.0100, L501.9520, L500.4100, L500.4050 #### [facility] [address] [place], [address] Absolute Neut 3.0 X10 3/uL Normal 2.0-7.7 [facility] Comment on above: Performed By: #### L 100.0100, L501.9520, L500.4100, L500.4050 #### [facility] [address] [place], [address] Basophils/100 WBC (Bld) 0.2 % Normal 0-1 [facility] Comment on above: Performed By: #### L 100.0100, L501.9520, L500.4100, L500.4050 #### [facility] [address] [place], [address] Eosinophils/100 WBC (Bld) 1.9 % Normal 0-5 [facility] Comment on above: Performed By: #### L 100.0100, L501.9520, L500.4100, L500.4050 #### [facility] [address] [place], [address] Erythrocyte distribution width (RBC) [Ratio] 13.0 % Normal 11.6-14.6 [facility] Comment on above: Performed By: #### L 100.0100, L501.9520, L500.4100, L500.4050 #### [facility] [address] [place], [address] Hematocrit (Bld) [Volume fraction] 36.9 % Low 37-47 [facility] Comment on above: Performed By: #### L 100.0100, L501.9520, L500.4100, L500.4050 #### [facility] [address] [place], [address] Hemoglobin (Bld) [Mass/Vol] 12.4 g/dL Normal 12.0-15.0 [facility] Comment on above: Performed By: #### L 100.0100, L501.9520, L500.4100, L500.4050 #### [facility] [address] [place], [address] IG% 0.200 Normal 0.0-0.9 [facility] Comment on above: Result Comment: IG% - Immature Granulocytes (promyelocytes, myelocytes and metamyelocytes) > 1% indicates that a LEFT SHIFT is Present. Performed By: #### L 100.0100, L501.9520, L500.4100, L500.4050 #### [facility] [address] [place], [address] Lymphocytes/100 WBC (Bld) 26.9 % Normal 19-41 [facility] Comment on above: Performed By: #### L 100.0100, L501.9520, L500.4100, L500.4050 #### [facility] [address] [place], [address] MCH (RBC) [Entitic mass] 31.0 pg Normal 27.0-32.0 [facility] Comment on above: Performed By: #### L 100.0100, L501.9520, L500.4100, L500.4050 #### [facility] [address] [place], [address] MCHC (RBC) [Mass/Vol] 33.6 g/dL Normal 32-36 [facility] Comment on above: Performed By: #### L 100.0100, L501.9520, L500.4100, L500.4050 #### [facility] [address] [place], [address] MCV (RBC) [Entitic vol] 92.3 fL Normal 81-99 [facility] Comment on above: Performed By: #### L 100.0100, L501.9520, L500.4100, L500.4050 #### [facility] [address] [place], [address] Monocytes/100 WBC (Bld) 7.3 % Normal 0-10 [facility] Comment on above: Performed By: #### L 100.0100, L501.9520, L500.4100, L500.4050 #### [facility] [address] [place], [address] Neutrophils/100 WBC (Bld) 63.5 % Normal 47-70 [facility] Comment on above: Performed By: #### L 100.0100, L501.9520, L500.4100, L500.4050 #### [facility] [address] [place], [address] Nucleated RBC (Bld) [#/Vol] 0 10*3/uL Normal 0-5 [facility] Comment on above: Performed By: #### L 100.0100, L501.9520, L500.4100, L500.4050 #### [facility] [address] [place], [address] Platelet mean volume (Bld) [Entitic vol] 10.0 fL Normal 6.2-12.0 [facility] Comment on above: Performed By: #### L 100.0100, L501.9520, L500.4100, L500.4050 #### [facility] [address] [place], [address] Platelets (Bld) [#/Vol] 289 10*3/uL Normal 150-450 [facility] Comment on above: Performed By: #### L 100.0100, L501.9520, L500.4100, L500.4050 #### [facility] [address] [place], [address] RBC (Bld) [#/Vol] 4.00 10*6/uL Low 4.2-5.4 [facility] Comment on above: Performed By: #### L 100.0100, L501.9520, L500.4100, L500.4050 #### [facility] [address] [place], [address] RDW SD 43.8 fl Normal 35.1-43.9 [facility] Comment on above: Performed By: #### L 100.0100, L501.9520, L500.4100, L500.4050 #### [facility] [address] [place], [address] WBC (Bld) [#/Vol] 4.7 10*3/uL Normal 4.4-11.0 [facility] Comment on above: Performed By: #### L 100.0100, L501.9520, L500.4100, L500.4050 #### [facility] [address] [place], [address] Calculated very low density lipoprotein (VLDL) cholesterol measurementOrdered By: Citlali Lee on 12-25-2024 VLDL Cholesterol 7 mg/dL 5-40 [facility] Carbon dioxide, total [Moles /volume] in Central venous bloodOrdered By: Citlali Lee on 12-25-2024 CO2 [Moles/Vol] 24.0 mmol/L 21.0-32.0 [facility] Chloride assayOrdered By: Filemon araiza Lico on 12-25-2024 Chloride [Moles/Vol] 105 mmol/L 98-108 [facility] Comprehensive Metabolic Prof ilon 12-25-2024 Albumin [Mass/Vol] 4.2 g/dL Normal 3.5-5.0 [facility] Comment on above: Performed By: #### L 100.0100, L501.9520, L500.4100, L500.4050 #### [facility] [address] [place], [address] Albumin/Globulin [Mass ratio] 1.6 {ratio} Normal 0.9-2.4 [facility] Comment on above: Performed By: #### L 100.0100, L501.9520, L500.4100, L500.4050 #### [facility] [address] [place], [address] ALK PHOS 53 U/L Normal 35-104 [facility] Comment on above: Performed By: #### L 100.0100, L501.9520, L500.4100, L500.4050 #### [facility] [address] [place], [address] ALT [Catalytic activity/Vol] 12 U/L Normal <=34 [facility] Comment on above: Performed By: #### L 100.0100, L501.9520, L500.4100, L500.4050 #### [facility] [address] [place], [address] AST [Catalytic activity/Vol] 21 U/L Normal <=31 [facility] Comment on above: Performed By: #### L 100.0100, L501.9520, L500.4100, L500.4050 #### [facility] [address] [place], [address] BUN/CRE 18.1 RATIO Normal 10-20 [facility] Comment on above: Performed By: #### L 100.0100, L501.9520, L500.4100, L500.4050 #### [facility] [address] [place], [address] Calcium [Mass/Vol] 9.0 mg/dL Normal 7.6-11.0 [facility] Comment on above: Performed By: #### L 100.0100, L501.9520, L500.4100, L500.4050 #### [facility] [address] [place], [address] Chloride [Moles/Vol] 105 mmol/L Normal 98-108 [facility] Comment on above: Performed By: #### L 100.0100, L501.9520, L500.4100, L500.4050 #### [facility] [address] [place], [address] CO2 [Moles/Vol] 24.0 mmol/L Normal 21.0-32.0 [facility] Comment on above: Performed By: #### L 100.0100, L501.9520, L500.4100, L500.4050 #### [facility] [address] [place], [address] Creatinine [Mass/Vol] 0.70 mg/dL Normal 0.70-1.20 [facility] Comment on above: Performed By: #### L 100.0100, L501.9520, L500.4100, L500.4050 #### [facility] [address] [place], [address] GAP 11 Normal 5-15 [facility] Comment on above: Performed By: #### L 100.0100, L501.9520, L500.4100, L500.4050 #### [facility] [address] [place], [address] GFR/1.73 sq M.predicted among non-blacks MDRD (S/P/Bld) [Vol rate/Area] 103 mL/min/{1.73_m2} Normal >60 [facility] Comment on above: Result Comment: mL/m in/1.73m2 CKD-EPI Creatinine Equation (2020) Performed By: #### L 100.0100, L501.9520, L500.4100, L500.4050 #### [facility] [address] [place], [address] Globulin (S) [Mass/Vol] 2.7 g/dL Normal 2.2-4.2 [facility] Comment on above: Performed By: #### L 100.0100, L501.9520, L500.4100, L500.4050 #### [facility] [address] [place], [address] Glucose [Mass/Vol] 92 mg/dL Normal 70-99 [facility] Comment on above: Performed By: #### L 100.0100, L501.9520, L500.4100, L500.4050 #### [facility] [address] [place], [address] Potassium [Moles/Vol] 3.2 mmol/L Low 3.3-5.1 [facility] Comment on above: Performed By: #### L 100.0100, L501.9520, L500.4100, L500.4050 #### [facility] [address] [place], [address] Sodium [Moles/Vol] 140 mmol/L Normal 133-145 [facility] Comment on above: Performed By: #### L 100.0100, L501.9520, L500.4100, L500.4050 #### [facility] [address] [place], [address] T BILI < 0.15 Normal 0.00-1.30 [facility] Comment on above: Performed By: #### L 100.0100, L501.9520, L500.4100, L500.4050 #### [facility] [address] [place], [address] T PROT 6.9 g/dL Normal 5.9-8.4 [facility] Comment on above: Performed By: #### L 100.0100, L501.9520, L500.4100, L500.4050 #### [facility] [address] [place], [address] Urea nitrogen [Mass/Vol] 13 mg/dL Normal 4-19 [facility] Comment on above: Performed By: #### L 100.0100, L501.9520, L500.4100, L500.4050 #### [facility] [address] [place], [address] Eosinophil percentageOrdered By: Citlali Lee on 12-25-2024 Eosinophils/100 WBC (Bld) 1.9 % 0-5 [facility] Erythrocyte distribution wid th ratioOrdered By: Citlali Lee on 12-25-2024 Erythrocyte distribution width (RBC) [Ratio] 13.0 % 11.6-14.6 [facility] Erythrocyte distribution wid th standard deviationOrdered By: Citlali Lee on 12-25-2024 Erythrocyte distribution width (RBC) [Entitic vol] 43.8 fL 35.1-43.9 [facility] GFR/1.73 sq M.predicted karthikeyan g non-blacks MDRD (S/P/Bld) [Vol rate/Area]Ordered By: Citlali Lee on 12-25-2024 Estimated GFR (MDRD) Non-Af Amer 103 >60 [facility] Comment on above: mL/min/1.73m2 CKD-EP I Creatinine Equation (2020) Hematocrit Auto (Bld) [Volum e fraction]Ordered By: Citlali Lee on 12-25-2024 Hematocrit (Bld) [Volume fraction] 36.9 % Low 37-47 [facility] Hemoglobin measurementOrdere d By: Citlali Lee on 12-25-2024 Hemoglobin (Bld) [Mass/Vol] 12.4 g/dL 12.0-15.0 [facility] Immature granulocytes/100 WB C Auto (Bld)Ordered By: Citlali Lee on 12-25-2024 Immature granulocytes/100 WBC (Bld) 0.200 % 0.0-0.9 [facility] Comment on above: IG% - Immature Granu locytes (promyelocytes, myelocytes and metamyelocytes) > 1% indicates that a LEFT SHIFT is Present. LDL calc ser/plasOrdered By: Citlali Lee on 12-25-2024 LDL Cholesterol, Calculated 130 mg/dL [facility] Comment on above: Itjxfhgiye=185-112 m g/dL & Higher Cwgz=487 mg/dL or greater Laboratory - Chemistry and C hemistry - challengeOrdered By: Citlali Lee on 12-25-2024 AST [Catalytic activity/Vol] 21 U/L <32 [facility] Lipid Profileon 12-25-2024 CHOL:HDL 2.89 Normal [facility] Comment on above: Performed By: #### L 100.0100, L501.9520, L500.4100, L500.4050 #### [facility] [address] [place], [place], [id number] Cholesterol [Mass/Vol] 211 mg/dL High <=200 [facility] Comment on above: Result Comment: Chol esterol level, Desirable <200 mg/dL Borderline high cholesterol 200-239 mg/dL High cholesterol >=240 mg/dL Recommendations of the NCEP Adult Treatment Panel for the following risk-cutoff thresholds for the [place] population. Performed By: #### L 100.0100, L501.9520, L500.4100, L500.4050 #### [facility] [address] [place], [place], [address] Cholesterol in HDL [Mass/Vol] 73 mg/dL Normal [facility] Comment on above: Result Comment: Jen onal Cholesterol Education Program (NCEP) guidelines: <40 mg/dL: Low HDL-cholesterol (major risk factor for CHD) >= 60 mg/dL: High HDL-cholesterol (negative risk factor for CHD) HDL-cholesterol is affected by a number of factors, e.g. smoking, exercise, hormones, sex and age. Performed By: #### L 100.0100, L501.9520, L500.4100, L500.4050 #### [facility] [address] [place], [address] Cholesterol in LDL [Mass/Vol] 130 mg/dL Normal [facility] Comment on above: Result Comment: Bord ectevk=148-773 mg/dL Higher Axeu=119 mg/dL or greater Performed By: #### L 100.0100, L501.9520, L500.4100, L500.4050 #### [facility] [address] [place], [address] Cholesterol in VLDL [Mass/Vol] 7 mg/dL Normal 5-40 [facility] Comment on above: Performed By: #### L 100.0100, L501.9520, L500.4100, L500.4050 #### [facility] [address] [place], [address] Triglyceride [Mass/Vol] 37 mg/dL Normal [facility] Comment on above: Result Comment: The drugs N-Acetylcysteine and Metamizole may falsely depress this assay. Normal range: <150 mg/dL Borderline High: 150-199 mg/dL High: 200-499 mg/dL Very High: >500 mg/dL Performed By: #### L 100.0100, L501.9520, L500.4100, L500.4050 #### [facility] [address] [place], [address] Lymphocytes Auto (Unsp spec) [#/Vol]Ordered By: Citlali Lee on 12-25-2024 Lymphocytes (Bld) [#/Vol] 1.26 10*3/uL 0.83-4.51 [facility] Lymphocytes/100 WBC Auto (Un sp spec)Ordered By: Citlali Lee on 12-25-2024 Lymphocytes/100 WBC (Bld) 26.9 % 19-41 [facility] MCV (mean corpuscular volume ) determinationOrdered By: Citlali Lee on 12-25-2024 MCV (RBC) [Entitic vol] 92.3 fL 81-99 [facility] Mean corpuscular hemoglobin (MCH) determinationOrdered By: Citlali Lee on 12-25-2024 MCH (RBC) [Entitic mass] 31.0 pg 27.0-32.0 [facility] Mean corpuscular hemoglobin concentration (MCHC) determinationOrdered By: Citlali Lee on 12-25-2024 MCHC (RBC) [Mass/Vol] 33.6 g/dL 32-36 [facility] Mean platelet volume determi nationOrdered By: Citlali Lee on 12-25-2024 Platelet mean volume (Bld) [Entitic vol] 10.0 fL 6.2-12.0 [facility] Monocyte percentageOrdered B y: Citlali Lee on 12-25-2024 Monocytes/100 WBC (Bld) 7.3 % 0-10 [facility] Neutrophil percentageOrdered By: Citlali Lee on 12-25-2024 Neutrophils/100 WBC (Bld) 63.5 % 47-70 [facility] Nucleated red blood cell per centageOrdered By: Citlali Lee on 12-25-2024 Nucleated RBC/100 WBC (Bld) [Ratio] 0 % 0-5 [facility] Platelet countOrdered By: Filemon Lee on 12-25-2024 Platelets (Bld) [#/Vol] 289 10*3/uL 150-450 [facility] Potassium (Unsp spec) [Mass/ Vol]Ordered By: Citlali Lee on 12-25-2024 Potassium [Moles/Vol] 3.2 mmol/L Low 3.3-5.1 [facility] RBC Auto (Bld) [#/Vol]Ordere d By: Citlali Lee on 12-25-2024 RBC (Bld) [#/Vol] 4.00 10*6/uL Low 4.2-5.4 [facility] Screening total cholesterol/ high density lipoprotein (HDL) cholesterol ratioOrdered By: Citlali Lee on 12-25-2024 Cholesterol.total/Cho lesterol in HDL [Mass ratio] 2.89 {ratio} [facility] Serum creatinine measurement (mass/volume)Ordered By: Citlali Lee on 12-25-2024 Creatinine [Mass/Vol] 0.70 mg/dL 0.70-1.20 [facility] Serum globulin measurementOr dered By: Citlali Lee 12-25-2024 Globulin (S) [Mass/Vol] 2.7 g/dL 2.2-4.2 [facility] Serum glucose measurement (m ass/volume)Ordered By: Citlali Lee 12-25-2024 Glucose [Mass/Vol] 92 mg/dL 70-99 [facility] Serum or plasma alanine blair otransferase (ALT) measurementOrdered By: Citlali Lee 12-25-2024 ALT [Catalytic activity/Vol] 12 U/L <35 [facility] Serum or plasma albumin susan urement (mass/volume)Ordered By: Citlali Lee 12-25-2024 Albumin [Mass/Vol] 4.2 g/dL 3.5-5.0 [facility] Serum or plasma albumin/glob ulin mass ratioOrdered By: Citlali Lee 12-25-2024 Albumin/Globulin [Mass ratio] 1.6 {ratio} 0.9-2.4 [facility] Serum or plasma alkaline ze sphatase measurementOrdered By: Citlali Lee 12-25-2024 ALP [Catalytic activity/Vol] 53 U/L 35-104 [facility] Serum or plasma calcium susan urement (mass/volume)Ordered By: Citlali Lee 12-25-2024 Calcium [Mass/Vol] 9.0 mg/dL 7.6-11.0 [facility] Serum or plasma cholesterol in HDL measurement (mass/volume)Ordered By: Citlali Lee 12-25-2024 Cholesterol in HDL [Mass/Vol] 73 mg/dL >40 [facility] Comment on above: National Cholesterol Education Program (NCEP) guidelines:<40 mg/dL: Low HDL-cholesterol (major risk factor for CHD)>= 60 mg/dL: High HDL-cholesterol (negative risk factor for CHD)HDL-cholesterol is affected by a number of factors, e.g. smoking, exercise, hormones, sex and age. Serum or plasma cholesterol measurement (mass/volume)Ordered By: Citlali Lee on 12-25-2024 Cholesterol [Mass/Vol] 211 mg/dL High <201 [facility] Comment on above: Cholesterol level, D esirable <200 mg/dLBorderline high cholesterol 200-239 mg/dLHigh cholesterol >=240 mg/dLRecommendations of the NCEP Adult Treatment Panel for the following risk-cutoff thresholds for the [place] population. Serum or plasma urea nitroge n measurement (mass/volume)Ordered By: Citlali Lee on 12-25-2024 Urea nitrogen [Mass/Vol] 13 mg/dL 4-19 [facility] Sodium levelOrdered By: Citlali Lee on 12-25-2024 Sodium [Moles/Vol] 140 mmol/L 133-145 [facility] TSH DL <= 0.005 mIU/L QnOrde red By: Citlali Lee on 12-25-2024 Thyroid Stimulating Hormone (TSH) 2.380 uIU/mL 0.300-4.200 [facility] Thyroid Stim Hormone (TSH)on 12-25-2024 TSH 2.380 uIU/mL Normal 0.300-4.200 [facility] Comment on above: Performed By: #### L 100.0100, L501.9520, L500.4100, L500.4050 #### [facility] [address] [place], [address] Total proteinOrdered By: Citlali Lee on 12-25-2024 Protein [Mass/Vol] 6.9 g/dL 5.9-8.4 [facility] Triglycerides measurementOrd ered By: Citlali Lee on 12-25-2024 Triglyceride [Mass/Vol] 37 mg/dL <199 [facility] Comment on above: The drugs N-Acetylcy steine and Metamizole may falsely depress this assay. Normal range: <150 mg/dLBorderline High: 150-199 mg/dLHigh: 200-499 mg/dLVery High: >500 mg/dL White blood cell (WBC) count Ordered By: Citlali Lee on 12-25-2024 WBC (Bld) [#/Vol] 4.7 10*3/uL 4.4-11.0 [facility] CBC W/Diff, Automatedon 09- Absolute Lymph 1.46 X10 3/uL Normal 0.83-4.51 [facility] Comment on above: Performed By: #### L 500.4050, L500.4100, L501.9520, L100.0100 #### [facility] [address] [place], [address] Absolute Neut 3.7 X10 3/uL Normal 2.0-7.7 [facility] Comment on above: Performed By: #### L 500.4050, L500.4100, L501.9520, L100.0100 #### [facility] [address] [place], [address] Basophils/100 WBC (Bld) 0.3 % Normal 0-1 [facility] Comment on above: Performed By: #### L 500.4050, L500.4100, L501.9520, L100.0100 #### [facility] [address] [place], [address] Eosinophils/100 WBC (Bld) 5.0 % Normal 0-5 [facility] Comment on above: Performed By: #### L 500.4050, L500.4100, L501.9520, L100.0100 #### [facility] [address] [place], [address] Erythrocyte distribution width (RBC) [Ratio] 14.9 % High 11.6-14.6 [facility] Comment on above: Performed By: #### L 500.4050, L500.4100, L501.9520, L100.0100 #### [facility] [address] [place], [address] Hematocrit (Bld) [Volume fraction] 33.6 % Low 37-47 [facility] Comment on above: Performed By: #### L 500.4050, L500.4100, L501.9520, L100.0100 #### [facility] [address] [place], [address] Hemoglobin (Bld) [Mass/Vol] 10.7 g/dL Low 12.0-15.0 [facility] Comment on above: Performed By: #### L 500.4050, L500.4100, L501.9520, L100.0100 #### [facility] [address] [place], [address] IG% 0.200 Normal 0.0-0.9 [facility] Comment on above: Result Comment: IG% - Immature Granulocytes (promyelocytes, myelocytes and metamyelocytes) > 1% indicates that a LEFT SHIFT is Present. Performed By: #### L 500.4050, L500.4100, L501.9520, L100.0100 #### [facility] [address] [place], [address] Lymphocytes/100 WBC (Bld) 24.4 % Normal 19-41 [facility] Comment on above: Performed By: #### L 500.4050, L500.4100, L501.9520, L100.0100 #### [facility] [address] [place], [address] MCH (RBC) [Entitic mass] 29.3 pg Normal 27.0-32.0 [facility] Comment on above: Performed By: #### L 500.4050, L500.4100, L501.9520, L100.0100 #### [facility] [address] [place], [address] MCHC (RBC) [Mass/Vol] 31.8 g/dL Low 32-36 [facility] Comment on above: Performed By: #### L 500.4050, L500.4100, L501.9520, L100.0100 #### [facility] [address] [place], [address] MCV (RBC) [Entitic vol] 92.1 fL Normal 81-99 [facility] Comment on above: Performed By: #### L 500.4050, L500.4100, L501.9520, L100.0100 #### [facility] [address] [place], [address] Monocytes/100 WBC (Bld) 8.2 % Normal 0-10 [facility] Comment on above: Performed By: #### L 500.4050, L500.4100, L501.9520, L100.0100 #### [facility] [address] [place], [address] Neutrophils/100 WBC (Bld) 61.9 % Normal 47-70 [facility] Comment on above: Performed By: #### L 500.4050, L500.4100, L501.9520, L100.0100 #### [facility] [address] [place], [address] Nucleated RBC (Bld) [#/Vol] 0 10*3/uL Normal 0-5 [facility] Comment on above: Performed By: #### L 500.4050, L500.4100, L501.9520, L100.0100 #### [facility] [address] [place], [address] Platelet mean volume (Bld) [Entitic vol] 10.0 fL Normal 6.2-12.0 [facility] Comment on above: Performed By: #### L 500.4050, L500.4100, L501.9520, L100.0100 #### [facility] [address] [place], [address] Platelets (Bld) [#/Vol] 330 10*3/uL Normal 150-450 [facility] Comment on above: Performed By: #### L 500.4050, L500.4100, L501.9520, L100.0100 #### [facility] [address] [place], [address] RBC (Bld) [#/Vol] 3.65 10*6/uL Low 4.2-5.4 [facility] Comment on above: Performed By: #### L 500.4050, L500.4100, L501.9520, L100.0100 #### [facility] [address] [place], [address] RDW SD 50.8 fl High 35.1-43.9 [facility] Comment on above: Performed By: #### L 500.4050, L500.4100, L501.9520, L100.0100 #### [facility] [address] [place], [address] WBC (Bld) [#/Vol] 6.0 10*3/uL Normal 4.4-11.0 [facility] Comment on above: Performed By: #### L 500.4050, L500.4100, L501.9520, L100.0100 #### [facility] [address] [place], [address] Comprehensive Metabolic Prof [facility] 06-24-2024 Albumin [Mass/Vol] 3.4 g/dL Normal 3.2-5.0 [facility] Comment on above: Performed By: #### L 500.4050, L500.4100, L501.9520, L100.0100 #### [facility] [address] [place], [address] Albumin/Globulin [Mass ratio] 1.1 {ratio} Normal 0.9-2.4 [facility] Comment on above: Performed By: #### L 500.4050, L500.4100, L501.9520, L100.0100 #### [facility] [address] [place], [address] ALK P 49 U/L Normal 45-117 [facility] Comment on above: Performed By: #### L 500.4050, L500.4100, L501.9520, L100.0100 #### [facility] [address] [place], [address] ALT [Catalytic activity/Vol] 11 U/L Low 13-56 [facility] Comment on above: Performed By: #### L 500.4050, L500.4100, L501.9520, L100.0100 #### [facility] [address] [place], [address] AST [Catalytic activity/Vol] 13 U/L Low 15-37 [facility] Comment on above: Performed By: #### L 500.4050, L500.4100, L501.9520, L100.0100 #### [facility] [address] [place], [address] BUN/CRE 20.7 RATIO High 10-20 [facility] Comment on above: Performed By: #### L 500.4050, L500.4100, L501.9520, L100.0100 #### [facility] [address] [place], [address] CA,Total 8.6 mg/dL Normal 8.5-10.1 [facility] Comment on above: Performed By: #### L 500.4050, L500.4100, L501.9520, L100.0100 #### [facility] [address] [place], [address] Chloride [Moles/Vol] 107 mmol/L Normal 98-107 [facility] Comment on above: Performed By: #### L 500.4050, L500.4100, L501.9520, L100.0100 #### [facility] [address] [place], [address] CO2 [Moles/Vol] 29.0 mmol/L Normal 21.0-32.0 [facility] Comment on above: Performed By: #### L 500.4050, L500.4100, L501.9520, L100.0100 #### [facility] [address] [place], [address] Creatinine [Mass/Vol] 0.68 mg/dL Normal 0.55-1.02 [facility] Comment on above: Result Comment: The validity of the calculated GFR GFRAA in patients over 70 years has not been determined. Clinical correlation is essential. Performed By: #### L 500.4050, L500.4100, L501.9520, L100.0100 #### [facility] [address] [place], [address] EST GFR - AA 118 mL/min Normal >60 [facility] Comment on above: Result Comment: Afri can [place] GFR Calc Performed By: #### L 500.4050, L500.4100, L501.9520, L100.0100 #### [facility] [address] [place], [address] GAP 4 Low 5-15 [facility] Comment on above: Performed By: #### L 500.4050, L500.4100, L501.9520, L100.0100 #### [facility] [address] [place], [address] GFR/1.73 sq M.predicted among non-blacks MDRD (S/P/Bld) [Vol rate/Area] 97 mL/min/{1.73_m2} Normal >60 [facility] Comment on above: Result Comment: Non- GFR Calc Performed By: #### L 500.4050, L500.4100, L501.9520, L100.0100 #### [facility] [address] [place], [address] Globulin (S) [Mass/Vol] 3.2 g/dL Normal 2.2-4.2 [facility] Comment on above: Performed By: #### L 500.4050, L500.4100, L501.9520, L100.0100 #### [facility] [address] [place], [address] Glucose [Mass/Vol] 91 mg/dL Normal 74-106 [facility] Comment on above: Performed By: #### L 500.4050, L500.4100, L501.9520, L100.0100 #### [facility] [address] [place], [address] Potassium [Moles/Vol] 2.9 mmol/L Low 3.5-5.1 [facility] Comment on above: Performed By: #### L 500.4050, L500.4100, L501.9520, L100.0100 #### [facility] [address] [place], [address] Sodium [Moles/Vol] 140 mmol/L Normal 136-145 [facility] Comment on above: Performed By: #### L 500.4050, L500.4100, L501.9520, L100.0100 #### [facility] [address] [place], [address] T BILI < 0.10 Low 0.20-1.00 [facility] Comment on above: Result Comment: For patients on eltrombopag therapy, use of Dimension [place] TBIL is not recommended. Performed By: #### L 500.4050, L500.4100, L501.9520, L100.0100 #### [facility] [address] [place], [address] T PROT 6.6 g/dL Normal 6.4-8.2 [facility] Comment on above: Performed By: #### L 500.4050, L500.4100, L501.9520, L100.0100 #### [facility] [address] [place], [address] Urea nitrogen [Mass/Vol] 14 mg/dL Normal 7-18 [facility] Comment on above: Performed By: #### L 500.4050, L500.4100, L501.9520, L100.0100 #### [facility] [address] [place], [address] Lipid Profileon 06-24-2024 Cholesterol [Mass/Vol] 192 mg/dL Normal 200 [facility] Comment on above: Result Comment: <200 mg/dL Desirable 200-240 mg/dL Borderline >240 mg/dL High Risk Performed By: #### L 500.4050, L500.4100, L501.9520, L100.0100 #### [facility] [address] [place], [address] Cholesterol in HDL [Mass/Vol] 73 mg/dL Normal [facility] Comment on above: Result Comment: The drugs N-Acetylcysteine and Metamizole may falsely depress this assay. Reference Range HDL <40 mg/dL Low HDL Cholesterol HDL >or= 60 mg/dL High HDL Cholesterol Performed By: #### L 500.4050, L500.4100, L501.9520, L100.0100 #### [facility] [address] [place], [address] Cholesterol in LDL [Mass/Vol] 106 mg/dL Normal 0-130 [facility] Comment on above: Performed By: #### L 500.4050, L500.4100, L501.9520, L100.0100 #### [facility] [address] [place], [address] Cholesterol in VLDL [Mass/Vol] 13 mg/dL Normal 5-40 [facility] Comment on above: Performed By: #### L 500.4050, L500.4100, L501.9520, L100.0100 #### [facility] [address] [place], [address] Triglyceride [Mass/Vol] 64 mg/dL Normal [facility] Comment on above: Result Comment: The drugs N-Acetylcysteine and Metamizole may falsely depress this assay. Serum Triglycerides Reference Interval Normal <150 mg/dL Borderline high 150 - 199 mg/dL High 200 - 499 mg/dL Very High > or = 500 mg/dL Performed By: #### L 500.4050, L500.4100, L501.9520, L100.0100 #### [facility] [address] [place], [address] Thyroid Stim Hormone (TSH)on 06-24-2024 TSH 1.550 uIU/mL Normal 0.358-3.740 [facility] Comment on above: Performed By: #### L 500.4050, L500.4100, L501.9520, L100.0100 #### [facility] [address] [place], [address] CBC W/Diff, Automatedon 03-01 Absolute Lymph 1.23 X10 3/uL Normal 0.83-4.51 [facility] Comment on above: Performed By: #### L 500.4050, L500.4100, L501.9520, L100.0100 #### [facility] [address] [place], [address] Absolute Neut 2.3 X10 3/uL Normal 2.0-7.7 [facility] Comment on above: Performed By: #### L 500.4050, L500.4100, L501.9520, L100.0100 #### [facility] [address] [place], [address] Basophils/100 WBC (Bld) 0.5 % Normal 0-1 [facility] Comment on above: Performed By: #### L 500.4050, L500.4100, L501.9520, L100.0100 #### [facility] [address] [place], [address] Eosinophils/100 WBC (Bld) 3.7 % Normal 0-5 [facility] Comment on above: Performed By: #### L 500.4050, L500.4100, L501.9520, L100.0100 #### [facility] [address] [place], [address] Erythrocyte distribution width (RBC) [Ratio] 13.9 % Normal 11.6-14.6 [facility] Comment on above: Performed By: #### L 500.4050, L500.4100, L501.9520, L100.0100 #### [facility] [address] [place], [address] Hematocrit (Bld) [Volume fraction] 38.0 % Normal 37-47 [facility] Comment on above: Performed By: #### L 500.4050, L500.4100, L501.9520, L100.0100 #### [facility] [address] [place], [address] Hemoglobin (Bld) [Mass/Vol] 12.3 g/dL Normal 12.0-15.0 [facility] Comment on above: Performed By: #### L 500.4050, L500.4100, L501.9520, L100.0100 #### [facility] [address] [place], [address] IG% 0.500 Normal 0.0-0.9 [facility] Comment on above: Result Comment: IG% - Immature Granulocytes (promyelocytes, myelocytes and metamyelocytes) > 1% indicates that a LEFT SHIFT is Present. Performed By: #### L 500.4050, L500.4100, L501.9520, L100.0100 #### [facility] [address] [place], [address] Lymphocytes/100 WBC (Bld) 30.1 % Normal 19-41 [facility] Comment on above: Performed By: #### L 500.4050, L500.4100, L501.9520, L100.0100 #### [facility] [address] [place], [address] MCH (RBC) [Entitic mass] 29.8 pg Normal 27.0-32.0 [facility] Comment on above: Performed By: #### L 500.4050, L500.4100, L501.9520, L100.0100 #### [facility] [address] [place], [address] MCHC (RBC) [Mass/Vol] 32.4 g/dL Normal 32-36 [facility] Comment on above: Performed By: #### L 500.4050, L500.4100, L501.9520, L100.0100 #### [facility] [address] [place], [address] MCV (RBC) [Entitic vol] 92.0 fL Normal 81-99 [facility] Comment on above: Performed By: #### L 500.4050, L500.4100, L501.9520, L100.0100 #### [facility] [address] [place], [address] Monocytes/100 WBC (Bld) 9.0 % Normal 0-10 [facility] Comment on above: Performed By: #### L 500.4050, L500.4100, L501.9520, L100.0100 #### [facility] [address] [place], [address] Neutrophils/100 WBC (Bld) 56.2 % Normal 47-70 [facility] Comment on above: Performed By: #### L 500.4050, L500.4100, L501.9520, L100.0100 #### [facility] [address] [place], [address] Nucleated RBC (Bld) [#/Vol] 0 10*3/uL Normal 0-5 [facility] Comment on above: Performed By: #### L 500.4050, L500.4100, L501.9520, L100.0100 #### [facility] [address] [place], [address] Platelet mean volume (Bld) [Entitic vol] 10.3 fL Normal 6.2-12.0 [facility] Comment on above: Performed By: #### L 500.4050, L500.4100, L501.9520, L100.0100 #### [facility] [address] [place], [address] Platelets (Bld) [#/Vol] 278 10*3/uL Normal 150-450 [facility] Comment on above: Performed By: #### L 500.4050, L500.4100, L501.9520, L100.0100 #### [facility] [address] [place], [address] RBC (Bld) [#/Vol] 4.13 10*6/uL Low 4.2-5.4 [facility] Comment on above: Performed By: #### L 500.4050, L500.4100, L501.9520, L100.0100 #### [facility] [address] [place], [address] RDW SD 46.5 fl High 35.1-43.9 [facility] Comment on above: Performed By: #### L 500.4050, L500.4100, L501.9520, L100.0100 #### [facility] [address] [place], [address] WBC (Bld) [#/Vol] 4.1 10*3/uL Low 4.4-11.0 [facility] Comment on above: Performed By: #### L 500.4050, L500.4100, L501.9520, L100.0100 #### [facility] [address] [place], [address] Ferritinon 03-12-2024 Ferritin [Mass/Vol] 10 ng/mL Normal 8-252 [facility] Comment on above: Performed By: #### L 500.4050, L500.4100, L501.9520, L100.0100 #### [facility] [address] [place], [address] Iron+Iron Binding Capacityon 03-12-2024 Iron [Mass/Vol] 143 ug/dL Normal 50-170 [facility] Comment on above: Performed By: #### L 500.4050, L500.4100, L501.9520, L100.0100 #### [facility] [address] [place], [address] IRON SATURATION 39.4 Normal 15.0-55.0 [facility] Comment on above: Performed By: #### L 500.4050, L500.4100, L501.9520, L100.0100 #### [facility] [address] [place], [address] TIBC 363 ug/dL Normal 250-450 [facility] Comment on above: Performed By: #### L 500.4050, L500.4100, L501.9520, L100.0100 #### [facility] [address] [place], [address] Oncology Visit Reporton 03-01 Oncology Visit Report [facility] [address] 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 She is G0, P0. She appears to be perimenopausal now but her menses were not excessive to her assessment. She has a past history of iron deficiency anemia from hemorrhoidal bleed for which she underwent hemorrhoidectomy some 4 to 5 years earlier. She used to take an oral iron supplement until a year or so ago recently restarted. PFS Medical History Anemia Vitamin D deficiency Benzodiazepine dependence Hyperlipidemia Hypomagnesemia Hypokalemia Wears glasses Depression Restless legs Difficulty swallowing Gastric reflux Non-smoker Shortness of breath on exertion Anxiety Acid reflux Constipation Iron deficiency anemia Abdominal pain Surgical History Hx of colonoscopy Hx of esophagogastroduodenoscopy S/P hemorrhoidectomy History of lithotripsy S/P laparoscopic cholecystectomy Family History Mother Diabetes Father Heart disease Social History Smoking Status: Never smoker alcohol intake: never substance use type: does not use ROS Constitutional Constitutional: Reports systems reviewed and no addt'l complaints, except as documented; Denies fatigue Eyes Eyes: Reports systems reviewed and no addt'l complaints, except as documented ENT HEENT: Reports systems reviewed and no addt'l complaints, except as documented Cardiovascular Cardiovascular: Reports systems reviewed and no addt'l complaints, except as documented Respiratory/Chest Respiratory/Chest: Reports systems reviewed and no addt'l complaints, except as documented Gastrointestinal Gastrointestinal: Reports systems reviewed and no addt'l complaints, except as documented and hemorrhoids; Denies hematochezia Genitourinary Genitourinary: Reports systems reviewed and no addt'l complaints, except as documented and other Details: Menstrual periods are becoming erratic and less frequent, had 1 in August 2023 then December 2023 ; Denies hematuria Integumentary Integumentary: Denies bleeding lesions Hematologic/Lymphatic Hematologic/Lymphatic: Denies easy bleeding or easy bruising Intake Vital Signs 09/12/23 14:45 03/12/24 14:00 Height 4 ft 11 in 4 ft 11 in Weight: 43.545 kg BMI 19.3 BP 114/72 Blood Pressure Location Lt brachial Position Sitting Respiration 18 Pulse 68 Pulse Source Monitor Temp 98.4 F Temperature Source Temporal Artery Pulse Oximetry (%) 100 Oxygen Delivery Method room air Intake Is patient in pain?: No Allergies No Known Allergies Allergy (Verified 03/12/24 14:03) Medications ???Medication ???Instructions ???Recorded ???Confirmed ???Type famotidine 40 mg tablet 40 mg PO DAILY 12/26/22 03/12/24 History polysaccharide iron complex 150 mg 150 mg PO DAILY 12/26/22 03/12/24 History iron capsule (Ferrex) ascorbic acid (vitamin C) 500 mg 500 mg PO DAILY 02/01/23 03/12/24 History tablet,extended release (Vitamin C ER) citalopram 10 mg tablet 10 mg PO DAILY 02/08/23 03/12/24 History pediatric multivitamin (Gummi Bear 1 tab PO DAILY 02/08/23 03/12/24 History Multivitamin chewable tablet) alprazolam 1 mg tablet (Xanax) 1 mg PO BID 02/21/23 03/12/24 History potassium chloride 20 mEq 20 meq PO BID 02/21/23 03/12/24 History tablet,extended release Central Venous Access Central Venous Access: No Laboratory Results 03/12/24 12/25/23 11/12/23 12:53 13:18 15:56 Hgb 12.3 11.1 L 12.5 MCV Iron Saturation 39.4 Ferritin 10 Vitamin B12 494 09/12/23 06/19/23 03/21/23 13:59 13:33 14:10 Hgb 11.0 L 11.8 L 12.8 MCV Iron Saturation 14.4 L 21.2 Ferritin 6 L 8 Vitamin B12 02/21/23 02/06/23 01/10/23 15:15 16:11 13:56 Hgb 11.8 L 10.9 L 10.4 L MCV 91.7 92.4 Iron Saturation 8.6 L Ferritin 9 Vitamin B12 12/12/22 01/07/15 08/29/12 16:28 17:19 09:55 Hgb 10.5 L 10.3 L 8.0 L MCV 88.9 81.2 70.1 L Iron Saturation Ferritin Vitamin B12 Coding Level of Care Code Off vis,est,level 3 Exam Problem Focused Diagnoses Anemia D64.9 Iron deficiency anemia D50.9 Assessment and Plan Assessment and Plan (1) Anemia: (more content not included)... Normal [facility] Retic Panelon 03-12-2024 IM RET FRACTION 10.20 Normal 3.00-15.90 [facility] Comment on above: Performed By: #### L 500.4050, L500.4100, L501.9520, L100.0100 #### [facility] [address] [place], [address] RET-HE 33.9 pg Normal 30-35 [facility] Comment on above: Performed By: #### L 500.4050, L500.4100, L501.9520, L100.0100 #### [facility] [address] [place], [address] Retic Count 1.27 Normal 0.5-1.5 [facility] Comment on above: Performed By: #### L 500.4050, L500.4100, L501.9520, L100.0100 #### [facility] [address] [place], [address] Vitamin B12on 03-12-2024 Cobalamin (Vitamin B12) [Mass/Vol] 494 pg/mL Normal 211-911 [facility] Comment on above: Performed By: #### L 500.4050, L500.4100, L501.9520, L100.0100 #### [facility] [address] [place], [address] Basophil percentageOrdered B y: Citlali Lee on 01-08-2024 Chloride [Moles/Vol] 107 mmol/L 98-107 [facility] Glucose [Mass/Vol] 90 mg/dL 74-106 [facility] Potassium [Moles/Vol] 3.8 mmol/L 3.5-5.1 [facility] Sodium [Moles/Vol] 139 mmol/L 136-145 [facility] - Chemistry and C hemistry - challengeOrdered By: Citlali Lee on 01-08-2024 CO2 [Moles/Vol] 28.0 mmol/L 21.0-32.0 [facility] Urea nitrogen/Creatinine [Mass ratio] 12.6 mg/mg 10-20 [facility] No Panel InformationOrdered By: Citlali Lee on 01-08-2024 Estimated GFR (MDRD) Amer 111 mL/min >60 [facility] Comment on above: GFR Calc Estimated GFR (MDRD) Non-Af Amer 91 mL/min >60 [facility] Comment on above: Non- GFR Calc Serum or plasma calcium susan urement (mass/volume)Ordered By: Citlali Lee on 01-08-2024 Calcium [Mass/Vol] 8.6 mg/dL 8.5-10.1 [facility] Serum or plasma creatinine m easurement (mass/volume)Ordered By: Citlali Lee on 01-08-2024 Creatinine [Mass/Vol] 0.71 mg/dL 0.55-1.02 [facility] Comment on above: The validity of the calculated GFR & GFRAA in patients over 70 years has not been determined. Clinical correlation is essential. Serum or plasma urea nitroge n measurement (mass/volume)Ordered By: Citlali Lee on 01-08-2024 Urea nitrogen [Mass/Vol] 9 mg/dL 7-18 [facility] Thin prep Papanicolaou smear with manual screeningOrdered By: Citlali Lee on 01-08-2024 Thin prep Papanicolaou smear with manual screening 4 5-15 [facility] Absolute lymphocyte countOrd ered By: Citlali Lee on 12-25-2023 Lymphocytes Auto (Unsp spec) [#/Vol] 1.52 10*3/uL 0.83-4.51 [facility] Automated lymphocyte count a s percentage of total leukocytesOrdered By: Citlali Lee on 12-25-2023 Lymphocytes/100 WBC Auto (Unsp spec) 31.7 % 19-41 [facility] Basophil percentageOrdered B y: Citlali Lee on 12-25-2023 Basophils/100 WBC (Bld) 0.2 % 0-1 [facility] Bilirubin [Mass/Vol] 0.20 mg/dL 0.20-1.00 [facility] Comment on above: For patients on eltr ombopag therapy, use of Dimension [place] TBIL is not recommended. Chloride [Moles/Vol] 105 mmol/L 98-107 [facility] Cholesterol [Mass/Vol] 193 mg/dL <200 [facility] Comment on above: <200 mg/dL Desirable 200-240 mg/dL Borderline >240 mg/dL High Risk Eosinophils/100 WBC (Bld) 3.3 % 0-5 [facility] Glucose [Mass/Vol] 83 mg/dL 74-106 [facility] Hemoglobin (Bld) [Mass/Vol] 11.1 g/dL 12.0-15.0 [facility] Monocytes/100 WBC (Bld) 9.4 % 0-10 [facility] Neutrophils (Bld) [#/Vol] 2.6 10*3/uL 2.0-7.7 [facility] Neutrophils/100 WBC (Bld) 55.2 % 47-70 [facility] Potassium [Moles/Vol] 3.1 mmol/L 3.5-5.1 [facility] Protein [Mass/Vol] 6.8 g/dL 6.4-8.2 [facility] Sodium [Moles/Vol] 138 mmol/L 136-145 [facility] Triglyceride [Mass/Vol] 65 mg/dL <199 [facility] Comment on above: The drugs N-Acetylcy steine and Metamizole may falsely depress this assay.Serum Triglycerides Reference Interval Normal <150 mg/dL Borderline high 150 - 199 mg/dL High 200 - 499 mg/dL Very High > or = 500 mg/dL WBC (Bld) [#/Vol] 4.8 10*3/uL 4.4-11.0 [facility] Determination of erythrocyte mean corpuscular volume (MCV)Ordered By: Citlali Lee on 12-25-2023 MCV (RBC) [Entitic vol] 91.6 fL 81-99 [facility] Erythrocyte distribution wid th ratioOrdered By: [facility] on 12-25-2023 Erythrocyte distribution width (RBC) [Ratio] 13.5 % 11.6-14.6 [facility] Erythrocyte distribution wid th standard deviationOrdered By: [facility] on 12-25-2023 Erythrocyte distribution width (RBC) [Entitic vol] 45.6 fL 35.1-43.9 [facility] Hematocrit Auto (Bld) [Volum e fraction]Ordered By: [facility] on 12-25-2023 Hematocrit (Bld) [Volume fraction] 34.9 % 37-47 [facility] Immature granulocytes/100 WB C Auto (Bld)Ordered By: [facility] 12-25-2023 Immature granulocytes/100 WBC (Bld) 0.200 % 0.0-0.9 [facility] Comment on above: IG% - Immature Granu locytes (promyelocytes, myelocytes and metamyelocytes) > 1% indicates that a LEFT SHIFT is Present. Laboratory - Chemistry and C hemistry - challengeOrdered By: [facility] 12-25-2023 Albumin/Globulin [Mass ratio] 1.1 {ratio} 0.9-2.4 [facility] ALP [Catalytic activity/Vol] 44 U/L 45-117 [facility] ALT [Catalytic activity/Vol] 15 U/L 13-56 [facility] Cholesterol in HDL [Mass/Vol] 70 mg/dL >40 [facility] Comment on above: The drugs N-Acetylcy steine and Metamizole may falsely depress this assay. Reference Range HDL <40 mg/dL Low HDL Cholesterol HDL >or= 60 mg/dL High HDL Cholesterol Cholesterol in LDL [Mass/Vol] 110 mg/dL 0-130 [facility] CO2 [Moles/Vol] 25.0 mmol/L 21.0-32.0 [facility] Globulin (S) [Mass/Vol] 3.3 g/dL 2.2-4.2 [facility] Urea nitrogen/Creatinine [Mass ratio] 17.9 mg/mg 10-20 [facility] - Hematology and Cell countsOrdered By: [facility] 12-25-2023 MCH (RBC) [Entitic mass] 29.1 pg 27.0-32.0 [facility] MCHC (RBC) [Mass/Vol] 31.8 g/dL 32-36 [facility] Nucleated RBC/100 WBC (Bld) [Ratio] 0 % 0-5 [facility] Platelet mean volume (Bld) [Entitic vol] 10.6 fL 6.2-12.0 [facility] Platelets (Bld) [#/Vol] 276 10*3/uL 150-450 [facility] No Panel InformationOrdered By: Citlali Lee on 12-25-2023 Estimated GFR (MDRD) Amer 99 mL/min >60 [facility] Comment on above: GFR Calc Estimated GFR (MDRD) Non-Af Amer 82 mL/min >60 [facility] Comment on above: Non- GFR Calc VLDL Cholesterol 13 mg/dL 5-40 [facility] RBC Auto (Bld) [#/Vol]Ordere d By: Citlali Lee on 12-25-2023 RBC (Bld) [#/Vol] 3.81 10*6/uL 4.2-5.4 [facility] Serum or plasma calcium susan urement (mass/volume)Ordered By: Citlali Lee on 12-25-2023 Calcium [Mass/Vol] 8.7 mg/dL 8.5-10.1 [facility] Serum or plasma creatinine m easurement (mass/volume)Ordered By: Citlali Lee on 12-25-2023 Creatinine [Mass/Vol] 0.78 mg/dL 0.55-1.02 [facility] Comment on above: The validity of the calculated GFR & GFRAA in patients over 70 years has not been determined. Clinical correlation is essential. Serum or plasma thyroid stim ulating hormone (TSH) measurement (units/volume)Ordered By: Citlali Lee on 12-25-2023 TSH Qn 2.14 uIU/mL 0.358-3.74 [facility] Serum or plasma urea nitroge n measurement (mass/volume)Ordered By: Citlali Lee on 12-25-2023 Urea nitrogen [Mass/Vol] 14 mg/dL 7-18 [facility] Thin prep Papanicolaou smear with manual screeningOrdered By: Citlali Lee 12-25-2023 Thin prep Papanicolaou smear with manual screening 3.5 g/dL 3.2-5.0 [facility] Thin prep Papanicolaou smear with manual screening 17 U/L 15-37 [facility] Thin prep Papanicolaou smear with manual screening 8 - [facility] Basophil percentageOrdered B y: Citlali Lee on 12-14-2023 Chloride [Moles/Vol] 107 mmol/L 98-107 [facility] Glucose [Mass/Vol] 89 mg/dL 74-106 [facility] Potassium [Moles/Vol] 3.7 mmol/L 3.5-5.1 [facility] Sodium [Moles/Vol] 139 mmol/L 136-145 [facility] - Chemistry and C hemistry - challengeOrdered By: Citlali Lee on 12-14-2023 CO2 [Moles/Vol] 27.0 mmol/L 21.0-32.0 [facility] Urea nitrogen/Creatinine [Mass ratio] 12.3 mg/mg 10-20 [facility] No Panel InformationOrdered By: Citlali Lee on 12-14-2023 Estimated GFR (MDRD) Amer 107 mL/min >60 [facility] Comment on above: GFR Calc Estimated GFR (MDRD) Non-Af Amer 88 mL/min >60 [facility] Comment on above: Non- GFR Calc Serum or plasma calcium susan urement (mass/volume)Ordered By: Citlali Lee on 12-14-2023 Calcium [Mass/Vol] 8.9 mg/dL 8.5-10.1 [facility] Serum or plasma creatinine m easurement (mass/volume)Ordered By: Citlali Lee on 12-14-2023 Creatinine [Mass/Vol] 0.73 mg/dL 0.55-1.02 [facility] Comment on above: The validity of the calculated GFR & GFRAA in patients over 70 years has not been determined. Clinical correlation is essential. Serum or plasma urea nitroge n measurement (mass/volume)Ordered By: Citlali Lee on 12-14-2023 Urea nitrogen [Mass/Vol] 9 mg/dL 7-18 [facility] Thin prep Papanicolaou smear with manual screeningOrdered By: Citlali Lee 12-14-2023 Thin prep Papanicolaou smear with manual screening 5 -15 [facility] Basophil percentageOrdered B y: Citlali Lee on 12-06-2023 Chloride [Moles/Vol] 104 mmol/L 98-107 [facility] Glucose [Mass/Vol] 79 mg/dL 74-106 [facility] Potassium [Moles/Vol] 3.3 mmol/L 3.5-5.1 [facility] Sodium [Moles/Vol] 140 mmol/L 136-145 [facility] - Chemistry and C hemistry - challengeOrdered By: Citlali Lee on 12-06-2023 CO2 [Moles/Vol] 29.0 mmol/L 21.0-32.0 [facility] Urea nitrogen/Creatinine [Mass ratio] 14.3 mg/mg 10-20 [facility] No Panel InformationOrdered By: Citlali Lee on 12-06-2023 Estimated GFR (MDRD) Amer 114 mL/min >60 [facility] Comment on above: GFR Calc Estimated GFR (MDRD) Non-Af Amer 94 mL/min >60 [facility] Comment on above: Non- GFR Calc Serum or plasma calcium susan urement (mass/volume)Ordered By: Citlali Lee on 12-06-2023 Calcium [Mass/Vol] 9.0 mg/dL 8.5-10.1 [facility] Serum or plasma creatinine m easurement (mass/volume)Ordered By: Citlali Lee on 12-06-2023 Creatinine [Mass/Vol] 0.70 mg/dL 0.55-1.02 [facility] Comment on above: The validity of the calculated GFR & GFRAA in patients over 70 years has not been determined. Clinical correlation is essential. Serum or plasma urea nitroge n measurement (mass/volume)Ordered By: Citlali Lee on 12-06-2023 Urea nitrogen [Mass/Vol] 10 mg/dL 7-18 [facility] Thin prep Papanicolaou smear with manual screeningOrdered By: Citlali Lee on 12-06-2023 Thin prep Papanicolaou smear with manual screening 7 - [facility] Basophil percentageOrdered B y: Citlali Lee on 11-21-2023 Chloride [Moles/Vol] 106 mmol/L 98-107 [facility] Glucose [Mass/Vol] 84 mg/dL 74-106 [facility] Potassium [Moles/Vol] 3.9 mmol/L 3.5-5.1 [facility] Sodium [Moles/Vol] 138 mmol/L 136-145 [facility] Laboratory - Chemistry and C hemistry - challengeOrdered By: Citlali Lee on 11-21-2023 CO2 [Moles/Vol] 30.0 mmol/L 21.0-32.0 [facility] Urea nitrogen/Creatinine [Mass ratio] 13.6 mg/mg 10-20 [facility] No Panel InformationOrdered By: Citlali Lee on 11-21-2023 Estimated GFR (MDRD) Amer 121 mL/min >60 [facility] Comment on above: GFR Calc Estimated GFR (MDRD) Non-Af Amer 100 mL/min >60 [facility] Comment on above: Non- GFR Calc Serum or plasma calcium susan urement (mass/volume)Ordered By: Citlali Lee on 11-21-2023 Calcium [Mass/Vol] 8.8 mg/dL 8.5-10.1 [facility] Serum or plasma creatinine m easurement (mass/volume)Ordered By: Citlali Lee on 11-21-2023 Creatinine [Mass/Vol] 0.66 mg/dL 0.55-1.02 [facility] Comment on above: The validity of the calculated GFR & GFRAA in patients over 70 years has not been determined. Clinical correlation is essential. Serum or plasma urea nitroge n measurement (mass/volume)Ordered By: Citlali Lee on 11-21-2023 Urea nitrogen [Mass/Vol] 9 mg/dL 7-18 [facility] Thin prep Papanicolaou smear with manual screeningOrdered By: Citlali Lee on 11-21-2023 Thin prep Papanicolaou smear with manual screening 2 5-15 [facility] Absolute lymphocyte countOrd ered By: Citlali Lee on 11-12-2023 Lymphocytes Auto (Unsp spec) [#/Vol] 0.98 10*3/uL 0.83-4.51 [facility] Automated lymphocyte count a s percentage of total leukocytesOrdered By: Citlali Lee on 11-12-2023 Lymphocytes/100 WBC Auto (Unsp spec) 30.5 % 19-41 [facility] Basophil percentageOrdered B y: Citlali Lee on 11-12-2023 Basophils/100 WBC (Bld) 0.3 % 0-1 [facility] Bilirubin [Mass/Vol] 0.20 mg/dL 0.20-1.00 [facility] Comment on above: For patients on eltr ombopag therapy, use of Dimension [place] TBIL is not recommended. Chloride [Moles/Vol] 109 mmol/L 98-107 [facility] Eosinophils/100 WBC (Bld) 4.0 % 0-5 [facility] Glucose [Mass/Vol] 98 mg/dL 74-106 [facility] Hemoglobin (Bld) [Mass/Vol] 12.5 g/dL 12.0-15.0 [facility] Monocytes/100 WBC (Bld) 12.5 % 0-10 [facility] Neutrophils (Bld) [#/Vol] 1.7 10*3/uL 2.0-7.7 [facility] Neutrophils/100 WBC (Bld) 52.4 % 47-70 [facility] Potassium [Moles/Vol] 2.8 mmol/L 3.5-5.1 [facility] Protein [Mass/Vol] 7.6 g/dL 6.4-8.2 [facility] Sodium [Moles/Vol] 141 mmol/L 136-145 [facility] WBC (Bld) [#/Vol] 3.2 10*3/uL 4.4-11.0 [facility] Culture, urineOrdered By: Filemon Lee on 11-12-2023 Bacteria identified Cx Nom (U) Culture exhibits no growth. [facility] Bacteria identified Cx Nom (U) Culture exhibits no growth. [facility] Determination of erythrocyte mean corpuscular volume (MCV)Ordered By: Citlali Lee on 11-12-2023 MCV (RBC) [Entitic vol] 93.6 fL 81-99 [facility] Erythrocyte distribution wid th ratioOrdered By: Citlali Lee on 11-12-2023 Erythrocyte distribution width (RBC) [Ratio] 14.1 % 11.6-14.6 [facility] Erythrocyte distribution wid th standard deviationOrdered By: Citlali Lee on 11-12-2023 Erythrocyte distribution width (RBC) [Entitic vol] 48.1 fL 35.1-43.9 [facility] Hematocrit Auto (Bld) [Volum e fraction]Ordered By: Citlali Lee on 11-12-2023 Hematocrit (Bld) [Volume fraction] 39.2 % 37-47 [facility] Immature granulocytes/100 WB C Auto (Bld)Ordered By: Citlali Lee on 11-12-2023 Immature granulocytes/100 WBC (Bld) 0.300 % 0.0-0.9 [facility] Comment on above: IG% - Immature Granu locytes (promyelocytes, myelocytes and metamyelocytes) > 1% indicates that a LEFT SHIFT is Present. Laboratory - Chemistry and C hemistry - challengeOrdered By: Citlali Lee on 11-12-2023 Albumin/Globulin [Mass ratio] 1.0 {ratio} 0.9-2.4 [facility] ALP [Catalytic activity/Vol] 55 U/L 45-117 [facility] ALT [Catalytic activity/Vol] 26 U/L 13-56 [facility] CO2 [Moles/Vol] 26.0 mmol/L 21.0-32.0 [facility] Globulin (S) [Mass/Vol] 3.8 g/dL 2.2-4.2 [facility] Urea nitrogen/Creatinine [Mass ratio] 18.1 mg/mg 10-20 [facility] Laboratory - Hematology and Cell countsOrdered By: Citlali Lee on 11-12-2023 MCH (RBC) [Entitic mass] 29.8 pg 27.0-32.0 [facility] MCHC (RBC) [Mass/Vol] 31.9 g/dL 32-36 [facility] Nucleated RBC/100 WBC (Bld) [Ratio] 0 % 0-5 [facility] Platelet mean volume (Bld) [Entitic vol] 10.6 fL 6.2-12.0 [facility] Platelets (Bld) [#/Vol] 297 10*3/uL 150-450 [facility] No Panel InformationOrdered By: Citlali Lee on 11-12-2023 Estimated GFR (MDRD) Amer 120 mL/min >60 [facility] Comment on above: GFR Calc Estimated GFR (MDRD) Non-Af Amer 99 mL/min >60 [facility] Comment on above: Non- GFR Calc RBC Auto (Bld) [#/Vol]Ordere d By: Citlali Lee on 11-12-2023 RBC (Bld) [#/Vol] 4.19 10*6/uL 4.2-5.4 [facility] Serum or plasma calcium susan urement (mass/volume)Ordered By: Citlali Lee on 11-12-2023 Calcium [Mass/Vol] 8.8 mg/dL 8.5-10.1 [facility] Serum or plasma creatinine m easurement (mass/volume)Ordered By: Citlali Lee on 11-12-2023 Creatinine [Mass/Vol] 0.66 mg/dL 0.55-1.02 [facility] Comment on above: The validity of the calculated GFR & GFRAA in patients over 70 years has not been determined. Clinical correlation is essential. Serum or plasma urea nitroge n measurement (mass/volume)Ordered By: Citlali Lee on 11-12-2023 Urea nitrogen [Mass/Vol] 12 mg/dL 7-18 [facility] Thin prep Papanicolaou smear with manual screeningOrdered By: Citlali Lee on 11-12-2023 Thin prep Papanicolaou smear with manual screening 3.8 g/dL 3.2-5.0 [facility] Thin prep Papanicolaou smear with manual screening 23 U/L 15-37 [facility] Thin prep Papanicolaou smear with manual screening 6 5-15 [facility] Absolute lymphocyte countOrd ered By: Rukhsana Bob on 09-12-2023 Lymphocytes Auto (Unsp spec) [#/Vol] 1.39 10*3/uL 0.83-4.51 [facility] Basophil percentageOrdered B y: Rukhsana Bob on 09-12-2023 Basophils/100 WBC (Bld) 0.4 % 0-1 [facility] Eosinophils/100 WBC (Bld) 3.3 % 0-5 [facility] Neutrophils (Bld) [#/Vol] 3.5 10*3/uL 2.0-7.7 [facility] Neutrophils/100 WBC (Bld) 63.5 % 47-70 [facility] WBC (Bld) [#/Vol] 5.4 10*3/uL 4.4-11.0 [facility] Blood erythrocytes count (nu mber/volume)Ordered By: Rukhsana Bob on 09-12-2023 RBC (Bld) [#/Vol] 3.73 10*6/uL 4.2-5.4 [facility] Blood hemoglobin measurement (mass/volume)Ordered By: Rukhsana Bob on 09-12-2023 Hemoglobin (Bld) [Mass/Vol] 11.0 g/dL 12.0-15.0 [facility] Blood lymphocytes/100 leukoc ytesOrdered By: [facility] Lymphocytes/100 WBC (Bld) 25.6 % 19-41 [facility] Blood monocytes/100 leukocyt esOrdered By: [facility] on 09-[facility]23 Monocytes/100 WBC (Bld) 7.0 % 0-10 [facility] Blood platelet mean volumeOr dered By: Rukhsana Bob on 09-12-2023 Platelet mean volume (Bld) [Entitic vol] 10.0 fL 6.2-12.0 [facility] Determination of erythrocyte mean corpuscular volume (MCV)Ordered By: Rukhsana Bob on 09-12-2023 MCV (RBC) [Entitic vol] 93.8 fL 81-99 [facility] Hematocrit Auto (Bld) [Volum e fraction]Ordered By: Rukhsana Bob on 09-12-2023 Hematocrit (Bld) [Volume fraction] 35.0 % 37-47 [facility] Hemoglobin in reticulocytes (mass per reticulocyte)Ordered By: Rukhsana Bob on 09-12-2023 Hemoglobin (Reticulocytes) [Entitic mass] 33.1 pg 30-35 [facility] Iron measurement (mass/mass) Ordered By: Rukhsana Bob on 09-12-2023 Iron (Unsp spec) [Mass/Mass] 49 ug/dL 50-170 [facility] Laboratory - Hematology and Cell countsOrdered By: Rukhsana Bob on 09-12-2023 Erythrocyte distribution width (RBC) [Entitic vol] 49.9 fL 35.1-43.9 [facility] Erythrocyte distribution width (RBC) [Ratio] 14.5 % 11.6-14.6 [facility] Immature granulocytes/100 WBC (Bld) 0.200 % 0.0-0.9 [facility] Comment on above: IG% - Immature Granu locytes (promyelocytes, myelocytes and metamyelocytes) > 1% indicates that a LEFT SHIFT is Present. MCH (RBC) [Entitic mass] 29.5 pg 27.0-32.0 [facility] Nucleated RBC/100 WBC (Bld) [Ratio] 0 % 0-5 [facility] MCHC Auto (RBC) [Mass/Vol]Or dered By: Rukhsana Bob on 09-12-2023 MCHC (RBC) [Mass/Vol] 31.4 g/dL 32-36 [facility] No Panel InformationOrdered By: Rukhsana Bob on 09-12-2023 Immature Reticulocyte Fraction 13.40 % 3.00-15.90 [facility] Reticulocyte Count 1.35 % 0.5-1.5 [facility] Total Iron Binding Capacity 340 ug/dL 250-450 [facility] Platelets bldOrdered By: Franck Bob on 09-12-2023 Platelets (Bld) [#/Vol] 298 10*3/uL 150-450 [facility] Serum or plasma ferritin kate surement (mass/volume)Ordered By: Rukhsana Bob on 09-12-2023 Ferritin [Mass/Vol] 6 ng/mL 8-252 [facility] Serum or plasma iron saturat ion measurement (mass fraction)Ordered By: Rukhsana Bob on 09-12-2023 Iron saturation [Mass fraction] 14.4 % 15.0-55.0 [facility] Basophil percentageOrdered B y: Citlali Lee on 06-29-2023 Chloride [Moles/Vol] 105 mmol/L 98-107 [facility] Glucose [Mass/Vol] 80 mg/dL 74-106 [facility] Potassium [Moles/Vol] 3.9 mmol/L 3.5-5.1 [facility] Sodium [Moles/Vol] 135 mmol/L 136-145 [facility] Laboratory - Chemistry and C hemistry - challengeOrdered By: Citlali Lee on 06-29-2023 CO2 [Moles/Vol] 28.0 mmol/L 21.0-32.0 [facility] Urea nitrogen/Creatinine [Mass ratio] 17.9 mg/mg 10-20 [facility] No Panel InformationOrdered By: Citlali Lee on 06-29-2023 Estimated GFR (MDRD) Amer 132 mL/min >60 [facility] Comment on above: GFR Calc Estimated GFR (MDRD) Non-Af Amer 109 mL/min >60 [facility] Comment on above: Non- GFR Calc Serum or plasma calcium susan urement (mass/volume)Ordered By: Citlali Lee on 06-29-2023 Calcium [Mass/Vol] 8.3 mg/dL 8.5-10.1 [facility] Serum or plasma creatinine m easurement (mass/volume)Ordered By: Citlali Lee on 06-29-2023 Creatinine [Mass/Vol] 0.61 mg/dL 0.55-1.02 [facility] Comment on above: The validity of the calculated GFR & GFRAA in patients over 70 years has not been determined. Clinical correlation is essential. Serum or plasma urea nitroge n measurement (mass/volume)Ordered By: Citlali Lee on 06-29-2023 Urea nitrogen [Mass/Vol] 11 mg/dL 7-18 [facility] Thin prep Papanicolaou smear with manual screeningOrdered By: Citlali Lee on 06-29-2023 Thin prep Papanicolaou smear with manual screening 2 5-15 [facility] Absolute lymphocyte countOrd ered By: Citlali Lee on 06-19-2023 Lymphocytes Auto (Unsp spec) [#/Vol] 1.16 10*3/uL 0.83-4.51 [facility] Basophil percentageOrdered B y: Citlali Lee on 06-19-2023 Basophils/100 WBC (Bld) 0.4 % 0-1 [facility] Bilirubin [Mass/Vol] 0.20 mg/dL 0.20-1.00 [facility] Comment on above: For patients on eltr ombopag therapy, use of Dimension [place] TBIL is not recommended. Chloride [Moles/Vol] 106 mmol/L 98-107 [facility] Cholesterol [Mass/Vol] 189 mg/dL <200 [facility] Comment on above: <200 mg/dL Desirable 200-240 mg/dL Borderline >240 mg/dL High Risk Eosinophils/100 WBC (Bld) 2.2 % 0-5 [facility] Glucose [Mass/Vol] 81 mg/dL 74-106 [facility] Neutrophils (Bld) [#/Vol] 3.0 10*3/uL 2.0-7.7 [facility] Neutrophils/100 WBC (Bld) 64.7 % 47-70 [facility] Potassium [Moles/Vol] 3.4 mmol/L 3.5-5.1 [facility] Protein [Mass/Vol] 6.8 g/dL 6.4-8.2 [facility] Sodium [Moles/Vol] 138 mmol/L 136-145 [facility] Triglyceride [Mass/Vol] 42 mg/dL <199 [facility] Comment on above: The drugs N-Acetylcy steine and Metamizole may falsely depress this assay.Serum Triglycerides Reference Interval Normal <150 mg/dL Borderline high 150 - 199 mg/dL High 200 - 499 mg/dL Very High > or = 500 mg/dL WBC (Bld) [#/Vol] 4.6 10*3/uL 4.4-11.0 [facility] Blood erythrocytes count (nu mber/volume)Ordered By: Citlali Lee on 06-19-2023 RBC (Bld) [#/Vol] 3.79 10*6/uL 4.2-5.4 [facility] Blood hemoglobin measurement (mass/volume)Ordered By: Citlali Lee on 06-19-2023 Hemoglobin (Bld) [Mass/Vol] 11.8 g/dL 12.0-15.0 [facility] Blood lymphocytes/100 leukoc ytesOrdered By: Citlali Lee on 06-19-2023 Lymphocytes/100 WBC (Bld) 25.1 % 19-41 [facility] Blood monocytes/100 leukocyt esOrdered By: Citlali Lee on 06-19-2023 Monocytes/100 WBC (Bld) 7.4 % 0-10 [facility] Blood platelet mean volumeOr dered By: Citlali Lee on 06-19-2023 Platelet mean volume (Bld) [Entitic vol] 10.5 fL 6.2-12.0 [facility] Determination of erythrocyte mean corpuscular volume (MCV)Ordered By: Citlali Lee on 06-19-2023 MCV (RBC) [Entitic vol] 96.8 fL 81-99 [facility] Hematocrit Auto (Bld) [Volum e fraction]Or[facility] 06-19-[facility]23 Hematocrit (Bld) [Volume fraction] 36.7 % 37-47 [facility] Laboratory - Chemistry and C hemistry - challengeOrdered By: [facility] on 06-19-2023 ALP [Catalytic activity/Vol] 39 U/L 45-117 [facility] ALT [Catalytic activity/Vol] 16 U/L 13-56 [facility] CO2 [Moles/Vol] 28.0 mmol/L 21.0-32.0 [facility] Globulin (S) [Mass/Vol] 3.5 g/dL 2.2-4.2 [facility] Urea nitrogen/Creatinine [Mass ratio] 14.1 mg/mg 10-20 [facility] Laboratory - Hematology and Cell countsOrdered By: [facility] 06-19-2023 Erythrocyte distribution width (RBC) [Entitic vol] 49.5 fL 35.1-43.9 [facility] Erythrocyte distribution width (RBC) [Ratio] 13.9 % 11.6-14.6 [facility] Immature granulocytes/100 WBC (Bld) 0.200 % 0.0-0.9 [facility] Comment on above: IG% - Immature Granu locytes (promyelocytes, myelocytes and metamyelocytes) > 1% indicates that a LEFT SHIFT is Present. MCH (RBC) [Entitic mass] 31.1 pg 27.0-32.0 [facility] Nucleated RBC/100 WBC (Bld) [Ratio] 0 % 0-5 [facility] MCHC Auto (RBC) [Mass/Vol]Or dered By: Citlali Lico on 06-19-2023 MCHC (RBC) [Mass/Vol] 32.2 g/dL 32-36 [facility] No Panel InformationOrdered By: [facility] on 06-19-2023 Estimated GFR (MDRD) Amer 126 mL/min >60 [facility] Comment on above: GFR Calc Estimated GFR (MDRD) Non-Af Amer 104 mL/min >60 [facility] Comment on above: Non- GFR Calc Thyroid Stimulating Hormone (TSH) 2.04 uIU/mL 0.358-3.74 [facility] Platelets bldOrdered By: Citlali Lee on 06-19-2023 Platelets (Bld) [#/Vol] 303 10*3/uL 150-450 [facility] Serum or plasma albumin susan urement (mass/volume)Ordered By: Citlali Lee on 06-19-2023 Albumin [Mass/Vol] 3.3 g/dL 3.2-5.0 [facility] Serum or plasma albumin/glob ulin mass ratioOrdered By: Citlali Lee 06-19-2023 Albumin/Globulin [Mass ratio] 0.9 {ratio} 0.9-2.4 [facility] Serum or plasma calcium susan urement (mass/volume)Ordered By: Citlali Lee 06-19-2023 Calcium [Mass/Vol] 8.3 mg/dL 8.5-10.1 [facility] Serum or plasma cholesterol in HDL measurement (mass/volume)Ordered By: Citlali Lee 06-19-2023 Cholesterol in HDL [Mass/Vol] 73 mg/dL >40 [facility] Comment on above: The drugs N-Acetylcy steine and Metamizole may falsely depress this assay. Reference Range HDL <40 mg/dL Low HDL Cholesterol HDL >or= 60 mg/dL High HDL Cholesterol Serum or plasma cholesterol in VLDL measurement (mass/volume)Ordered By: Citlali Lee 06-19-2023 Cholesterol in VLDL [Mass/Vol] 8 mg/dL 5-40 [facility] Serum or plasma creatinine m easurement (mass/volume)Ordered By: Citlali Lee 06-19-2023 Creatinine [Mass/Vol] 0.64 mg/dL 0.55-1.02 [facility] Comment on above: The validity of the calculated GFR & GFRAA in patients over 70 years has not been determined. Clinical correlation is essential. Serum or plasma low density lipoprotein (LDL) cholesterol measurement (mass/volume)Ordered By: Citlali eLe 06-19-2023 Cholesterol in LDL [Mass/Vol] 108 mg/dL 0-130 [facility] Serum or plasma urea nitroge n measurement (mass/volume)Ordered By: Citlali Lee on 06-19-2023 Urea nitrogen [Mass/Vol] 9 mg/dL 7-18 [facility] Thin prep Papanicolaou smear with manual screeningOrdered By: Citlali Lee on 06-19-2023 Thin prep Papanicolaou smear with manual screening 10 U/L 15-37 [facility] Thin prep Papanicolaou smear with manual screening 4 5-15 [facility] Color of specimen determinat ionOrdered By: Citlali Lee on 06-06-2023 Color (Unsp spec) Not Reportable [facility] Culture, urineOrdered By: Filemon Lee on 06-06-2023 Bacteria identified Cx Nom (U) Positive [facility] Measurement of weight of sto neOrdered By: Citlali Lee on 06-06-2023 Weight (Stone) Not Reportable [facility] Origin of StoneOrdered By: Hank Lee on 06-06-2023 Origin Nom (Stone) See comment [facility] Comment on above: TEST RESULT LIMITSSt one Analysis Source Not provided Color Anderson Size 2x2 mm Single piece received. Weight 2 mg Composition Percentage (Represents the % composition) Calcium phosphate (hydroxyl) 100 % Comment Calcium phosphate (hydroxyl form) includes hydroxyapatite,amorphous calcium phosphate, and whitlockite. Hydroxyapatite is the most common of the calcium phosphate salts found in human kidney stones. Photo Photograph will follow under a separate cover Comment: Physician questions regarding Calculi Analysis contact [facility] at: [phone]. Please note: Calculi report will follow via computer, mail or set off press operator delivery. Disclaimer: This test was developed and its performance characteristics determined by [employer]. It has not been cleared or approved by the Food and Drug Administration. TESTING PERFORMED AT [facility]. ORIGINAL REPORT ON FILE IN LAB CONTAINS ADDITIONAL TEST SITE INFORMATION. Size of stoneOrdered By: Citlali Lee on 06-06-2023 Size (Stone) [Entitic vol] Not Reportable [facility] Absolute lymphocyte countOrd ered By: Rukhsana Bob on 03-21-2023 Lymphocytes Auto (Unsp spec) [#/Vol] 1.67 10*3/uL 0.83-4.51 [facility] Basophil percentageOrdered B y: Rukhsana Bob on 03-21-2023 Basophils/100 WBC (Bld) 0.1 % 0-1 [facility] Chloride [Moles/Vol] 104 mmol/L 98-107 [facility] Eosinophils/100 WBC (Bld) 4.7 % 0-5 [facility] Glucose [Mass/Vol] 84 mg/dL 74-106 [facility] Neutrophils (Bld) [#/Vol] 4.7 10*3/uL 2.0-7.7 [facility] Neutrophils/100 WBC (Bld) 65.0 % 47-70 [facility] Potassium [Moles/Vol] 3.6 mmol/L 3.5-5.1 [facility] Sodium [Moles/Vol] 137 mmol/L 136-145 [facility] WBC (Bld) [#/Vol] 7.2 10*3/uL 4.4-11.0 [facility] Blood erythrocytes count (nu mber/volume)Ordered By: Rukhsana Bob on 03-21-2023 RBC (Bld) [#/Vol] 4.24 10*6/uL 4.2-5.4 [facility] Blood hemoglobin measurement (mass/volume)Ordered By: Rukhsana Bob on 03-21-2023 Hemoglobin (Bld) [Mass/Vol] 12.8 g/dL 12.0-15.0 [facility] Blood lymphocytes/100 leukoc ytesOrdered By: Rukhsana Bob on 03-21-2023 Lymphocytes/100 WBC (Bld) 23.1 % 19-41 [facility] Blood monocytes/100 leukocyt esOrdered By: Rukhsana Bob on 03-21-2023 Monocytes/100 WBC (Bld) 6.8 % 0-10 [facility] Blood platelet mean volumeOr dered By: [facility]23 Platelet mean volume (Bld) [Entitic vol] 10.6 fL 6.2-12.0 [facility] Determination of erythrocyte mean corpuscular volume (MCV)Ordered By: [facility] on 03-21-2023 MCV (RBC) [Entitic vol] 93.9 fL 81-99 [facility] Hematocrit Auto (Bld) [Volum e fraction]Ordered By: [facility] on 03-21-2023 Hematocrit (Bld) [Volume fraction] 39.8 % 37-47 [facility] Hemoglobin in reticulocytes (mass per reticulocyte)Ordered By: [facility] on 03-21-2023 Hemoglobin (Reticulocytes) [Entitic mass] 34.5 pg 30-35 [facility] Iron measurement (mass/mass) Ordered By: [facility] on 03-21-2023 Iron (Unsp spec) [Mass/Mass] 79 ug/dL 50-170 [facility] Laboratory - Chemistry and C hemistry - challengeOrdered By: [facility] on 03-21-2023 CO2 [Moles/Vol] 24.0 mmol/L 21.0-32.0 [facility] Magnesium [Mass/Vol] 2.1 mg/dL 1.6-2.6 [facility] Urea nitrogen/Creatinine [Mass ratio] 21.9 mg/mg 10-20 [facility] Laboratory - Hematology and Cell countsOrdered By: [facility] on 03-21-2023 Erythrocyte distribution width (RBC) [Entitic vol] 53.5 fL 35.1-43.9 [facility] Erythrocyte distribution width (RBC) [Ratio] 15.4 % 11.6-14.6 [facility] Immature granulocytes/100 WBC (Bld) 0.300 % 0.0-0.9 [facility] Comment on above: IG% - Immature Granu locytes (promyelocytes, myelocytes and metamyelocytes) > 1% indicates that a LEFT SHIFT is Present. MCH (RBC) [Entitic mass] 30.2 pg 27.0-32.0 [facility] Nucleated RBC/100 WBC (Bld) [Ratio] 0 % 0-5 [facility] MCHC Auto (RBC) [Mass/Vol]Or dered By: Rukhsana Bob on 03-21-2023 MCHC (RBC) [Mass/Vol] 32.2 g/dL 32-36 [facility] No Panel InformationOrdered By: Rukhsana Bob on 03-21-2023 Estimated GFR (MDRD) Amer 108 mL/min >60 [facility] Estimated GFR (MDRD) Non-Af Amer 89 mL/min >60 [facility] Immature Reticulocyte Fraction 11.70 % 3.00-15.90 [facility] Reticulocyte Count 0.88 % 0.5-1.5 [facility] Total Iron Binding Capacity 373 ug/dL 250-450 [facility] Platelets bldOrdered By: Franck Bob on 03-21-2023 Platelets (Bld) [#/Vol] 313 10*3/uL 150-450 [facility] Serum or plasma calcium susan urement (mass/volume)Ordered By: Rukhsana Bob on 03-21-2023 Calcium [Mass/Vol] 9.3 mg/dL 8.5-10.1 [facility] Serum or plasma creatinine m easurement (mass/volume)Ordered By: Rukhsana Bob on 03-21-2023 Creatinine [Mass/Vol] 0.73 mg/dL 0.55-1.02 [facility] Comment on above: The validity of the calculated GFR & GFRAA in patients over 70 years has not been determined. Clinical correlation is essential. Serum or plasma ferritin kate surement (mass/volume)Ordered By: Rukhsana Bob on 03-21-2023 Ferritin [Mass/Vol] 8 ng/mL 8-252 [facility] Serum or plasma iron saturat ion measurement (mass fraction)Ordered By: Rukhsana Bob on 03-21-2023 Iron saturation [Mass fraction] 21.2 % 15.0-55.0 [facility] Serum or plasma urea nitroge n measurement (mass/volume)Ordered By: Rukhsana Bob on 03-21-2023 Urea nitrogen [Mass/Vol] 16 mg/dL 7-18 [facility] Thin prep Papanicolaou smear with manual screeningOrdered By: Rukhsana Bob on 03-21-2023 Thin prep Papanicolaou smear with manual screening 9 5-15 [facility] Absolute lymphocyte countOrd ered By: Dr. Bob on 02-21-2023 Lymphocytes Auto (Unsp spec) [#/Vol] 1.13 10*3/uL 0.83-4.51 [facility] Basophil percentageOrdered B y: Dr. Bob on 02-21-2023 Basophils/100 WBC (Bld) 0.3 % 0-1 [facility] Eosinophils/100 WBC (Bld) 3.3 % 0-5 [facility] Neutrophils (Bld) [#/Vol] 4.3 10*3/uL 2.0-7.7 [facility] Neutrophils/100 WBC (Bld) 71.0 % 47-70 [facility] WBC (Bld) [#/Vol] 6.1 10*3/uL 4.4-11.0 [facility] Basophil percentageOrdered B y: Dr. Lee on 02-21-2023 Chloride [Moles/Vol] 108 mmol/L 98-107 [facility] Glucose [Mass/Vol] 89 mg/dL 74-106 [facility] Potassium [Moles/Vol] 3.6 mmol/L 3.5-5.1 [facility] Sodium [Moles/Vol] 139 mmol/L 136-145 [facility] Blood erythrocytes count (nu mber/volume)Ordered By: Dr. Bob on 02-21-2023 RBC (Bld) [#/Vol] 3.98 10*6/uL 4.2-5.4 [facility] Blood hemoglobin measurement (mass/volume)Ordered By: Dr. Bob on 02-21-2023 Hemoglobin (Bld) [Mass/Vol] 11.8 g/dL 12.0-15.0 [facility] Blood lymphocytes/100 leukoc ytesOrdered By: Dr. Bob on 02-21-2023 Lymphocytes/100 WBC (Bld) 18.7 % 19-41 [facility] Blood monocytes/100 leukocyt esOrdered By: Dr. Bob on 02-21-2023 Monocytes/100 WBC (Bld) 6.4 % 0-10 [facility] Blood platelet mean volumeOr dered By: Dr. Bob on 02-21-2023 Platelet mean volume (Bld) [Entitic vol] 10.3 fL 6.2-12.0 [facility] Determination of erythrocyte mean corpuscular volume (MCV)Ordered By: Dr. Bob on 02-21-2023 MCV (RBC) [Entitic vol] 95.2 fL 81-99 [facility] Hematocrit Auto (Bld) [Volum e fraction]Ordered By: Dr. Bob on 02-21-2023 Hematocrit (Bld) [Volume fraction] 37.9 % 37-47 [facility] Hemoglobin in reticulocytes (mass per reticulocyte)Ordered By: Dr. Bob on 02-21-2023 Hemoglobin (Reticulocytes) [Entitic mass] 35.2 pg 30-35 [facility] Iron measurement (mass/mass) Ordered By: Dr. Bob on 02-21-2023 Iron (Unsp spec) [Mass/Mass] 31 ug/dL 50-170 [facility] Laboratory - Chemistry and C hemistry - challengeOrdered By: Dr. Bob on 02-21-2023 Cobalamin (Vitamin B12) [Mass/Vol] 428 pg/mL 211-911 [facility] Laboratory - Chemistry and C hemistry - challengeOrdered By: Dr. Lee on 02-21-2023 CO2 [Moles/Vol] 21.0 mmol/L 21.0-32.0 [facility] Magnesium [Mass/Vol] 1.8 mg/dL 1.6-2.6 [facility] Urea nitrogen/Creatinine [Mass ratio] 22.8 mg/mg 10-20 [facility] Laboratory - Hematology and Cell countsOrdered By: Dr. Bob on 02-21-2023 Erythrocyte distribution width (RBC) [Entitic vol] 62.3 fL 35.1-43.9 [facility] Erythrocyte distribution width (RBC) [Ratio] 17.9 % 11.6-14.6 [facility] Immature granulocytes/100 WBC (Bld) 0.300 % 0.0-0.9 [facility] Comment on above: IG% - Immature Granu locytes (promyelocytes, myelocytes and metamyelocytes) > 1% indicates that a LEFT SHIFT is Present. MCH (RBC) [Entitic mass] 29.6 pg 27.0-32.0 [facility] Nucleated RBC/100 WBC (Bld) [Ratio] 0 % 0-5 [facility] MCHC Auto (RBC) [Mass/Vol]Or dered By: Dr. Bob on 02-21-2023 MCHC (RBC) [Mass/Vol] 31.1 g/dL 32-36 [facility] No Panel InformationOrdered By: Dr. Bob on 02-21-2023 Immature Reticulocyte Fraction 11.70 % 3.00-15.90 [facility] Reticulocyte Count 1.33 % 0.5-1.5 [facility] Total Iron Binding Capacity 360 ug/dL 250-450 [facility] No Panel InformationOrdered By: Dr. Lee on 02-21-2023 Estimated GFR (MDRD) Amer 132 mL/min >60 [facility] Comment on above: GFR Calc Estimated GFR (MDRD) Non-Af Amer 109 mL/min >60 [facility] Comment on above: Non- GFR Calc Platelets bldOrdered By: Dr. Bob on 02-21-2023 Platelets (Bld) [#/Vol] 291 10*3/uL 150-450 [facility] Serum or plasma calcium susan urement (mass/volume)Ordered By: Dr. Lee on 02-21-2023 Calcium [Mass/Vol] 9.1 mg/dL 8.5-10.1 [facility] Serum or plasma creatinine m easurement (mass/volume)Ordered By: Dr. Lee on 02-21-2023 Creatinine [Mass/Vol] 0.61 mg/dL 0.55-1.02 [facility] Comment on above: The validity of the calculated GFR & GFRAA in patients over 70 years has not been determined. Clinical correlation is essential. Serum or plasma ferritin kate surement (mass/volume)Ordered By: Dr. Bob on 02-21-2023 Ferritin [Mass/Vol] 9 ng/mL 8-252 [facility] Serum or plasma iron saturat ion measurement (mass fraction)Ordered By: Dr. Bob on 02-21-2023 Iron saturation [Mass fraction] 8.6 % 15.0-55.0 [facility] Serum or plasma urea nitroge n measurement (mass/volume)Ordered By: Dr. Lee on 02-21-2023 Urea nitrogen [Mass/Vol] 14 mg/dL 7-18 [facility] Thin prep Papanicolaou smear with manual screeningOrdered By: Dr. Lee on 02-21-2023 Thin prep Papanicolaou smear with manual screening 10 5-15 [facility] Absolute lymphocyte countOrd ered By: Dr. Lee on 02-06-2023 Lymphocytes Auto (Unsp spec) [#/Vol] 1.16 10*3/uL 0.83-4.51 [facility] Basophil percentageOrdered B y: Dr. Lee on 02-06-2023 Basophils/100 WBC (Bld) 0.3 % 0-1 [facility] Chloride [Moles/Vol] 109 mmol/L 98-107 [facility] Eosinophils/100 WBC (Bld) 3.8 % 0-5 [facility] Glucose [Mass/Vol] 87 mg/dL 74-106 [facility] Neutrophils (Bld) [#/Vol] 2.3 10*3/uL 2.0-7.7 [facility] Neutrophils/100 WBC (Bld) 56.7 % 47-70 [facility] Potassium [Moles/Vol] 2.7 mmol/L 3.5-5.1 [facility] Comment on above: Critical Result(s) C alled at: 17:57:20 02/06/2023 by: YISEL VELIZ to DR. CITLALI LEE. Results read back by same. Sodium [Moles/Vol] 142 mmol/L 136-145 [facility] WBC (Bld) [#/Vol] 4.0 10*3/uL 4.4-11.0 [facility] Basophil percentageOrdered B y: Dr. Raygoza on 02-06-2023 Potassium [Moles/Vol] 2.3 mmol/L 3.5-5.1 [facility] Comment on above: Critical Result(s) C alled at: 10:07:11 02/06/2023 by: Becca Coyne. Results read back by same. Blood erythrocytes count (nu mber/volume)Ordered By: Dr. Lee on 02-06-2023 RBC (Bld) [#/Vol] 3.75 10*6/uL 4.2-5.4 [facility] Blood hemoglobin measurement (mass/volume)Ordered By: Dr. Lee on 02-06-2023 Hemoglobin (Bld) [Mass/Vol] 10.9 g/dL 12.0-15.0 [facility] Blood lymphocytes/100 leukoc ytesOrdered By: Dr. Lee on 02-06-2023 Lymphocytes/100 WBC (Bld) 29.3 % 19-41 [facility] Blood monocytes/100 leukocyt esOrdered By: Dr. Lee on 02-06-2023 Monocytes/100 WBC (Bld) 9.6 % 0-10 [facility] Blood platelet mean volumeOr dered By: Dr. Lee on 02-06-2023 Platelet mean volume (Bld) [Entitic vol] 10.4 fL 6.2-12.0 [facility] Determination of erythrocyte mean corpuscular volume (MCV)Ordered By: Dr. Lee on 02-06-2023 MCV (RBC) [Entitic vol] 91.7 fL 81-99 [facility] Hematocrit Auto (Bld) [Volum e fraction]Ordered By: Dr. Lee on 02-06-2023 Hematocrit (Bld) [Volume fraction] 34.4 % 37-47 [facility] Laboratory - Chemistry and C hemistry - challengeOrdered By: Dr. Lee on 02-06-2023 CO2 [Moles/Vol] 29.0 mmol/L 21.0-32.0 [facility] Magnesium [Mass/Vol] 2.8 mg/dL 1.6-2.6 [facility] Urea nitrogen/Creatinine [Mass ratio] 15.2 mg/mg 10-20 [facility] Laboratory - Chemistry and C hemistry - challengeOrdered By: Dr. Raygoza on 02-06-2023 Magnesium [Mass/Vol] 1.7 mg/dL 1.6-2.6 [facility] Laboratory - Chemistry and C hemistry - challengeOrdered By: Dr. Bone on 02-06-2023 HCG ( test) Ql (U) Negative [facility] Comment on above: Very dilute urine sp ecimens, as indicated by a low specificgravity, may not contain media sales representative levels of hCG. If is still suspected, a first morning urinespecimen should be collected 48 hours later and tested. Laboratory - Hematology and Cell countsOrdered By: Dr. Lee on 02-06-2023 Erythrocyte distribution width (RBC) [Entitic vol] 61.2 fL 35.1-43.9 [facility] Erythrocyte distribution width (RBC) [Ratio] 18.3 % 11.6-14.6 [facility] Immature granulocytes/100 WBC (Bld) 0.300 % 0.0-0.9 [facility] Comment on above: IG% - Immature Granu locytes (promyelocytes, myelocytes and metamyelocytes) > 1% indicates that a LEFT SHIFT is Present. MCH (RBC) [Entitic mass] 29.1 pg 27.0-32.0 [facility] Nucleated RBC/100 WBC (Bld) [Ratio] 0 % 0-5 [facility] MCHC Auto (RBC) [Mass/Vol]Or dered By: Dr. Lee on 02-06-2023 MCHC (RBC) [Mass/Vol] 31.7 g/dL 32-36 [facility] No Panel InformationOrdered By: Dr. Lee on 02-06-2023 Estimated GFR (MDRD) Amer 157 mL/min >60 [facility] Comment on above: GFR Calc Estimated GFR (MDRD) Non-Af Amer 130 mL/min >60 [facility] Comment on above: Non- GFR Calc Platelets bldOrdered By: Dr. Lee on 02-06-2023 Platelets (Bld) [#/Vol] 302 10*3/uL 150-450 [facility] Serum or plasma calcium susan urement (mass/volume)Ordered By: Dr. Lee on 02-06-2023 Calcium [Mass/Vol] 8.2 mg/dL 8.5-10.1 [facility] Serum or plasma creatinine m easurement (mass/volume)Ordered By: Dr. Lee on 02-06-2023 Creatinine [Mass/Vol] 0.53 mg/dL 0.55-1.02 [facility] Comment on above: The validity of the calculated GFR & GFRAA in patients over 70 years has not been determined. Clinical correlation is essential. Serum or plasma urea nitroge n measurement (mass/volume)Ordered By: Dr. Lee on 02-06-2023 Urea nitrogen [Mass/Vol] 8 mg/dL 7-18 [facility] Thin prep Papanicolaou smear with manual screeningOrdered By: Dr. Lee on 02-06-2023 Thin prep Papanicolaou smear with manual screening 4 5-15 [facility] Absolute lymphocyte countOrd ered By: Dr. Lee on 01-10-2023 Lymphocytes Auto (Unsp spec) [#/Vol] 1.19 10*3/uL 0.83-4.51 [facility] Basophil percentageOrdered B y: Dr. Lee on 01-10-2023 Basophils/100 WBC (Bld) 0.2 % 0-1 [facility] Eosinophils/100 WBC (Bld) 2.2 % 0-5 [facility] Neutrophils (Bld) [#/Vol] 3.3 10*3/uL 2.0-7.7 [facility] Neutrophils/100 WBC (Bld) 65.8 % 47-70 [facility] WBC (Bld) [#/Vol] 5.0 10*3/uL 4.4-11.0 [facility] Blood erythrocytes count (nu mber/volume)Ordered By: Dr. Lee on 01-10-2023 RBC (Bld) [#/Vol] 3.80 10*6/uL 4.2-5.4 [facility] Blood hemoglobin measurement (mass/volume)Ordered By: Dr. Lee on 01-10-2023 Hemoglobin (Bld) [Mass/Vol] 10.4 g/dL 12.0-15.0 [facility] Blood lymphocytes/100 leukoc ytesOrdered By: Dr. Lee on 01-10-2023 Lymphocytes/100 WBC (Bld) 23.8 % 19-41 [facility] Blood monocytes/100 leukocyt esOrdered By: Dr. Lee on 01-10-2023 Monocytes/100 WBC (Bld) 7.6 % 0-10 [facility] Blood platelet mean volumeOr dered By: Dr. Lee on 01-10-2023 Platelet mean volume (Bld) [Entitic vol] 10.3 fL 6.2-12.0 [facility] Determination of erythrocyte mean corpuscular volume (MCV)Ordered By: Dr. Lee on 01-10-2023 MCV (RBC) [Entitic vol] 92.4 fL 81-99 [facility] Hematocrit Auto (Bld) [Volum e fraction]Ordered By: Dr. Lee on 01-10-2023 Hematocrit (Bld) [Volume fraction] 35.1 % 37-47 [facility] Laboratory - Hematology and Cell countsOrdered By: Dr. Lee on 01-10-2023 Erythrocyte distribution width (RBC) [Entitic vol] 64.1 fL 35.1-43.9 [facility] Erythrocyte distribution width (RBC) [Ratio] 19.1 % 11.6-14.6 [facility] Immature granulocytes/100 WBC (Bld) 0.400 % 0.0-0.9 [facility] Comment on above: IG% - Immature Granu locytes (promyelocytes, myelocytes and metamyelocytes) > 1% indicates that a LEFT SHIFT is Present. MCH (RBC) [Entitic mass] 27.4 pg 27.0-32.0 [facility] Nucleated RBC/100 WBC (Bld) [Ratio] 0 % 0-5 [facility] MCHC Auto (RBC) [Mass/Vol]Or dered By: Dr. Lee on 01-10-2023 MCHC (RBC) [Mass/Vol] 29.6 g/dL 32-36 [facility] Platelets bldOrdered By: Dr. Lee on 01-10-2023 Platelets (Bld) [#/Vol] 370 10*3/uL 150-450 [facility] Absolute lymphocyte countOrd ered By: Dr. Lee on 12-12-2022 Lymphocytes Auto (Unsp spec) [#/Vol] 1.51 10*3/uL 0.83-4.51 [facility] Basophil percentageOrdered B y: Dr. Lee on 12-12-2022 Basophils/100 WBC (Bld) 0.4 % 0-1 [facility] Bilirubin [Mass/Vol] 0.20 mg/dL 0.20-1.00 [facility] Comment on above: For patients on eltr ombopag therapy, use of Dimension [place] TBIL is not recommended. Chloride [Moles/Vol] 107 mmol/L 98-107 [facility] Cholesterol [Mass/Vol] 199 mg/dL <200 [facility] Comment on above: <200 mg/dL Desirable 200-240 mg/dL Borderline >240 mg/dL High Risk Eosinophils/100 WBC (Bld) 4.2 % 0-5 [facility] Glucose [Mass/Vol] 76 mg/dL 74-106 [facility] Neutrophils (Bld) [#/Vol] 2.5 10*3/uL 2.0-7.7 [facility] Neutrophils/100 WBC (Bld) 54.2 % 47-70 [facility] Potassium [Moles/Vol] 3.3 mmol/L 3.5-5.1 [facility] Protein [Mass/Vol] 7.0 g/dL 6.4-8.2 [facility] Sodium [Moles/Vol] 139 mmol/L 136-145 [facility] Triglyceride [Mass/Vol] 55 mg/dL <199 [facility] Comment on above: The drugs N-Acetylcy steine and Metamizole may falsely depress this assay.Serum Triglycerides Reference Interval Normal <150 mg/dL Borderline high 150 - 199 mg/dL High 200 - 499 mg/dL Very High > or = 500 mg/dL WBC (Bld) [#/Vol] 4.6 10*3/uL 4.4-11.0 [facility] Blood erythrocytes count (nu mber/volume)Ordered By: Dr. Lee on 12-12-2022 RBC (Bld) [#/Vol] 3.95 10*6/uL 4.2-5.4 [facility] Blood hemoglobin measurement (mass/volume)Ordered By: Dr. Lee on 12-12-2022 Hemoglobin (Bld) [Mass/Vol] 10.5 g/dL 12.0-15.0 [facility] Blood lymphocytes/100 leukoc ytesOrdered By: Dr. Lee on 12-12-2022 Lymphocytes/100 WBC (Bld) 33.1 % 19-41 [facility] Blood monocytes/100 leukocyt esOrdered By: Dr. Lee on 12-12-2022 Monocytes/100 WBC (Bld) 7.9 % 0-10 [facility] Blood platelet mean volumeOr dered By: Dr. Lee on 12-12-2022 Platelet mean volume (Bld) [Entitic vol] 10.1 fL 6.2-12.0 [facility] Determination of erythrocyte mean corpuscular volume (MCV)Ordered By: Dr. Lee on 12-12-2022 MCV (RBC) [Entitic vol] 88.9 fL 81-99 [facility] Hematocrit Auto (Bld) [Volum e fraction]Ordered By: Dr. Lee on 12-12-2022 Hematocrit (Bld) [Volume fraction] 35.1 % 37-47 [facility] Laboratory - Chemistry and C hemistry - challengeOrdered By: Dr. Lee on 12-12-2022 ALP [Catalytic activity/Vol] 38 U/L 45-117 [facility] ALT [Catalytic activity/Vol] 16 U/L 13-56 [facility] CO2 [Moles/Vol] 25.0 mmol/L 21.0-32.0 [facility] Globulin (S) [Mass/Vol] 3.5 g/dL 2.2-4.2 [facility] Urea nitrogen/Creatinine [Mass ratio] 22.4 mg/mg 10-20 [facility] Laboratory - Hematology and Cell countsOrdered By: Dr. Lee on 12-12-2022 Erythrocyte distribution width (RBC) [Entitic vol] 53.1 fL 35.1-43.9 [facility] Erythrocyte distribution width (RBC) [Ratio] 16.2 % 11.6-14.6 [facility] Immature granulocytes/100 WBC (Bld) 0.200 % 0.0-0.9 [facility] Comment on above: IG% - Immature Granu locytes (promyelocytes, myelocytes and metamyelocytes) > 1% indicates that a LEFT SHIFT is Present. MCH (RBC) [Entitic mass] 26.6 pg 27.0-32.0 [facility] Nucleated RBC/100 WBC (Bld) [Ratio] 0 % 0-5 [facility] MCHC Auto (RBC) [Mass/Vol]Or dered By: Dr. Lee on 12-12-2022 MCHC (RBC) [Mass/Vol] 29.9 g/dL 32-36 [facility] No Panel InformationOrdered By: Dr. Lee on 12-12-2022 Estimated GFR (MDRD) Amer 129 mL/min >60 [facility] Comment on above: GFR Calc Estimated GFR (MDRD) Non-Af Amer 107 mL/min >60 [facility] Comment on above: Non- GFR Calc Hepatitis C Antibody Non-Reactive Nonreactive [facility] Comment on above: Non Reactive: < 0.8 Equivocal: >/= 0.8 to < 1.0 Reactive: >/= 1.0The CDC recommends that a reactive/equivocal HCV antibody result be followed up by the HCV Nucleic Acid Amplificationtest (078732) Thyroid Stimulating Hormone (TSH) 2.12 uIU/mL 0.358-3.74 [facility] Vitamin D 25-Hydroxy 15.4 ng/mL [facility] Comment on above: Vitamin D 25(OH) Sta tus Range Deficiency <20 ng/mL (50nmol/L) Insufficiency 20 - 30 ng/mL (50 - 75 nmol/L) Sufficiency 30 - 100 ng/mL (75 - 250 nmol/L) Toxicity >100 ng/mL (>250 nmol/L) Platelets bldOrdered By: Dr. Lee on 12-12-2022 Platelets (Bld) [#/Vol] 394 10*3/uL 150-450 [facility] Serum or plasma albumin ussan urement (mass/volume)Ordered By: Dr. Lee on 12-12-2022 Albumin [Mass/Vol] 3.5 g/dL 3.2-5.0 [facility] Serum or plasma albumin/glob ulin mass ratioOrdered By: Dr. Lee on 12-12-2022 Albumin/Globulin [Mass ratio] 1.0 {ratio} 0.9-2.4 [facility] Serum or plasma calcium susan urement (mass/volume)Ordered By: Dr. Lee on 12-12-2022 Calcium [Mass/Vol] 8.6 mg/dL 8.5-10.1 [facility] Serum or plasma cholesterol in HDL measurement (mass/volume)Ordered By: Dr. Lee on 12-12-2022 Cholesterol in HDL [Mass/Vol] 72 mg/dL >40 [facility] Comment on above: The drugs N-Acetylcy steine and Metamizole may falsely depress this assay. Reference Range HDL <40 mg/dL Low HDL Cholesterol HDL >or= 60 mg/dL High HDL Cholesterol Serum or plasma cholesterol in VLDL measurement (mass/volume)Ordered By: Dr. Lee on 12-12-2022 Cholesterol in VLDL [Mass/Vol] 11 mg/dL 5-40 [facility] Serum or plasma creatinine m easurement (mass/volume)Ordered By: Dr. Lee on 12-12-2022 Creatinine [Mass/Vol] 0.62 mg/dL 0.55-1.02 [facility] Comment on above: The validity of the calculated GFR & GFRAA in patients over 70 years has not been determined. Clinical correlation is essential. Serum or plasma low density lipoprotein (LDL) cholesterol measurement (mass/volume)Ordered By: Dr. Lee on 12-12-2022 Cholesterol in LDL [Mass/Vol] 116 mg/dL 0-130 [facility] Serum or plasma urea nitroge n measurement (mass/volume)Ordered By: Dr. Lee on 12-12-2022 Urea nitrogen [Mass/Vol] 14 mg/dL 7-18 [facility] Thin prep Papanicolaou smear with manual screeningOrdered By: Dr. Lee on 12-12-2022 Thin prep Papanicolaou smear with manual screening 16 U/L 15-37 [facility] Thin prep Papanicolaou smear with manual screening 7 5-15 [facility] HCVon 06-01-2022 Hep C Ab Non-Reactive Normal Non-Reactive [facility] Comment on above: Performed By: #### G FR, LIPID, TSH, CMP #### [facility] [address] [place], [place] [address] #### HCV1 #### [facility] [address] [place] [id number] Hep C Ab Int Normal [facility] Comment on above: Result Comment: Nonr eactive: Samples with a value < 0.80 are considered nonreactive (negative) for antibodies to HCV. A negative test result does not exclude the possibility of exposure to or infection with HCV. HCV antibodies may be undetectable in some stages of the infection and in some clinical conditions. See Interp Performed By: #### G FR, LIPID, TSH, CMP #### [place] [address] [place], [place] [address] #### HCV1 #### [facility] [address] [place] [id number] .GFRon 05-31-2022 GFR Non- 102 ml/min/1.73sqm Normal [facility] Comment on above: Result Comment: GFR Population mean for , Non- Americans Ages 20-29 = 116 mL/min/1.73 sq.m. Ages 30-39 = 107 mL/min/1.73 sq.m. Ages 40-49 = 99 mL/min/1.73 sq.m. Ages 50-59 = 93 mL/min/1.73 sq.m. Ages 60-69 = 85 mL/min/1.73 sq.m. Ages 70+ = 75 mL/min/1.73 sq.m. Chronic Kidney Disease: Less than 60 mL/min/1.73 square meters End Stage Renal Disease: Less than 15 mL/min/1.73 square meters Performed By: #### G FR, LIPID, TSH, CMP #### [place] [place], [place] [address] #### HCV1 #### [facility] [address] [place] [id number] GFR 123 ml/min/1.73sqm Normal [facility] Comment on above: Result Comment: GFR Population mean for , Non- Americans Ages 20-29 = 116 mL/min/1.73 sq.m. Ages 30-39 = 107 mL/min/1.73 sq.m. Ages 40-49 = 99 mL/min/1.73 sq.m. Ages 50-59 = 93 mL/min/1.73 sq.m. Ages 60-69 = 85 mL/min/1.73 sq.m. Ages 70+ = 75 mL/min/1.73 sq.m. Chronic Kidney Disease: Less than 60 mL/min/1.73 square meters End Stage Renal Disease: Less than 15 mL/min/1.73 square meters Performed By: #### G FR, LIPID, TSH, CMP #### [place] [address] #### HCV1 #### [address] [address] CMPon 05-31-2022 Albumin Level 3.8 G/dL Normal 3.5-5.0 [facility] Comment on above: Performed By: #### G FR, LIPID, TSH, CMP #### [place] [address] #### HCV1 #### [address] [address] Albumin/Globulin [Mass ratio] 1.2 {ratio} Normal 1.1-2.5 [facility] Comment on above: Performed By: #### G FR, LIPID, TSH, CMP #### [place] [address] #### HCV1 #### [address] [address] ALP [Catalytic activity/Vol] 52 U/L Normal 40-135 [facility] Comment on above: Performed By: #### G FR, LIPID, TSH, CMP #### [place] [address] #### HCV1 #### [address] [address] ALT [Catalytic activity/Vol] 14 U/L Normal 14-59 [facility] Comment on above: Performed By: #### G FR, LIPID, TSH, CMP #### [address] [address] #### HCV1 #### [address] [address] AST [Catalytic activity/Vol] 15 U/L Normal 10-40 [facility] Comment on above: Performed By: #### G FR, LIPID, TSH, CMP #### [place] [address] #### HCV1 #### [address] [address] Bili Total 0.2 mg/dL Normal 0.2-1.0 [facility] Comment on above: Result Comment: Use of this assay is not recommended for patients undergoing treatment with eltrombopag due to the potential for falsely elevated results. Performed By: #### G FR, LIPID, TSH, CMP #### [place] [address] #### HCV1 #### [place] [address] BUN/Creatinine Ratio 15 ratio Normal 7-27 [facility] ([place]) Comment on above: Performed By: #### G FR, LIPID, TSH, CMP #### [place] [address] #### HCV1 #### [address] [address] Calcium [Mass/Vol] 8.5 mg/dL Normal 8.4-10.2 [facility] ([place]) Comment on above: Performed By: #### G FR, LIPID, TSH, CMP #### [place] [address] #### HCV1 #### [address] [address] Chloride [Moles/Vol] 103 mmol/L Normal 98-107 [facility] ([place]) Comment on above: Performed By: #### G FR, LIPID, TSH, CMP #### [place] [address] #### HCV1 #### [address] [address] CO2 [Moles/Vol] 27 mmol/L Normal 22-29 [facility] ([place]) Comment on above: Performed By: #### G FR, LIPID, TSH, CMP #### [place] [address] #### HCV1 #### [address] [address] Creatinine [Mass/Vol] 0.62 mg/dL Normal 0.55-1.02 [facility] ([place]) Comment on above: Performed By: #### G FR, LIPID, TSH, CMP #### [place] [address] #### HCV1 #### [address] [address] Electrolyte Balance 11.0 mEq/L Normal 4.0-15.0 [facility] ([place]) Comment on above: Performed By: #### G FR, LIPID, TSH, CMP #### [place] [address] #### HCV1 #### [address] [address] Globulin 3.3 G/dL Normal [facility] ([place]) Comment on above: Performed By: #### G FR, LIPID, TSH, CMP #### [place] [address] #### HCV1 #### [address] [address] Glucose [Mass/Vol] 85 mg/dL Normal 70-105 [facility] ([place]) Comment on above: Performed By: #### G FR, LIPID, TSH, CMP #### [place] [address] #### HCV1 #### [address] [address] Potassium [Moles/Vol] 3.5 mmol/L Normal 3.5-5.1 [facility] ([place]) Comment on above: Performed By: #### G FR, LIPID, TSH, CMP #### [place] [address] #### HCV1 #### [address] [address] Sodium [Moles/Vol] 141 mmol/L Normal 136-145 [facility] ([place]) Comment on above: Performed By: #### G FR, LIPID, TSH, CMP #### [place] [address] #### HCV1 #### [address] [address] Total Protein 7.1 G/dL Normal 6.4-8.2 [facility] ([place]) Comment on above: Performed By: #### G FR, LIPID, TSH, CMP #### [address] [address] #### HCV1 #### [address] [address] Urea nitrogen [Mass/Vol] 9 mg/dL Normal 7-18 [facility] ([place]) Comment on above: Performed By: #### G FR, LIPID, TSH, CMP #### [address] [address] #### HCV1 #### [address] [address] LABORATORYOrdered By: Lara Kasper on 05-31-2022 Albumin BCP dye [Mass/Vol] 3.8 G/dL Invalid Interpretation Code 3.5 - 5.0 G/dL AO ADM SS Albumin/Globulin [Mass ratio] 1.2 {ratio} Invalid Interpretation Code 1.1 - 2.5 ratio AO ADM SS ALP [Catalytic activity/Vol] 52 U/L Invalid Interpretation Code 40 - 135 U/L AO ADM SS ALT With P-5'-P [Catalytic activity/Vol] 14 U/L Invalid Interpretation Code 14 - 59 U/L AO ADM SS AST With P-5'-P [Catalytic activity/Vol] 15 U/L Invalid Interpretation Code 10 - 40 U/L AO ADM SS Bilirubin [Mass/Vol] 0.2 mg/dL Invalid Interpretation Code 0.2 - 1.0 mg/dL AO ADM SS Calcium [Mass/Vol] 8.5 mg/dL Invalid Interpretation Code 8.4 - 10.2 mg/dL AO ADM SS Chloride [Moles/Vol] 103 mmol/L Invalid Interpretation Code 98 - 107 mmol/L AO ADM SS Cholesterol [Mass/Vol] 177 mg/dL Invalid Interpretation Code 0 - 200 mg/dL AO ADM SS Cholesterol in HDL [Mass/Vol] 66 mg/dL Invalid Interpretation Code 40 - 60 mg/dL AO ADM SS Cholesterol in LDL [Mass/Vol] 94 mg/dL Invalid Interpretation Code 0 - 130 mg/dL AO ADM SS CO2 [Moles/Vol] 27 mmol/L Invalid Interpretation Code 22 - 29 mmol/L AO ADM SS Creatinine [Mass/Vol] 0.62 mg/dL Invalid Interpretation Code 0.55 - 1.02 mg/dL AO ADM SS Electrolyte Balance 11.0 mEq/L Invalid Interpretation Code 4.0 - 15.0 mEq/L AO ADM SS Globulin 3.3 G/dL Invalid Interpretation Code AO ADM SS Glucose [Mass/Vol] 85 mg/dL Invalid Interpretation Code 70 - 105 mg/dL AO ADM SS Potassium [Moles/Vol] 3.5 mmol/L Invalid Interpretation Code 3.5 - 5.1 mmol/L AO ADM SS Protein [Mass/Vol] 7.1 G/dL Invalid Interpretation Code 6.4 - 8.2 G/dL AO ADM SS Sodium [Moles/Vol] 141 mmol/L Invalid Interpretation Code 136 - 145 mmol/L AO ADM SS Triglyceride [Mass/Vol] 87 mg/dL Invalid Interpretation Code 0 - 150 mg/dL AO ADM SS TSH Qn 1.83 m[IU]/L Invalid Interpretation Code 0.36 - 3.74 mcIU/mL AO ADM SS Urea nitrogen [Mass/Vol] 9 mg/dL Invalid Interpretation Code 7 - 18 mg/dL AO ADM SS Urea nitrogen/Creatinine [Mass ratio] 15 ratio Invalid Interpretation Code 7 - 27 ratio AO ADM SS LABORATORYOrdered By: SYSTEM SYSTEM on 05-31-2022 GFR 123 ml/min/1.73sqm Invalid Interpretation Code AO Chemistry S GFR Non- 102 ml/min/1.73sqm Invalid Interpretation Code AO Chemistry S LABORATORYOrdered By: Jeannette Ocampo on 05-31-2022 HCV Ab IA Ql Non-Reactive (05/31/22 2:14 PM) Invalid Interpretation Code Non-Reactive AH ADM SS HCV Ab IA Ql Nonreactive: Samples with a value < 0.80 are considered nonreactive (negative) for antibodies to HCV.A negative test result does not exclude the possibility of exposure to or infection with HCV. HCV antibodies may be undetectable in some stages of the infection and in some clinical conditions. Invalid Interpretation Code AH Chemistry S LIPIDon 05-31-2022 Cholesterol [Mass/Vol] 177 mg/dL Normal 0-200 [facility] ([place]) Comment on above: Result Comment: Chol esterol Reference Interval: Less than 200 Desirable 200-239 Borderline high risk 240 and above High risk Performed By: #### G FR, LIPID, TSH, CMP #### [address] [address] #### HCV1 #### [address] [address] Cholesterol in HDL [Mass/Vol] 66 mg/dL High 40-60 [facility] ([place]) Comment on above: Performed By: #### G FR, LIPID, TSH, CMP #### [address] [address] #### HCV1 #### [address] [address] Cholesterol in LDL [Mass/Vol] 94 mg/dL Normal 0-130 [facility] ([place]) Comment on above: Performed By: #### G FR, LIPID, TSH, CMP #### [address] [address] #### HCV1 #### [address] [address] Triglyceride [Mass/Vol] 87 mg/dL Normal 0-150 [facility] ([place]) Comment on above: Result Comment: Trig lyceride Reference Interval: Less than 150 Normal 150-199 Borderline high risk 200-499 High risk 500 or higher Very high risk Performed By: #### G FR, LIPID, TSH, CMP #### [address] [address] #### HCV1 #### [address] [address] [place] MAMMOGRAM SCREENING BILAT ERAL W/TOMOon 05-31-2022 [place] MAMMOGRAM SCREENING BILATERAL W/NBA ORIGINAL FROM: [address] [address] PROCEDURE FOR: YULISSA ALAN [address] [place] [address] Home: PID#: [id number] Exam#: [id number] : 1970 Age: 51 TO: RUDOLPH CROWLEY DO [address] [address] Fax: NO FAX EXAMINATION: SCREENING DIGITAL BILATERAL MAMMOGRAM WITH TOMOSYNTHESIS, 05/31/2022 2:25 pm TECHNIQUE: Screening mammography of the bilateral breasts was performed with tomosynthesis. 2D standard and 3D tomosynthesis combination imaging performed through both breasts in the MLO and CC projection. Computer aided detection was utilized in the interpretation of this exam. COMPARISON: 03/08/2021, 09/26/2017 HISTORY: Breast cancer screening. FINDINGS: BREAST DENSITY: Heterogeneously dense There is a benign calcification in the left breast. There are no significant masses or calcifications. IMPRESSION: No mammographic evidence of malignancy. Continued screening with annual mammograms is recommended. BIRADS: MAMMOGRAM BI-RADS: 2: Benign finding RECALL: 1 year screening RECALL TYPE: mammo LETTER SENT: Normal BI-RADS 1 and 2 Interpreted by: Tyrone Noland MD Preliminary Report By: Tyrone Noland MD Electronically signed By Tyrone Noland MD Dictated Date: 06/01/2022 3:12:24 PM Prelim Date: 06/01/2022 3:16:03 PM Sign Date: 06/01/2022 3:16:03 PM Ordering Provider: RUDOLPH CROWLEY Wood Inspector: ABE MCDANIELS RT (R) (M) (CT) letter sent: Normal BI-RADS 1 and 2 Mammogram BI-RADS: 2 Benign Normal [facility] ([place]) TSHon 05-31-2022 TSH Qn 1.83 m[IU]/L Normal 0.36-3.74 [facility]) Comment on above: Performed By: #### G FR, LIPID, TSH, CMP #### [facility] [address] [place] [address] #### HCV1 #### [address] [address] t-TRANSGLUT IGAon 05-29-2018 t-TRANSGLUT IGA <2 Normal 0-3 [facility] Comment on above: Result Comment: Nega tive 0 - 3 Weak Positive 4 - 10 Positive >10 Tissue Transglutaminase (tTG) has been identified as the endomysial antigen. Studies have demonstr- ated that endomysial IgA antibodies have over 99% specificity for gluten sensitive enteropathy.Performed At: [facility] [place], [place] [id number] Vincent [id number] Performed By: #### L 500.00864, L500.02902, L500.96705, L500.93953 ####[facility] ACQRZIWZBS7820 [place], [place] [address]Tl# [phone] [facility] 05-14-2018 GI ------ Patient: YULISSA ALAN SPECIMEN: GI- Collection Date: 05/14/18 Received: 05/17/18 Status: JANAY Ramon Dr.: Jair Blanco MD Ph# Othr. : Rudolph Guillaume Material for Examination: A GASTRIC BX, R/O H. PYLORI B ESOPHAGEAL BX @ 38 CM, R/O ALEJANDRE'S PRE-OP DIAGNOSIS: ESOPHAGEAL OBSTRUCTION POST-OP DIAGNOSIS: NONE GIVEN SURGICAL PROCEDURE: NONE GIVEN SPECIMEN COMMENTS: RECEIVED FROM [facility], [address] [place] [address] 2 Norma SLIDES LABELED [id number] YULISSA ALAN L1,L2 2 Norma SLIDES LABELED [id number] YULISSA ALAN L1,B4ERENGEXPF A. Gastric biopsy (rule out H. pylori): Fragments of gastric mucosa with mild chronic gastritis. Norma stained sections are negative for H. pylori-like organisms.B. Esophageal biopsy at 38 cm (rule out Alejandre's esophagus): Fragment of gastroesophageal junctional mucosa, no intestinal metaplasia or dysplasia identified.GROSS DESCRIPTION The specimen is grossed and processed at [facility] The following is the provided gross description:A. Received in formalin, labeled gastric, is a single irregular, soft, pink-anderson fragmentof tissue measuring 0.2 x 0.2 cm. The specimen is entirely submitted in one cassette.B. Received in formalin, labeled esophagus at 38 cm, is a single irregular, soft,pink-anderson fragment of tissue measuring less than 0.1 x 0.1 cm. The specimen is entirelysubmitted in one cassette.MICROSCOPIC DESCRIPTION 4 Norma stained sections examined. [facility] NAME: YULISSA ALAN Pathology and Laboratory Medicine UNIT#: [id number] LOC: [facility] [employer] Salesperson: Dang Alejandre M.D. ROOM/BED: [facility] : 72 AGE/SEX: 47/F ORD.Jair Pena MD CONTINUED ON NEXT PAGE Patient: YULISSA ALAN Unit#: [id number] (continued)SPECIMEN: [id number] COPIES TO: Jair Blanco MD, KristinSigned Verified/Reviewed by SARAHI NO M.D. 05/21/18 This dictation was created using voice recognition software. Phonetic and/or minor grammatical errors may exist. [facility] NAME: YULISSA ALAN Pathology and Laboratory Medicine UNIT#: [id number] LOC: [facility] [employer] Salesperson: Dang Alejandre M.D. [id number] : 72 AGE/SEX: 47/F ORD.Jair Pena MD END OF REPORT Normal [facility] IGAon 03-05-2018 IgA mass conc 207 mg/dL Normal 87-352 [facility] Comment on above: Result Comment: Perf ormed At: [facility] Qglvvg4392 [place], [place] [id number] Vincent [id number] Performed By: #### L 500.46455, L500.99623, L500.12675, L500.32301 ####[facility] QNGXFARZFB6959 [place], [place] [address]Hy# [phone] SMEAR REVIEWon 03-05-2018 SMEAR REVIEW Normal [facility] Comment on above: Result Comment: Incr eased RDW ( >19.0 ). Consider early iron folate/B12, ormixed deficiencies.Reviewed by Sarahi No M.D., Pathologist. 03/04/18.57724. Performed By: #### L 500.01298, L500.47054, L500.93179, L500.58624 ####[facility] XFZGMSSHOE8468 [place], [place] [address]Yp# [phone] CBC W/DIFFon 03-02-2018 ANISO 4+ Normal [facility] Comment on above: Performed By: #### L 500.75163, L500.42650, L500.53111, L500.51133 ####[facility] BWVAWCZQFZ8486 [place] [id number]# [phone] EOS ABS 0.30 K/CU MM Normal 0-0.5 [facility] Comment on above: Performed By: #### L 500.39818, L500.89351, L500.24307, L500.11120 ####[facility] [address] [place], [place] [address]Ph# [phone] Eosinophils/100 WBC Auto (Bld) 5.0 % Normal 0-5 [facility] Comment on above: Performed By: #### L 500.43541, L500.19825, L500.77102, L500.09255 ####[facility] KZ[address] [place] [address]# [phone] Lymphocytes Auto #/vol (Bld) 0.89 K/CU MM Low 0.9-4.4 [facility] Comment on above: Performed By: #### L 500.10355, L500.77217, L500.91981, L500.17212 ####[facility] OX[address]KWZ[address] [place], [place] [address]Ph# [phone] Lymphocytes/100 WBC Auto (Bld) 15.0 % Low 20-40 [facility] Comment on above: Performed By: #### L 500.25723, L500.36731, L500.92005, L500.32931 ####[facility] JHWZ[address]SUAN[address] [place], [place] [address]Ph# [phone] MONO ABS 0.41 K/CU MM Normal 0.1-1.1 [facility] Comment on above: Performed By: #### L 500.58775, L500.14170, L500.91031, L500.11780 ####[facility] FV[address]BF[address] [place], [place] [address]Ph# [phone] Monocytes/100 WBC Auto (Bld) 7.0 % Normal 2-10 [facility] Comment on above: Performed By: #### L 500.84281, L500.32463, L500.44727, L500.20530 ####[facility] SPJOEBPHIS1434 [place], [place] [address]Dh# [phone] NEUTROPHIL ABS 4.31 K/CU MM Normal 2.0-8.3 [facility] Comment on above: Performed By: #### L 500.96064, L500.91577, L500.00331, L500.28849 ####[facility] XADDDEUQTR2990 [place], [place] [address]Rj# [phone] Neutrophils/100 WBC Auto (Bld) 73.0 % Normal 45-75 [facility] Comment [facility] above: Performed By: #### L 500.70126, L500.98863, L500.10729, L500.02407 ####[facility] GMAUNRLPCC[address] [place], [place] [address]Ph# [phone] OVALOCYTES 1+ Normal [facility] Comment on above: Performed By: #### L 500.86490, L500.01004, L500.61226, L500.87922 ####[facility] ASIESCTDEQ6872 [place], [place] [address]Vd# [phone] PLT EST ADEQUATE Normal [facility] Comment on above: Performed By: #### L 500.07931, L500.61756, L500.56262, L500.96788 ####[facility] [address] [place] [address]Ys# [phone] POIK 3+ Normal [facility] Comment on above: Performed By: #### L 500.43546, L500.98954, L500.77707, L500.47764 ####[facility] [address]QBMJ[address] [place] [address]Jn# [phone] SCHISTOCYTES 1+ Normal [facility] Comment on above: Performed By: #### L 500.90613, L500.71553, L500.44914, L500.94677 ####[facility] QUYDYWEJLF1675 [place], [place] [address]Ku# [phone] Erythrocyte distribution width Auto Ratio (RBC) 33.5 % High 11-14.5 [facility] Comment on above: Performed By: #### L 500.59562, L500.85331, L500.84457, L500.23048 ####[facility] NPNZNCXVAO1282 [place], [place] [address]Bb# [phone] Hematocrit Auto Volume Fraction (Bld) 37.1 % Normal 35.0-47.0 [facility] Comment on above: Performed By: #### L 500.31646, L500.37029, L500.01575, L500.69148 ####[address] [address]Sa# [phone] Hemoglobin mass conc (Bld) 10.2 g/dL Low 11.5-15.5 [facility] Comment on above: Performed By: #### L 500.35759, L500.43480, L500.65391, L500.82468 ####[facility] C[address] [place] [address]Po# [phone] MCHC Auto mass conc (RBC) 27.5 g/dL Low 32.0-36.0 [facility] Comment on above: Performed By: #### L 500.54058, L500.01945, L500.38110, L500.24785 ####[facility] LMISIOGRHA6618 [place], [place] [address]Nj# [phone] MCV Auto Entitic volume (RBC) 79.8 fL Low 80.0-99.0 [facility] Comment on above: Performed By: #### L 500.85556, L500.98567, L500.32734, L500.80229 ####[facility] UV[address]FF[address]NRQY[address] [place] [address]Ws# [phone] Nucleated RBC/100 WBC Ratio (Bld) 0.0 % Normal Less than 1 [facility] Comment on above: Performed By: #### L 500.48360, L500.12131, L500.60152, L500.44729 ####[facility] ZIRJIAXFXL8721 [place], [place] [address]So# [phone] Platelet mean volume Auto Entitic volume (Bld) 10.4 fL Normal 9.4-12.4 [facility] Comment on above: Performed By: #### L 500.64647, L500.06532, L500.05015, L500.86437 ####[facility] [address]GI[address] [place] [address]Ih# [phone] Platelets Auto #/vol (Bld) 344 K/CU MM Normal 150-450 [facility] Comment on above: Performed By: #### L 500.27731, L500.28288, L500.48776, L500.27765 ####[facility] NM[address]GUFBY[address] [place] [address]Km# [phone] RBC Auto #/vol (Bld) 4.65 M/CU MM Normal 3.90-5.30 [facility] Comment on above: Performed By: #### L 500.52762, L500.14086, L500.61408, L500.23872 ####[facility] [address]POX[address] [place] [address]Ea# [phone] WBC Auto #/vol (Bld) 5.9 K/CU MM Normal 4.5-11.0 [facility] Comment on above: Performed By: #### L 500.47343, L500.54998, L500.43044, L500.80090 ####[facility] QBR[address]IK[address] [place] [address]Pu# [phone] Debi 03-02-2018 FERR 109.9 NG/ML Normal 8.0-307.0 [facility] Comment on above: Performed By: #### L 500.98413, L500.21828 ####[facility] YPXUVMHVGE7858 [place], [place] [address]Wt# [phone] IRON PANELon 03-02-2018 Iron mass conc 47 ug/dL Low 50-170 [facility] Comment on above: Result Comment: Liane ents treated with metal-binding drugs (e.g.deferoxamine)may have depressed iron values, as chelated iron may notproperly react in the Siemens iron assay. Performed By: #### L 500.48947, L500.40309 ####[facility] APRSWQYZDD2615 [place], [place] [address]Wq# [phone] IRON SAT 13 % Low 22-44 [facility] Comment on above: Performed By: #### L 500.59372, L500.72826 ####[facility] GULKVIPWKG5991 [place], [place] [address]Ha# [phone] TIBC 358 UG/DL Normal 221-481 [facility] Comment on above: Performed By: #### L 500.14467, L500.76856 ####[facility] GJTPKZKJBP1002 [place], [place] [address]Vn# [phone] CBC W/DIFFon 01-15-2018 BASO ABS 0.00 K/CU MM Normal 0-0.2 [facility] Comment on above: Performed By: #### L 200.94075 ####[facility] LAXFFEMZJA7233 [place], [place] [address]Qr# [phone] Basophils/100 WBC Auto (Bld) 0.5 % Normal 0-2 [facility] Comment on above: Performed By: #### L 200.41097 ####[facility] QPPNVXIDMW6742 [place], [place] [address]Kn# [phone] EOS ABS 0.20 K/CU MM Normal 0-0.5 [facility] Comment on above: Performed By: #### L 200.80229 ####[facility] [id number] [place] [address]Qd# [phone] Eosinophils/100 WBC Auto (Bld) 4.0 % Normal 0-5 [facility] Comment on above: Performed By: #### L 200.59172 ####[facility] TOZFNCPSVC5752 [place], [place] [address]Dp# [phone] Erythrocyte distribution width Auto Ratio (RBC) 20.1 % High 11-14.5 [facility] Comment on above: Performed By: #### L 200.89259 ####[facility] CKMHBUNRBL[address] [place] [address]Ez# [phone] Hematocrit Auto Volume Fraction (Bld) 28.2 % Low 35.0-47.0 [facility] Comment on above: Performed By: #### L 200.21919 ####[facility] O[address]WKCEIPKF[address] [place] [address]Xk# [phone] Hemoglobin mass conc (Bld) 7.6 g/dL Low 11.5-15.5 [facility] Comment on above: Performed By: #### L 200.28068 ####[facility] [address]SEMWPHVVU[address] [place] [address]Sg# [phone] IMMATR GRAN ABS 0.00 K/CU MM Normal Less than 2 [facility] Comment on above: Performed By: #### L 200.71431 ####[facility] [id number] [place] [address]Ku# [phone] IMMATURE GRAN % 0.3 % Normal Less than 2 [facility] Comment on above: Performed By: #### L 200.14374 ####[facility] [id number] [place] [address]Sx# [phone] Lymphocytes Auto #/vol (Bld) 1.20 K/CU MM Normal 0.9-4.4 [facility] Comment on above: Performed By: #### L 200.50371 ####[facility] [id number] [place] [address]Se# [phone] Lymphocytes/100 WBC Auto (Bld) 30.5 % Normal 20-40 [facility] Comment on above: Performed By: #### L 200.27889 ####[facility] CEAAKKFGVV0565 [place], [place] [address]Iz# [phone] MCHC Auto mass conc (RBC) 27.0 g/dL Low 32.0-36.0 [facility] Comment on above: Performed By: #### L 200.61090 ####[facility] [address]WNXDD[address] [place], [place] [address]Ph# [phone] MCV Auto Entitic volume (RBC) 68.0 fL Low 80.0-99.0 [facility] Comment on above: Performed By: #### L 200.42747 ####[facility] OPCHDVVCKX[address] [place] [address]Wm# [phone] MONO ABS 0.40 K/CU MM Normal 0.1-1.1 [facility] Comment on above: Performed By: #### L 200.85737 ####[facility] [address]VJZCVSU[address] [place], [place] [address]Ph# [phone] Monocytes/100 WBC Auto (Bld) 9.3 % Normal 2-10 [facility] Comment on above: Performed By: #### L 200.56803 ####[facility] UHGJZFXZTG[address] [place] [address]Sm# [phone] NEUTROPHIL ABS 2.10 K/CU MM Normal 2.0-8.3 [facility] Comment on above: Performed By: #### L 200.55994 ####[facility] TFMUJTAYGH[address] [place] [address]Zq# [phone] Neutrophils/100 WBC Auto (Bld) 55.4 % Normal 45-75 [facility] Comment on above: Performed By: #### L 200.85361 ####[facility] YSXKTIYGIB[address] [place] [address]Wr# [phone] Nucleated RBC/100 WBC Ratio (Bld) 0.0 % Normal Less than 1 [facility] Comment on above: Performed By: #### L 200.70803 ####[facility] DKJARFPELN4165 [place], [place] [address]Fn# [phone] Platelet mean volume Auto Entitic volume (Bld) 10.4 fL Normal 9.4-12.4 [facility] Comment on above: Performed By: #### L 200.96585 ####[facility] OBDYNPIWXL2814 [place], [place] [address]Xj# [phone] Platelets Auto #/vol (Bld) 329 K/CU MM Normal 150-450 [facility] Comment on above: Performed By: #### L 200.13212 ####[facility] [id number] [place], [place] [address]Nz# [phone] RBC Auto #/vol (Bld) 4.15 M/CU MM Normal 3.90-5.30 [facility] Comment on above: Performed By: #### L 200.58679 ####[facility] [id number] [place] [address]Su# [phone] WBC Auto #/vol (Bld) 3.8 K/CU MM Low 4.5-11.0 [facility] Comment on above: Performed By: #### L 200.89309 ####[facility] [id number] [place], [place] [address]Uo# [phone] Debi 01-15-2018 FERR 8.6 NG/ML Normal 8.0-307.0 [facility] Comment on above: Performed By: #### L 500.53227, L500.62828 ####[facility] [id number] [place], [place] [address]Fa# [phone] IRON PANELon 01-15-2018 Iron mass conc 14 ug/dL Low 50-170 [facility] Comment on above: Result Comment: Liane ents treated with metal-binding drugs (e.g.deferoxamine)may have depressed iron values, as chelated iron may notproperly react in the Siemens iron assay. Performed By: #### L 500.49901, L500.72547 ####[facility] [id number] [place], [place] [address]Tc# [phone] IRON SAT 3 % Low 22-44 [facility] Comment on above: Performed By: #### L 500.11951, L500.02150 ####[facility] [id number] [place], [place] [address]Td# [phone] TIBC 493 UG/DL High 221-481 [facility] Comment on above: Performed By: #### L 500.86245, L500.83503 ####[facility] [id number] [place] [address]My# [phone] B12on 10-30-2017 Cobalamin (Vitamin B12) mass conc 429.7 pg/mL Normal 193-986 [facility] Comment on above: Performed By: #### L 500.38969, L500.21157, L500.38718, L500.59073 ####[facility] [id number] [place] [address]At# [phone] CBC W/DIFFon 10-30-2017 BASO ABS 0.00 K/CU MM Normal 0-0.2 [facility] Comment on above: Performed By: #### L 200.87932 ####[facility] [id number] [place] [address]Dh# [phone] Basophils/100 WBC Auto (Bld) 0.6 % Normal 0-2 [facility] Comment on above: Performed By: #### L 200.70986 ####[facility] [id number] [place] [address]Kb# [phone] EOS ABS 0.30 K/CU MM Normal 0-0.5 [facility] Comment on above: Performed By: #### L 200.05089 ####[facility] [id number] [place] [address]Sx# [phone] Eosinophils/100 WBC Auto (Bld) 6.2 % High 0-5 [facility] Comment on above: Performed By: #### L 200.27591 ####[facility] [id number] [place] [address]Vc# [phone] Erythrocyte distribution width Auto Ratio (RBC) 18.1 % High 11-14.5 [facility] Comment on above: Performed By: #### L 200.89680 ####[address] [address]Pz# [phone] Hematocrit Auto Volume Fraction (Bld) 30.2 % Low 35.0-47.0 [facility] Comment on above: Performed By: #### L 200.42414 ####[place] [address]0308Ph# [phone] Hemoglobin mass conc (Bld) 8.7 g/dL Low 11.5-15.5 [facility] Comment on above: Performed By: #### L 200.90315 ####[place] [address]0308Ph# [phone] IMMATR GRAN ABS 0.00 K/CU MM Normal Less than 2 [facility] Comment on above: Performed By: #### L 200.25587 ####[address] [address]Aw# [phone] IMMATURE GRAN % 0.4 % Normal Less than 2 [facility] Comment on above: Performed By: #### L 200.21503 ####[facility] [id number] [place], [place] [address]Ph# [phone] Lymphocytes Auto #/vol (Bld) 1.20 K/CU MM Normal 0.9-4.4 [facility] Comment on above: Performed By: #### L 200.34594 ####[facility] [id number] [place] [address]Nq# [phone] Lymphocytes/100 WBC Auto (Bld) 24.3 % Normal 20-40 [facility] Comment on above: Performed By: #### L 200.23426 ####[address] [place], [place] [address]Dh# [phone] MCHC Auto mass conc (RBC) 28.8 g/dL Low 32.0-36.0 [facility] Comment on above: Performed By: #### L 200.35737 ####[facility] [id number] [place], [place] [address]Wf# [phone] MCV Auto Entitic volume (RBC) 72.9 fL Low 80.0-99.0 [facility] Comment on above: Performed By: #### L 200.34265 ####[facility] [id number] [place], [place] [address]Lb# [phone] MONO ABS 0.40 K/CU MM Normal 0.1-1.1 [facility] Comment on above: Performed By: #### L 200.26806 ####[facility] [id number] [place], [place] [address]Ph# [phone] Monocytes/100 WBC Auto (Bld) 8.0 % Normal 2-10 [facility] Comment on above: Performed By: #### L 200.03036 ####[facility] [id number] [place], [place] [address]Ph# [phone] NEUTROPHIL ABS 3.00 K/CU MM Normal 2.0-8.3 [facility] Comment on above: Performed By: #### L 200.31261 ####[facility] [id number] [place], [place] [address]Ph# [phone] Neutrophils/100 WBC Auto (Bld) 60.5 % Normal 45-75 [facility] Comment on above: Performed By: #### L 200.24619 ####[facility] [id number] [place] [address]Iw# [phone] Nucleated RBC/100 WBC Ratio (Bld) 0.0 % Normal Less than 1 [facility] Comment on above: Performed By: #### L 200.73983 ####[facility] [id number] [place], [place] [address]Ph# [phone] Platelet mean volume Auto Entitic volume (Bld) 11.0 fL Normal 9.4-12.4 [facility] Comment on above: Performed By: #### L 200.01468 ####[facility] [id number] [place], [place] [address]Dt# [phone] Platelets Auto #/vol (Bld) 319 K/CU MM Normal 150-450 [facility] Comment on above: Performed By: #### L 200.95984 ####[facility] [id number] [place] [address]Qn# [phone] RBC Auto #/vol (Bld) 4.14 M/CU MM Normal 3.90-5.30 [facility] Comment on above: Performed By: #### L 200.98472 ####[facility] [id number] [place] [address]Nj# [phone] WBC Auto #/vol (Bld) 5.0 K/CU MM Normal 4.5-11.0 [facility] Comment on above: Performed By: #### L 200.66638 ####[facility] [id number] [place] [address]Sa# [phone] Debi 10-30-2017 FERR 3.1 NG/ML Low 8.0-307.0 [facility] Comment on above: Performed By: #### L 500.03021, L500.85499, L500.93665, L500.93159 ####[facility] [id number] [place] [address]Vp# [phone] FOLIC ACIDon 10-30-2017 FOLIC ACID 9.8 NG/ML Normal >3.0 [facility] Comment on above: Performed By: #### L 500.04572, L500.72973, L500.79964, L500.20633 ####[facility] [id number] [place], [place] [address]Kd# [phone] IRON PANELon 10-30-2017 Iron mass conc 10 ug/dL Low 50-170 [facility] Comment on above: Result Comment: Liane ents treated with metal-binding drugs (e.g.deferoxamine)may have depressed iron values, as chelated iron may notproperly react in the Siemens iron assay. Performed By: #### L 500.32496, L500.08459, L500.48467, L500.66575 ####[facility] [id number] [place], [place] [address]Xw# [phone] IRON SAT 2 % Low 22-44 [facility] Comment on above: Performed By: #### L 500.70380, L500.71174, L500.78074, L500.87461 ####[facility] [id number] [place], [place] [address]Na# [phone] TIBC 497 UG/DL High 221-481 [facility] Comment on above: Performed By: #### L 500.92571, L500.86292, L500.94725, L500.49915 ####[facility] [id number] [place], [place] [address]Nq# [phone] Vital Signs Date Time Vital Sign Value Performing Clinician Alexis vargas 09-12-2023 14:45-0500 Body height 149.[address] Citlali Lee Work Phone: [facility] 09-12-2023 14:43-0500 Body mass index (BMI) [Ratio] 20.2 kg/m2 Dr. Citlali Lee Work Phone: [facility] 09-12-2023 14:43-0500 Body temperature 98.2 [degF] Dr. Citlali Lee Work Phone: [facility] 09-12-2023 14:43-0500 Body weight 45.[address] Citlali Lee Work Phone: [facility] 09-12-2023 14:43-0500 Diastolic blood pressure 78 mm[Hg] Dr. Citlali Lee Work Phone: [facility] 09-12-2023 14:43-0500 Heart rate 64 /min Dr. Citlali Lee Work Phone: [facility] 09-12-2023 14:43-0500 Respiratory rate 18 /min Dr. Citlali Lee Work Phone: [facility] 09-12-2023 14:43-0500 SaO2% (BldA) [Mass fraction] 100 % Dr. Citlali Lee Work Phone: [facility] 09-12-2023 14:43-0500 Systolic blood pressure 118 mm[Hg] Dr. Citlali Lee Work Phone: 8(995)495-833661 [place] [address] 03-21-2023 14:42-0400 Body height 149.[address] Citlali Lee Work Phone: 8(010)550-103946 [place] [address] 03-21-2023 14:42-0400 Body mass index (BMI) [Ratio] 19.2 kg/m2 Dr. Citlali Lee Work Phone: 9(542)953-659461 [place] [address] 03-21-2023 14:42-0400 Body temperature 98.4 [degF] Dr. Citlali Lee Work Phone: 3(970)045-523761 [place] [address] 03-21-2023 14:42-0400 Body weight 43.[address] Citlali Lee Work Phone: 9(655)265-702529 [address] 03-21-2023 14:42-0400 Diastolic blood pressure 72 mm[Hg] Dr. Citlali Lee Work Phone: 2(795)936-184761 [place] [address] 03-21-2023 14:42-0400 Heart rate 69 /min Dr. Citlali Lee Work Phone: [facility] 03-21-2023 14:42-0400 Respiratory rate 16 /min Dr. Citlali Lee Work Phone: [facility] 03-21-2023 14:42-0400 SaO2% (BldA) [Mass fraction] 100 % Dr. Citlali Lee Work Phone: [facility] 03-21-2023 14:42-0400 Systolic blood pressure 112 mm[Hg] Dr. Citlali Lee Work Phone: [facility] 02-21-2023 14:21-0400 Body height 149.[address] Citlali Lee Work Phone: [facility] 02-21-2023 14:21-0400 Body mass index (BMI) [Ratio] 19.1 kg/m2 Dr. Citlali Lee Work Phone: [facility] 02-21-2023 14:21-0400 Body temperature 98.4 [degF] Dr. Citlali Lee Work Phone: [facility] 02-21-2023 14:21-0400 Body weight 42.[address] Citlali Lee Work Phone: 9(198)983-884561 [place] [address] 02-21-2023 14:21-0400 Diastolic blood pressure 71 mm[Hg] Dr. Citlali Lee Work Phone: 8(630)909-232729 [address] 02-21-2023 14:21-0400 Heart rate 72 /min Dr. Citlali Lee Work Phone: 8(966)094-577761 [place] [address] 02-21-2023 14:21-0400 Respiratory rate 16 /min Dr. Citlali Lee Work Phone: [facility] 02-21-2023 14:21-0400 SaO2% (BldA) [Mass fraction] 99 % Dr. Citlali Lee Work Phone: 1(578)180-193361 [place] [address] 02-21-2023 14:21-0400 Systolic blood pressure 111 mm[Hg] Dr. Citlali Lee Work Phone: [facility] 02-06-2023 09:50-0400 Body temperature 98.1 [degF] Dr. Citlali Lee Work Phone: 3(002)140-973061 [place] [address] 02-06-2023 09:50-0400 Diastolic blood pressure 71 mm[Hg] Dr. Citlali Lee Work Phone: [facility] 02-06-2023 09:50-0400 Heart rate 63 /min Dr. Citlali Lee Work Phone: [facility] 02-06-2023 09:50-0400 Respiratory rate 16 /min Dr. Citlali Lee Work Phone: [facility] 02-06-2023 09:50-0400 SaO2% (BldA) [Mass fraction] 100 % Dr. Citlali Lee Work Phone: [facility] 02-06-2023 09:50-0400 Systolic blood pressure 110 mm[Hg] Dr. Citlali Lee Work Phone: [facility] 02-06-2023 08:32-0400 Body height 149.[address] Citlali Lee Work Phone: [facility] 02-06-2023 08:32-0400 Body mass index (BMI) [Ratio] 20.2 kg/m2 Dr. Citlali Lee Work Phone: [facility] 02-06-2023 08:32-0400 Body weight 45.[address] Citlali Lee Work Phone: [facility] 12-26-2022 14:40-0400 Body mass index (BMI) [Ratio] 20.2 kg/m2 Dr. Citlali Lee Work Phone: [facility] 12-26-2022 14:40-0400 Body weight 45.[address] Citlali Lee Work Phone: [facility] 12-26-2022 14:40-0400 Diastolic blood pressure 78 mm[Hg] Dr. Citlali Lee Work Phone: [facility] 12-26-2022 14:40-0400 Respiratory rate 16 /min Dr. Citlali Lee Work Phone: [facility] 12-26-2022 14:40-0400 Systolic blood pressure 117 mm[Hg] Dr. Citlali Lee Work Phone: [facility] Encounters Encounter Date Encounter Type Care Provider Facility Start: 02-26-2025 End: 02-26-2025 ambulatory Citlali Chi [place] Facility:[facility] Start: 01-15-2025 End: 01-15-2025 ambulatory Citlali Chi Lico Facility:[facility] Start: 12-25-2024 End: 12-25-[address] Citlali Lee MD Work Phone: [facility] Work Phone: Start: 12-25-2024 End: 12-25-[address] Citlali Lee MD -Laboratory, Phy Office 3rd Flr Start: 12-25-2024 End: 12-25-2024 ambulatory [facility] Facility:[facility] Start: 06-24-2024 End: 06-24-2024 ambulatory [facility] Facility:[facility] Start: 03-12-2024 End: 03-12-2024 ambulatory [facility] Facility:[facility] Start: 01-08-2024 End: 01-08-2024 ambulatory [facility] Work Phone: Start: 01-08-2024 End: 01-08-2024 Patient encounter procedure [facility]-Outpatient Breast Imaging Work Phone: Start: 12-25-2023 End: 12-25-[address] Citlali Lee Work Phone: [facility] Work Phone: Start: 12-25-2023 End: 12-25-[address] Citlali Lee Work Phone: [facility]-Laboratory, y Office 3rd Flr Start: 12-14-2023 End: 12-14-[address] Citlail Lee Work Phone: [facility] Work Phone: Start: 12-14-2023 End: 12-14-[address] Citlali Lee Work Phone: [facility]-Laboratory Work Phone: Start: 12-06-2023 End: 12-06-[address] Citlali Lee Work Phone: [facility] Work Phone: Start: 12-06-2023 End: 12-06-[address] [facility] Start: 11-21-2023 End: 11-21-[address] [facility] Start: 11-12-2023 End: 11-12-[address] Citlali Lee Work Phone: [facility] Work Phone: Start: 11-12-2023 End: 11-12-[address] Citlali Lee Work Phone: [facility], y Office 3rd Flr Start: 09-12-[address] Citlali houser Work Phone: [facility] Start: 09-12-2023 End: 09-12-[address] Citlali Lee Work Phone: [facility] Work Phone: Start: 07-24-2023 End: 07-24-2023 ambulatory [facility] Work Phone: Start: 07-24-2023 End: 07-24-2023 Patient encounter procedure [facility] Work Phone: Start: 06-29-2023 End: 06-29-2023 [facility] Start: 06-19-2023 End: 06-19-[address] Citlali Lee Work Phone: [facility] Work Phone: Start: 06-19-2023 End: 06-19-[address] [facility] Start: 06-06-2023 End: 06-06-[address] [facility] Work Phone: Start: 03-21-2023 End: 03-21-[address] Citlali Lee Work Phone: [facility] Work Phone: Start: 03-21-[address] Citlali houser Work Phone: [facility] Start: 02-21-[address] Citlali houser Work Phone: [facility] Start: 02-21-2023 End: 02-21-[address] Citlali Lee Work Phone: [facility] Work Phone: Start: 02-21-2023 End: 02-21-[address] Citlali Lee Work Phone: [facility] Start: 02-08-2023 Non-patient / Non-visit Dr. Filemon Lee Work Phone: [facility] Start: 02-06-2023 End: 02-06-[address] Citlali Lee Work Phone: [facility] Work Phone: Start: 02-06-2023 End: 02-06-[address] [facility] Start: 02-06-2023 Non-patient / Non-visit Dr. Filemon Lee Work Phone: [facility] Start: 02-06-2023 End: 02-06-2023 Admission to same day surgery center Dr. Citlali Lee Work Phone: [facility]-Endoscopy Start: 01-10-2023 End: 01-10-[address] Citlali Lee Work Phone: [facility]-Laboratory, y Office 3rd Flr Start: 12-26-2022 End: 12-26-[address] Citlali Lee Work Phone: [facility] Start: 12-12-2022 End: 12-12-2022 ambulatory [facility] Work Phone: Start: 12-12-2022 End: 12-12-2022 Patient encounter procedure [facility]-Laboratory, y Office 3rd Flr Start: 05-31-2022 End: 05-31-2022 Patient encounter procedure RUDOLPH CROWLEY DO [facility] Start: 05-28-2018 Patient encounter Jair Espinoza lity:[facility] Start: 05-14-2018 Patient encounter Jair Uriah Bella Alexis lity:[facility] Start: 03-02-2018 Patient encounter Jairkyra Espinoza lity:[facility] Start: 02-28-2018 End: 02-28-2018 Ambulatory [facility] Start: 01-15-2018 Patient encounter Jair Espinoza lity:[facility] Start: 10-30-2017 Patient encounter Jair Espinoza lity:[facility] Procedures Date Procedure Procedure Detail Performing Clinician Start: 01-08-2024 Screening mammography Start: 11-12-2023 Diagnostic radiograp hy of abdomen, decubitus and erect Dr. Citlali Lee Work Phone: Start: 11-12-[address] Citlali houser Work Phone: Start: 07-24-2023 CT of abdomen and pe lvis without contrast Start: 06-06-[address] Citlali houser Work Phone: Start: 02-06-[address] Citlali bradford Work Phone: Start: 01-06-2016 Cystoscopy RUDOLPH MARIA DO Comment on above: ONE STENT Start: 10-01-2015 Renal lithotripsy DORI CROWLEY DO Start: 10-01-2011 Lithotripsy xtrcorp shock wave RUDOLPH CROWLEY DO Start: 10-01-2001 Cholecystectomy RUDOLPH CROWLEY DO Plan of Treatment Date Care Activity Detail Author Start: 02-06-2023 Assay of magnesium ASSAY OF MAGNESIUM [facility] Start: 02-06-2023 Basic metabolic panel calcium total METABOLIC PANEL TOTAL CA [facility] Start: 02-06-2023 Blood count complete auto&auto difrntl wbc COMPLETE CBC W/AUTO DIFF WBC [facility] Start: 02-06-2023 Collection venous blood venipuncture ROUTINE VENIPUNCTURE [facility] Start: 02-06-2023 Colonoscopy w/biopsy single/multiple COLONOSCOPY AND BIOPSY [facility] Start: 02-06-2023 Esophagogastroduodenoscopy transoral diagnostic EGD DIAGNOSTIC BRUSH WASH [facility] Start: 02-06-2023 Patient discharge [facility] CBC W Auto Different ial panel - Blood [facility] CBC W Auto Different ial panel - Blood [facility] CBC W Auto Different ial panel - Blood [facility] Colonoscopy [facility] Ferritin [Mass/volum e] in Serum or Plasma [facility] Ferritin [Mass/volum e] in Serum or Plasma [facility] Ferritin [Mass/volum e] in Serum or Plasma [facility] Iron and Iron bindin g capacity panel - Serum or Plasma [facility] Iron and Iron bindin g capacity panel - Serum or Plasma [facility] Iron and Iron bindin g capacity panel - Serum or Plasma [facility] Patient referral [facility] Work Phone: Reticulocyte count [facility] Reticulocyte count [facility] Reticulocyte count [facility] Vitamin B12 measurement [facility] Immunizations Immunization Date Immunization Notes Care Provider Fa daljit 02-07-2022 tetanus toxoid, redu anibal diphtheria toxoid, and acellular pertussis vaccine, adsorbed; Translations: [Boostrix (Tdap)] RUDOLPH CROWLEY DO [facility] 02-07-2022 zoster vaccine recombinant; Translations: [Shingrix] RUDOLPH CROWLEY DO [facility] 09-09-2021 SARS-CoV-2 (COVID-19 ) mRNA-1273 vaccine RUDOLPH CROWLEY DO [facility] 08-17-2021 influenza, injectabl e, quadrivalent, contains preservative; Translations: [Fluarix PF Quadrivalent ] RUDOLPH CROWLEY DO [facility] 01-06-2021 SARS-CoV-2 (COVID-19 ) Ad26 vaccine, recombinant RUDOLPH CROWLEY DO [facility] Comment on above: Result Comment: 2020: TPV40 08-05-2020 influenza, injectabl e, quadrivalent, preservative free; Translations: [Fluarix PF Quadrivalent ] RUDOLPH CROWLEY DO [facility] 07-25-2019 influenza, injectabl e, quadrivalent, preservative free; Translations: [Fluarix PF Quadrivalent ] RUDOLPH CROWLEY DO [facility] 07-04-2018 influenza virus vaccine, H1N1, inactivated RUDOLPH CROWLEY DO [facility] 07-04-2018 influenza virus vaccine, unspecified formulation RUDOLPH CROWLEY DO [facility] 08-08-2016 influenza virus vaccine, unspecified formulation RUDOLPH CROWLEY DO [facility] Payers Date Payer Category Payer Medicaid [id number] 2023 Self-pay 2015 Unknown [id number] Unknown [id number] Unknown [employer] [id number] Unknown [id number] 2.16.8 [id number] Unknown [id number] 2.16.8 [id number] Unknown [id number] 2.16.8 [id number] Unknown [id number] 2.16.8 [id number] Unknown [id number] 2.16.8 [id number] Unknown [id number] 2.16.8 [id number] Social History Date Type Detail Facility Start: 10-24-2019 End: 02-21-2023 Tobacco smoking status Never smoked tobacco (finding) [facility] Comment on above: No Tobacco/Smoke Exp osure Start: 1970 Sex Assigned At Female [facility] Start: 02-27-2017 End: 02-21-2023 Tobacco smoking status NHIS Unknown if ever smoked [facility] Start: 12-30-2024 Sex Female (finding) [facility] NEGATED: Highlighted row [facility] Goals Date Patient Goal Desired Activity /State Mental Status Date Assessment Result Facility 02-06-2023 Cognitive function Voice/Name [facility] Work Phone: Evaluation + Plan note Note Date & Type Note Facility Evaluation + Plan note Future Appointments Appointment Date:11/15/2022 02:00:00 PM Scheduled Provider:RUDOLPH CROWLEY DO Location:[facility] Appointment Type:PC OV Follow Up [facility] Evaluation note Note Date & Type Note Facility Evaluation note No assessment information avail[employer] ble [facility] Work Phone: Evaluation note Note Date & Type Note Facility Evaluation note Diagnosis Onset Date Abdominal pain acute Blood in stool acute Anemia noneactive [facility] Work Phone: Evaluation note Note Date & Type Note Facility Evaluation note Diagnosis Onset Date Abdominal pain acute Blood in stool acute Anemia noneactive Anemia chronic Iron deficiency anemia chron [facility] Work Phone: Evaluation note Note Date & Type Note Facility Evaluation note Diagnosis Onset Date Anemia chronic Iron deficiency anemia [facility] Work Phone: Hospital course Narrative Note Date & Type Note Facility Hospital course Narrative No data available for this section [facility] Hospital Discharge instructions Note Date & Type Note Facility Hospital Discharge instructions No data available for this section [facility] Progress note Note Date & Type Note Facility Progress note No data available for this section [facility] Reason for referral (narrative) Note Date & Type Note Facility Reason for referral (narrative) No reason for referral information available [facility] Work Phone: Summary Purpose Family History No Family History Records Found Relationship Condition Age at Onset Recorded Date/T raina mother Diabetes mellitus Unknown father Cardiac disease Unknown Advance Directives No Advanced Directives Records Found Advance Directive Response Recorded Date/ Time Living Will No February 27, 2017 3 :57pm Power of Design Consultant No February 27, 2017 3:57pm Advance Directive Response Recorded Date/ Time Living Will No February 01, 2023 11 :59am Power of Design Consultant No February 01, 2023 11:59am Advance Directive Response Recorded Date/ Time Living Will No February 01, 2023 10 :59am Power of Design Consultant No February 01, 2023 10:59am Advance Directive Response Recorded Date/ Time Living Will No February 01, 2023 11 :59am Do you have a Healthcare Power of Design Consultant? No February 01, 2023 11:59am Chief Complaint and Reason for Visit Chief Complaint Anemia Amb Documentation Reason for Visit Abdominal pain Blood in stool Anemia Chief Complaint Anemia Amb Documentation NEW PT - ANEMIA 4 WKS - LABS Reason for Visit Abdominal pain Blood in stool Anemia Anemia Iron deficiency anemia Chief Complaint 4 WKS - LABS 4 WKS - LABS Reason for Visit Anemia Iron deficiency anemia Chief Complaint Calculus of kidney Chief Complaint Calculus of kidney 6 MO - LABS 4 WKS - LABS Reason for Visit Anemia Iron deficiency anemia Chief Complaint 6 MO - LABS 4 WKS - LABS BMP BMP Reason for Visit Anemia Iron deficiency anemia Chief Complaint BMP BMP SCREENING Additional Source Comments INFORMATION SOURCE (unrecogn ized section and content) DATE CREATED AUTHOR 03/20/2018 [facility] DATE CREATED AUTHOR AUTHOR'S ORGANIZ ATION 07/13/2018 [facility] DATE CREATED AUTHOR AUTHOR'S ORGANIZ ATION 06/06/2022 [facility] ([place]) DATE CREATED AUTHOR AUTHOR'S ORGANIZ ATION 02/28/2025 [facility] Care Team (unrecognized sect ion and content) Care Team Personnel Name: RUDOLPH CROWLEY DO Position: P4 Physician - Primary Care Member Role: Primary Care Physician Address: Address: [address] [place] [address] [facility] [address] Care Team Related Persons Name: GARCIA BRYANT Care Team Personnel Name: RUDOLPH CROWLEY DO Position: P4 Physician - Primary Care Member Role: Primary Care Physician Address: Address: [address] [place] [address] [facility] [address] Care Team Related Persons Name: GARCIA BRYANT Care Teams (unrecognized sec tion and content) Team Status: Active Member Role Status Dates Rudolph Guillaume DO Family Provider Active Dr. Citlali Lee MD Primary Care Provider Active Team Status: Inactive Member Role Status Dates Dr. Ciltali Lee MD Primary Care Provider, Attending Provider Active Team Status: Inactive Member Role Status Dates Dr. Citlali Lee MD Primary Care Provider, Referring Provider Active Dr. Olivier Hoover MD Attending Provider Active Team Status: Active Member Role Status Dates Dr. Citlali Lee MD Primary Care Provider Active Dr. Olivier Hoover MD Attending Pr ovider, Referring Provider, Other Provider Active Team Status: Active Member Role Status Dates Dr. Citlali Lee MD Primary Care Provider Active Sarah Loyd Attending Provider Active Team Status: Inactive Member Role Status Dates Dr. Citlali Lee MD Primary Care Provider Active Dr. Olivier Hoover MD Attending Provider, Referr ing Provider Active Team Status: Inactive Member Role Status Dates Dr. Citlali Lee MD Primary Care Provider, Referring Provider Active Dr. Rukhsana Bob MD Attending Provider Active Team Status: Active Member Role Status Dates Dr. Citlali Lee MD Primary Care Provider Active Dr. Rukhsana Bob MD Attending Provider, Referrin g Provider Active Team Status: Inactive Member Role Status Dates Dr. Citlali Lee MD Primary Care Provi preeti, Attending Provider, Referring Provider Active Team Status: Active Member Role Status Dates Dr. Citlali Lee MD Primary Care Provider Active Team Status: Inactive Member Role Status Dates Dr. Citlali Lee MD Primary Care Provider Active Start: December 25, 2024 End: December 25, 2024 Dr. Citlali Lee MD Attending Provider Active Start: December 25, 2024 End: December 25, 2024 Goals (unrecognized section and content) Goals may be documented in a n alternate section FOR RECORDS PERTAINING TO PATIENTS WHO ARE [...] BE BASED ON THE PRIMARY CLINICAL RECORDS. [employer] provides no warranty or guarantee of the accuracy or completeness of information in this document.
[2025-04-24] VITALS (26 sets, daily range): BP systolic 92–139; BP diastolic 57–99; PULSE 56–100; RESP 12–24; TEMP 36.6–36.9; O2SAT 94–100; BMI 18.6
[2025-04-24] MEDS: Potassium Chloride 10mEq/100mL 10 MEQ/100 ML IV.SOLN. 100 MEQ IV BOLUS ×14 (00:07→22:09)
[2025-04-24 02:38] LABS: Anion Gap 10 (5-15); BUN 14 mg/dL (4-19); BUN/Creat Ratio 28.7 RATIO (10-20); Calcium,Total 8.1 mg/dL (7.6-11.0); Carbon Dioxide 28.6 mmol/L (21.0-32.0); Chloride 106 mmol/L (98-108); Estimated Creatinine Clearance 89.08 ml/min (50-250); Glucose 109 mg/dL (70-99); Potassium 2.2 mmol/L (3.3-5.1)
[2025-04-24 06:31] LABS: Hematocrit 35.5 % (37-47); Hemoglobin 12.4 g/dL (12.0-15.0); Immature Granulocytes Count 0.020 X10^3/uL (0.0-0.0); Mean Corp Hgb Conc 34.9 g/dL (32-36); Mean Corpuscular Volume 87.4 fL (81-99); Mean Platelet Vol. 9.4 fl (6.2-12.0); NRBC Flagged by Analyzer 0 % (0-5); Platelet Count 487 K/mm3 (150-450); RBC Distribution Width CV 16.2 % (11.6-14.6); RBC Distribution Width SD 51.8 fl (35.1-43.9); Red Blood Count 4.06 M/mm3 (4.2-5.4); White Blood Count 10.3 K/mm3 (4.4-11.0)
[2025-04-24] MEDS: Potassium Chloride Oral Tablet 20 MEQ PO (07:42)
[2025-04-24 08:33] LABS: Cholesterol 159 mg/dL (<=200); Low Density Lipoprotein Calc. 79 mg/dL; Magnesium 2.8 mg/dL (1.5-2.2); Triglycerides 230 mg/dL; Very Low Density Lipoprotein 46 mg/dL (5-40); cholesterol:hdl ratio screen 4.70
[2025-04-24 08:54] LABS: Anion Gap 9 (5-15); BUN 12 mg/dL (4-19); BUN/Creat Ratio 26.1 RATIO (10-20); Calcium,Total 7.9 mg/dL (7.6-11.0); Carbon Dioxide 27.8 mmol/L (21.0-32.0); Chloride 106 mmol/L (98-108); Estimated Creatinine Clearance 89.87 ml/min (50-250); Glucose 101 mg/dL (70-99)
[2025-04-24 08:55] LABS: Potassium 2.6 mmol/L (3.3-5.1)
--- NOTE | 2025-04-24 09:26 | CASEMGMT ---
Addendum entered by Elsa Padilla 04/24/25 13:50: See MRI results (-). RICHARD CAMERON to the pt room after PT and OT evaluations. Pt states that she still feels safe returning home once medically ready and denies HH or OP Tx needs. Pt denies further questions or concerns at this time. Original Note: RICHARD CAMERON Assessment Face to Face with patient for initial transition planning/care coordination assessment. RICHARD CAMERON introduced self and role at [facility], pt voices understanding. Pt is A&Ox4 and is resting comfortably in bed and is calm. Care providers, pharmacy, and demographics verified. Admitting dx: Hypokalemia, Concern for CVA (CT (-), MRI Pending at this time) LACE Strata: 1 PCP: [facility] Specialists: Hematology but cannot recall the name Preferred Pharmacy: [facility] Insurance: [employer] Prescription Benefit: Yes LNOK: Ja Santacruz (SO - Lives in separate location) Living Arrangements: Pt lives with her mother in a 2 story home with one step to enter. Pt states that her mother is mainly indep as well. ADLs/IADLs: Pt states that she is indep at baseline. Pt states that she was able to ambulate to the bathroom today with no issues. current 6-Click score is 19. PT/OT pending Transportation: Friends. Denies concerns DME: Access to a FWW, Cane, BP Machine, and pox. HHC/SNF/ OP Tx: Denies hx or needs at this time Pt?s goal: Home Plan: Home, anticipate no additional needs. Pt states that she has plenty of support including her SO and sister when needed. Pt denies any concerns at this time and states that she feel safe discharging back home with her mother once she is medically ready. Caleb Padilla RN, CM
--- NOTE | 2025-04-24 10:48 | PCM.PROGNOTE ---
Subjective Subjective Patient seen and examined. She had assisted by her bedside. She had no active complaints. She was admitted with a complaint of right-sided weakness and history manage for stroke rule out. She was also found to have significantly low potassium of 1 around 1.9. She is a manage for hypokalemia and stroke rule out. She says she feels better today. Her weakness has improved markedly. She denies any dizziness or lightheadedness, palpitations, nausea or vomiting. Review of systems otherwise negative. She is awaiting her MRI. Objective Data Objective Data Vital Signs: Vital Signs Temp Pulse Resp BP Pulse Ox O2 Del Method 98.2 F 75 14 127/76 H 100 Room Air 04/24/25 09:00 04/24/25 10:30 04/24/25 10:30 04/24/25 10:30 04/24/25 10:30 04/24/25 10:30 Oxygen Delivery Method Room Air Weight: 92 lb 9.506 oz Body Mass Index (BMI) 18.6 Intake & Output: Intake and Output for Last 24 Hours 04/22/25 04/23/25 04/24/25 23:59 23:59 23:59 Intake Total 900 / 900 1328.33 / 1328.33 Output Total 675 / 675 350 / 350 Balance 225 / 225 978.33 / 978.33 Lab / Micro Data 04/24/25 06:23 04/24/25 06:23 Labs: Laboratory Results - last 24 hr 04/23/25 16:07: WBC 12.9 H, RBC 4.26, Hgb 12.8, Hct 36.7 L, MCV 86.2, MCH 30.0, MCHC 34.9, RDW Std Deviation 47.9 H, RDW Coeff of Jm 15.5 H, Plt Count 524 H, MPV 9.9, Immature Gran % (Auto) 0.800, Neut % (Auto) 89.7 H, Lymph % (Auto) 5.0 L, Houghton % (Auto) 4.3, Eos % (Auto) 0.1, Baso % (Auto) 0.1, Absolute Neuts (auto) 11.6 H, Absolute Lymphs (auto) 0.65 L, Nucleated RBC % 0, PT 14.2, INR 1.1, APTT 25.3, Sodium 142, Potassium 1.5 L*, Chloride 102, Carbon Dioxide 23.7, Anion Gap 16 H, BUN 21 H, Creatinine 0.65 L, Estim Creat Clear Calc 71.67, Est GFR (MDRD) Non-Af 105, BUN/Creatinine Ratio 31.8 H, Glucose 118 H, Calcium 9.7, Magnesium 1.8, Troponin T High Sens 35 H 04/23/25 16:22: POC Glucose 114 H 04/23/25 18:25: Troponin T Hi Sens 2 Hr 33 H 04/23/25 20:38: Sodium 145, Potassium 1.9 L*, Chloride 105, Carbon Dioxide 25.7, Anion Gap 14, BUN 17, Creatinine 0.51 L, Estim Creat Clear Calc 85.59, Est GFR (MDRD) Non-Af 111, BUN/Creatinine Ratio 32.5 H, Glucose 109 H, Calcium 9.1, Troponin T Hi Sens 4Hr 35 H 04/24/25 02:06: Sodium 144, Potassium 2.2 L*, Chloride 106, Carbon Dioxide 28.6, Anion Gap 10, BUN 14, Creatinine 0.49 L, Estim Creat Clear Calc 89.08, Est GFR (MDRD) Non-Af 113, BUN/Creatinine Ratio 28.7 H, Glucose 109 H, Calcium 8.1 04/24/25 06:23: WBC 10.3, RBC 4.06 L, Hgb 12.4, Hct 35.5 L, MCV 87.4, MCH 30.5, MCHC 34.9, RDW Std Deviation 51.8 H, RDW Coeff of Jm 16.2 H, Plt Count 487 H, MPV 9.4, Immature Gran % (Auto) 0.200, Neut % (Auto) 80.9 H, Lymph % (Auto) 13.2 L, Houghton % (Auto) 4.6, Eos % (Auto) 1.0, Baso % (Auto) 0.1, Absolute Neuts (auto) 8.4 H, Absolute Lymphs (auto) 1.36, Nucleated RBC % 0, Sodium 143, Potassium 2.6 L*, Chloride 106, Carbon Dioxide 27.8, Anion Gap 9, BUN 12, Creatinine 0.48 L, Estim Creat Clear Calc 89.87, Est GFR (MDRD) Non-Af 113, BUN/Creatinine Ratio 26.1 H, Glucose 101 H, Calcium 7.9, Magnesium 2.8 H, Triglycerides 230 H, Cholesterol 159, LDL Cholesterol, Calc 79, VLDL Cholesterol 46 H, HDL Cholesterol 34 L, Cholesterol/HDL Ratio 4.70, TSH 3.230 Radiography Diagnostic Testing: Radiology Impression Brain CT 04/23/25 16:09 IMPRESSION: No acute intracranial abnormality. Reading Location: [facility] Head/Neck CTA 04/23/25 16:15 IMPRESSION: Normal CTA of the head and neck. No large vessel occlusion or stenosis. Reading Location: [facility] Brain MRI 04/24/25 17:36 IMPRESSION: No evidence of acute ischemia at this time. Reading Location: [facility] Physical Exam Const alert and no apparent distress Constitutional Narrative: Frail, thin General Appearance: cooperative HEENT normocephalic, head/scalp atraumatic, moist oral mucous membranes and oropharynx normal Eyes PERRL and EOMs intact bilaterally Neck no lymphadenopathy and supple Lymph Lymphatic: no lymphadenopathy noted and no lymphedema noted Resp normal respiratory effort, normal air movement and clear to auscultation bilaterally Cardio regular rate, regular rhythm, S1 normal heart sound, S2 normal heart sound and no murmurs GI normal to inspection, nondistended, normoactive bowel sounds, soft to palpation, non-tender and non-distended Extremity normal capillary refill, no clubbing, cyanosis or edema and no calf tenderness General Extremity: no tenderness to palpation of joints or extremities Skin General Skin Exam: no breakdown Neuro CN's II-XII intact bilaterally Motor Exam: general weakness Psych thought process normal and cooperative Appearance: appropriate Assessment & Plan Assessment/Plan (1) Acute hypokalemia: PLAN: Plan #Hypokalemia admitted with a complaint of right sided weakness and was found to have potassium of 1.5. Mg was WNL aggressively replace potassium. Does have a known history of hypokalemia. K is up to 2.6 now. Will continue to replace potassium. # #Right-sided weakness admitted with a complaint of right sided weakness which she says has improved CT brain and CTA head and neck showed no acute pathology MRI of the brain also negative for any evidence of a stroke. On aspirin and high intensity statin. 2D echo ordered. PT OT on board. Fall precautions. Neurology consulted. #Elevated troponin: Initial troponin was 35 but did not trend upwards. EKG showed no acute ST changes. She did not have any chest pain. 2D echo ordered by PCP. #GERD: on famotidine #Depression and anxiety: on citalopram and xanax #History of iron deficiency anemia: On oral iron plus vitamin C supplementation. She does follow-up with hematology. DVT prophylaxis: SCDs Charges/Coding Visit Charges Inpatient E&M: 77252 Subs Hosp L2
[2025-04-24] MEDS: Potassium Chloride Oral Tablet 20 MEQ 40 MEQ PO (11:20)
--- NOTE | 2025-04-24 11:59 | CON.PCM.NE_ITS ---
Assessment and Plan: Neuro Assessment/Plan YULISSA ALAN, is a 54-year-old woman with history of GERD, anxiety, depression who is presenting with weakness in the setting of hypokalemia. Exam and MRI are reassuring. Her symptoms have improved with correction of hypokalemia. Recommend optimizing of potassium and electrolytes, she should continue to improve. Neurology will sign off at this time. Please call with questions. I personally attended this patient and spent a total time of 45 minutes evaluating this patient including clinical assessment, review of chart, medical history imaging, and determining appropriate treatment and workup. HPI Consult Data Date of Consult: 04/24/25 HPI Narrative HPI Narrative: YULISSA ALAN, is a 54-year-old woman with history of GERD, anxiety, depression presented to [facility] ED 04/23/2025 with weakness The night before she went to bed with no issues. She woke up at 4 am feeling generally weak with more pronounced weakness in the legs, and more prominent in the right leg compared to left. In the ER she was found to have a potassium level of 1.5. No tingling/numbness MRI brain with no stroke or other acute findings CTA with no significant stenosis This morning, her potassium is 2.6 . She is feeling much better and her weakness has significantly improved, still feels all over weak PHYSICAL EXAM: Exam performed with help of the nurse/NAWAF present with patient on Tele site NEURO: AAOx3, follows commands, no aphasia/dysarthria. PERRL, EOMI, no gaze preference/nystagmus. Face symmetric, Intact facial sensation. Tongue midline. Head turning intact. Motor: All extremities antigravity. She is 5/5 with shoulder abduction, elbow flexion and extension, hip flexion and knee flexion/extension bilaterally Coordination: FTN intact bilaterally [facility] Medical History Anemia Vitamin D deficiency Benzodiazepine dependence Hyperlipidemia Hypomagnesemia Hypokalemia Wears glasses Depression Restless legs Difficulty swallowing Gastric reflux Non-smoker Shortness of breath on exertion Anxiety Acid reflux Constipation Iron deficiency anemia Abdominal pain Home Medications ?Medication ?Instructions ?Recorded ?Last Taken ?Type famotidine 40 mg tablet 40 mg PO DAILY GERD 12/26/22 Unknown History potassium chloride 20 mEq 20 meq PO BID hypokalemia Unknown History tablet,extended release citalopram 20 mg tablet 20 mg PO DAILY #30 tabs 01/30 06/25 Unknown Rx Allergy/AdvReac Type Severity Reaction Status Date / Time No Known Allergies Allergy Verified 04/23/25 15:34 Family History Mother Diabetes Father Heart disease Surgical History Hx of colonoscopy Hx of esophagogastroduodenoscopy S/P hemorrhoidectomy History of lithotripsy S/P laparoscopic cholecystectomy Social History Smoking Status: Never smoker alcohol intake: never substance use type: does not use Vital Signs Vital Signs Vital Signs: 04/23/25 15:32 04/23/25 15:59 04/23/25 16:09 Temperature 98.6 F Temperature Source Oral Pulse Rate 81 Pulse Strength Respiratory Rate 16 Respiratory Effort Normal Respiratory Depth Respiratory Pattern Normal Blood Pressure 122/71 H Blood Pressure Mean 88 Blood Pressure Source Blood Pressure Position Blood Pressure Location Pulse Ox 100 100 Oxygen Delivery Method Room Air Room Air 04/23/25 16:09 04/23/25 17:30 04/23/25 17:33 Temperature 98.6 F Temperature Source Pulse Rate 84 70 70 Pulse Strength Respiratory Rate 12 16 16 Respiratory Effort Respiratory Depth Respiratory Pattern Blood Pressure 120/70 128/71 H 128/71 H Blood Pressure Mean 86 90 90 Blood Pressure Source Blood Pressure Position Blood Pressure Location Pulse Ox 100 100 100 Oxygen Delivery Method Room Air Room Air 04/23/25 17:50 04/23/25 18:00 04/23/25 18:00 Temperature 99.3 F H Temperature Source Tympanic Pulse Rate 68 68 67 Pulse Strength Respiratory Rate 18 18 Respiratory Effort Respiratory Depth Respiratory Pattern Blood Pressure 124/81 H 117/75 Blood Pressure Mean 95 89 Blood Pressure Source Monitor Monitor Blood Pressure Position Semi-Fowlers Semi-Fowlers Blood Pressure Location Left Arm Left Arm Pulse Ox 100 100 Oxygen Delivery Method Room Air Room Air 04/23/25 18:15 04/23/25 18:30 04/23/25 18:45 Temperature Temperature Source Pulse Rate 71 69 70 Pulse Strength Respiratory Rate 18 20 H 19 H Respiratory Effort Respiratory Depth Respiratory Pattern Blood Pressure 116/67 120/73 119/71 Blood Pressure Mean 83 88 87 Blood Pressure Source Monitor Monitor Monitor Blood Pressure Position Semi-Fowlers Semi-Fowlers Semi-Fowlers Blood Pressure Location Left Arm Left Arm Left Arm Pulse Ox 100 100 100 Oxygen Delivery Method Room Air Room Air Room Air 04/23/25 19:00 04/23/25 19:00 04/23/25 20:00 Temperature Temperature Source Pulse Rate 70 73 73 Pulse Strength Respiratory Rate 21 H 19 H Respiratory Effort Respiratory Depth Respiratory Pattern Blood Pressure 119/71 122/75 H Blood Pressure Mean 87 90 Blood Pressure Source Monitor Monitor Blood Pressure Position Semi-Fowlers Semi-Fowlers Blood Pressure Location Left Arm Left Arm Pulse Ox 100 98 Oxygen Delivery Method Room Air Room Air 04/23/25 20:00 04/23/25 21:00 04/23/25 22:00 Temperature Temperature Source Pulse Rate 72 72 Pulse Strength Respiratory Rate 19 H 14 Respiratory Effort Normal Non-Labored Respiratory Depth Normal Respiratory Pattern Normal Blood Pressure 99/75 112/70 Blood Pressure Mean 83 84 Blood Pressure Source Monitor Monitor Blood Pressure Position Semi-Fowlers Semi-Fowlers Blood Pressure Location Left Arm Left Arm Pulse Ox 100 99 Oxygen Delivery Method Room Air Room Air Room Air 04/23/25 23:00 04/23/25 23:00 04/23/25 23:57 Temperature 97.3 F L Temperature Source Temporal Pulse Rate 62 70 Pulse Strength Respiratory Rate 19 H Respiratory Effort Normal Non-Labored Respiratory Depth Normal Respiratory Pattern Normal Blood Pressure 127/79 H Blood Pressure Mean 95 Blood Pressure Source Monitor Blood Pressure Position Semi-Fowlers Blood Pressure Location Left Arm Pulse Ox 100 Oxygen Delivery Method Room Air Room Air 04/24/25 00:00 04/24/25 01:00 04/24/25 02:00 Temperature 97.9 F Temperature Source Temporal Pulse Rate 60 61 65 Pulse Strength Respiratory Rate 15 13 14 Respiratory Effort Respiratory Depth Respiratory Pattern Blood Pressure 113/74 113/69 105/68 Blood Pressure Mean 87 83 80 Blood Pressure Source Monitor Monitor Monitor Blood Pressure Position Semi-Fowlers Semi-Fowlers Semi-Fowlers Blood Pressure Location Left Arm Left Arm Left Arm Pulse Ox 100 99 100 Oxygen Delivery Method Room Air Room Air Room Air 04/24/25 03:00 04/24/25 03:00 04/24/25 03:55 Temperature Temperature Source Pulse Rate 60 60 Pulse Strength Respiratory Rate 12 Respiratory Effort Normal Non-Labored Respiratory Depth Normal Respiratory Pattern Normal Blood Pressure 100/67 Blood Pressure Mean 78 Blood Pressure Source Monitor Blood Pressure Position Semi-Fowlers Blood Pressure Location Left Arm Pulse Ox 99 Oxygen Delivery Method Room Air Room Air 04/24/25 04:00 04/24/25 05:00 04/24/25 06:00 Temperature Temperature Source Pulse Rate 56 L 61 64 Pulse Strength Respiratory Rate 13 13 16 Respiratory Effort Respiratory Depth Respiratory Pattern Blood Pressure 107/71 99/63 92/57 L Blood Pressure Mean 83 75 68 Blood Pressure Source Monitor Monitor Monitor Blood Pressure Position Semi-Fowlers Semi-Fowlers Semi-Fowlers Blood Pressure Location Left Arm Left Arm Left Arm Pulse Ox 99 99 100 Oxygen Delivery Method Room Air Room Air Room Air 04/24/25 07:00 04/24/25 07:00 04/24/25 07:00 Temperature 98.2 F Temperature Source Temporal Pulse Rate 68 68 Pulse Strength Respiratory Rate 15 Respiratory Effort Respiratory Depth Respiratory Pattern Blood Pressure 120/73 Blood Pressure Mean 88 Blood Pressure Source Monitor Blood Pressure Position Semi-Fowlers Blood Pressure Location Left Arm Pulse Ox 97 100 Oxygen Delivery Method Room Air Room Air 04/24/25 08:00 04/24/25 08:00 04/24/25 09:00 Temperature 98.2 F Temperature Source Temporal Pulse Rate 68 76 Pulse Strength Respiratory Rate 15 18 Respiratory Effort Normal Non-Labored Respiratory Depth Normal Respiratory Pattern Normal Blood Pressure 127/85 H 131/79 H Blood Pressure Mean 99 96 Blood Pressure Source Monitor Monitor Blood Pressure Position Blood Pressure Location Left Arm Left Arm Pulse Ox Oxygen Delivery Method Room Air Room Air Room Air 04/24/25 09:46 04/24/25 09:58 04/24/25 10:08 Temperature Temperature Source Pulse Rate 69 67 Pulse Strength Normal (2+) Respiratory Rate 16 16 Respiratory Effort Respiratory Depth Respiratory Pattern Blood Pressure 137/73 H 130/67 H Blood Pressure Mean 94 88 Blood Pressure Source Monitor Monitor Blood Pressure Position Supine Supine Blood Pressure Location Left Arm Left Arm Pulse Ox 96 94 Oxygen Delivery Method Room Air Room Air 04/24/25 10:30 Temperature Temperature Source Pulse Rate 75 Pulse Strength Respiratory Rate 14 Respiratory Effort Respiratory Depth Respiratory Pattern Blood Pressure 127/76 H Blood Pressure Mean 93 Blood Pressure Source Monitor Blood Pressure Position Semi-Fowlers Blood Pressure Location Left Arm Pulse Ox 100 Oxygen Delivery Method Room Air Weight Weight: 42 kg Body Mass Index (BMI) 18.6 EEG Results Procedure Details EEG Procedure Details: YULISSA L ALAN is a 54 year old F with a past medical history of , who presents for evaluation of Electroencephalogram on DATE at TIME Lab / Micro Data 04/24/25 06:23 04/24/25 06:23 Labs: Laboratory Results - last 24 hr 04/23/25 16:07: WBC 12.9 H, RBC 4.26, Hgb 12.8, Hct 36.7 L, MCV 86.2, MCH 30.0, MCHC 34.9, RDW Std Deviation 47.9 H, RDW Coeff of Jm 15.5 H, Plt Count 524 H, MPV 9.9, Immature Gran % (Auto) 0.800, Neut % (Auto) 89.7 H, Lymph % (Auto) 5.0 L, [place] % (Auto) 4.3, Eos % (Auto) 0.1, Baso % (Auto) 0.1, Absolute Neuts (auto) 11.6 H, Absolute Lymphs (auto) 0.65 L, Nucleated RBC % 0, PT 14.2, INR 1.1, APTT 25.3, Sodium 142, Potassium 1.5 L*, Chloride 102, Carbon Dioxide 23.7, Anion Gap 16 H, BUN 21 H, Creatinine 0.65 L, Estim Creat Clear Calc 71.67, Est GFR (MDRD) Non-Af 105, BUN/Creatinine Ratio 31.8 H, Glucose 118 H, Calcium 9.7, Magnesium 1.8, Troponin T High Sens 35 H 04/23/25 16:22: POC Glucose 114 H 04/23/25 18:25: Troponin T Hi Sens 2 Hr 33 H 04/23/25 20:38: Sodium 145, Potassium 1.9 L*, Chloride 105, Carbon Dioxide 25.7, Anion Gap 14, BUN 17, Creatinine 0.51 L, Estim Creat Clear Calc 85.59, Est GFR (MDRD) Non-Af 111, BUN/Creatinine Ratio 32.5 H, Glucose 109 H, Calcium 9.1, T roponin T Hi Sens 4Hr 35 H 04/24/25 02:06: Sodium 144, Potassium 2.2 L*, Chloride 106, Carbon Dioxide 28.6, Anion Gap 10, BUN 14, Creatinine 0.49 L, Estim Creat Clear Calc 89.08, Est GFR (MDRD) Non-Af 113, BUN/Creatinine Ratio 28.7 H, Glucose 109 H, Calcium 8.1 04/24/25 06:23: WBC 10.3, RBC 4.06 L, Hgb 12.4, Hct 35.5 L, MCV 87.4, MCH 30.5, MCHC 34.9, RDW Std Deviation 51.8 H, RDW Coeff of Jm 16.2 H, Plt Count 487 H, MPV 9.4, Immature Gran % (Auto) 0.200, Neut % (Auto) 80.9 H, Lymph % (Auto) 13.2 L, [place] % (Auto) 4.6, Eos % (Auto) 1.0, Baso % (Auto) 0.1, Absolute Neuts (auto) 8.4 H, Absolute Lymphs (auto) 1.36, Nucleated RBC % 0, Sodium 143, Potassium 2.6 L*, Chloride 106, Carbon Dioxide 27.8, Anion Gap 9, BUN 12, Creatinine 0.48 L, Estim Creat Clear Calc 89.87, Est GFR (MDRD) Non-Af 113, BUN/Creatinine Ratio 26.1 H, Glucose 101 H, Calcium 7.9, Magnesium 2.8 H, Triglycerides 230 H, Cholesterol 159, LDL Cholesterol, Calc 79, VLDL Cholesterol 46 H, HDL Cholesterol 34 L, Cholesterol/HDL Ratio 4.70, TSH 3.230 Imaging Radiology Impression Brain CT 04/23/25 16:09 IMPRESSION: No acute intracranial abnormality. Reading Location: [facility] Head/Neck CTA 04/23/25 16:15 IMPRESSION: Normal CTA of the head and neck. No large vessel occlusion or stenosis. Reading Location: [facility] Brain MRI 04/24/25 17:36 IMPRESSION: No evidence of acute ischemia at this time. Reading Location: [facility] Active Medications Active Medications Active Medications: Current Medications Generic Name Dose Route Start Last Admin Trade Name Freq PRN Reason Stop Dose Admin Acetaminophen 650 mg 04/23/25 17:43 Acetaminophen 325 Mg Tablet PO Q6H PRN PRN Pain 1-10 Or Fever >100.7 Albuterol Sulfate 2.5 mg 04/23/25 17:43 Albuterol 2.5 Mg/3 Ml Vial.Neb. INHALATION Q2H PRN PRN SOB &/OR WHEEZING Aspirin 81 mg 04/24/25 08:00 04/24/25 07:41 Aspirin 81 Mg Tab.Chew PO 81 mg BREAKFAST [place] Administration Atorvastatin Calcium 80 mg 04/23/25 22:00 04/23/25 22:04 Atorvastatin Calcium 80 Mg Tablet PO 80 mg QHS [place] Administration Citalopram Hydrobromide 20 mg 04/24/25 10:00 04/24/25 07:41 Citalopram 20 Mg Tablet PO 20 mg DAILY [place] Administration Famotidine 40 mg 04/24/25 10:00 04/24/25 07:42 Famotidine 20 Mg Tablet PO 40 mg DAILY [place] Administration Hydralazine HCl 5 mg 04/23/25 17:43 Hydralazine 20 Mg/Ml Vial IV 04/24/25 17:43 Q30M PRN maintain BP parameters with HR <60 Sodium Chloride 250 mls @ 15 mls/hr 04/23/25 17:23 IV .[id number] PRN Saline Flush Sodium Chloride 250 mls @ 15 mls/hr 04/23/25 17:23 IV .[id number] PRN Additional IVPB Infusion Lactated Ringer's 1,000 mls @ 50 mls/hr 04/23/25 17:43 04/24/25 11:50 IV 04/24/25 13:42 50 mls/hr .Q20H [place] Infusion Potassium Chloride 10 meq in 100 mls @ 100 mls/hr 04/24/25 10:45 04/24/25 11:23 IV BOLUS 04/24/25 14:44 100 mls/hr Q1H [place] Administration Labetalol HCl 20 mg 04/23/25 16:08 Labetalol 20 Mg/4 Ml Vial IV 04/24/25 16:09 X1 PRN BLOOD PRESSURE Labetalol HCl 10 - 20 mg 04/23/25 17:43 Labetalol 20 Mg/4 Ml Vial IV 04/24/25 17:43 Q10M PRN PRN maintain BP parameters with HR >/=60 Lorazepam 0.5 mg 04/23/25 17:43 04/24/25 09:14 Lorazepam 0.5 Mg Tablet PO 0.5 mg X1 PRN Administration Anxiety with MRI Melatonin 10 mg 04/23/25 17:43 Melatonin 3 Mg Tablet PO QHS PRN PRN INSOMNIA Potassium Chloride 20 meq 04/24/25 22:00 Potassium Chloride Oral Soln 20 Meq/15 Ml Udc PO BID [place] Senna/Docusate Sodium 2 tablet 04/23/25 17:43 Senna/Docusate Sodium 1 Tablet PO BID PRN PRN Constipation Sodium Chloride 10 - 40 ml 04/23/25 17:23 0.9% Saline Lock 10 Ml Syringe IV UD PRN SALINE FLUSH NIHSS NIHSS Nursing Documentation NIHSS Nursing Documentation: NIHSS: Ischemic Stroke/TIA Start: 04/23/25 17:43 Text: For PCU Patients: NIH and Neuro Check every 4 Status: Active hours, PRN and with change in RN caregiver. Freq: [id number] Protocol: Activity Type Activity Date Activity User E-sign Co-sign Detail Recorded Client Recorded Date Recorded By Document 04/24/25 09:58 LW [id number] 04/24/25 10:25 LW 04/24/25 09:58 NIH Stroke Scale [NIHSS] A score of 0 is normal or asymptomatic . Total possible score is 42. Inpatient: RN or Physician to activate a stroke alert for onset of new stroke symptoms or with NIHSS increase >/= 3 points. Following change in neurological status, NIHSS will be performed per physician order or more frequently PRN. -1a. Level of Consciousness 0 - Alert; keenly responsive -1b. LOC Questions 0 - Answers BOTH questions correctly -1c. LOC Commands 0 - Performs BOTH tasks correctly -2. Best Gaze 0 - Normal -3. Visual 0 - No visual loss -4. Facial Palsy 0 - Normal symmetrical movements -5a. Left Arm 0 - No drift; arm holds 90 ( or 45) degrees for full 10 seconds -5b. Right Arm 0 - No drift; arm holds 90 ( or 45) degrees for full 10 seconds -6a. Left Leg 0 - No drift; leg holds 30- degree position for full 5 seconds -6b. Right Leg 1 - Drift; leg falls by the end of 5- seconds, but does not hit bed -7. Limb Ataxia 0 - Absent -8. Sensory 0 - Normal; no sensory loss -9. Best Language 0 - No aphasia; normal -10. Dysarthria 0 - Normal -11. Extinction and Inattention 0 - No abnormality -Total 1 Query Text:A score of 0 is normal or asymptomatic. Total possible score is 42 . ED: Notify Physician for NIHSS increase by > / = 3 points. Inpatient: RN or Physician to activate a stroke alert for NIHSS increase of > / = 3 points.
[2025-04-24 17:21] LABS: Anion Gap 9 (5-15); BUN 9 mg/dL (4-19); BUN/Creat Ratio 18.4 RATIO (10-20); Calcium,Total 7.6 mg/dL (7.6-11.0); Carbon Dioxide 27.9 mmol/L (21.0-32.0); Chloride 108 mmol/L (98-108); Estimated Creatinine Clearance 89.87 ml/min (50-250); Glucose 95 mg/dL (70-99); Potassium 2.9 mmol/L (3.3-5.1)
--- NOTE | 2025-04-24 17:36 | MRI_ITS ---
PROCEDURE: BRAIN WITHOUT CONTRAST 04/24/2025 REASON FOR EXAM: SUSPECT CVA, RLE WEAKNESS TECHNIQUE: BRAIN WITHOUT CONTRAST Multiplanar and multisequence images were obtained. COMPARISON: April 23, 2025 FINDINGS: Brain: No evidence of hemorrhage or acute ischemia. No restricted diffusion. White matter appears normal. No significant volume loss. Ventricles: No hydrocephalus. Major Intracranial Vessels: Unremarkable. Correlate with CT angiogram done the same day. Sinuses: Clear Mastoids: Clear MRI/Brain without Contrast IMPRESSION: No evidence of acute ischemia at this time. Reading Location: [id number]
[2025-04-24] MEDS: Potassium Chloride Oral Soln 20 MEQ/15 ML UDC PO (21:08)
[2025-04-24] MEDS: MELATONIN 10 MG TABLET PO (22:39)
[2025-04-25] VITALS (19 sets, daily range): BP systolic 99–141; BP diastolic 61–88; PULSE 55–82; RESP 12–21; TEMP 36.5–37.1; O2SAT 98–100; BMI 19.4
[2025-04-25 04:26] LABS: Hematocrit 33.5 % (37-47); Hemoglobin 11.5 g/dL (12.0-15.0); Immature Granulocytes Count 0.040 X10^3/uL (0.0-0.0); Mean Corp Hgb Conc 34.3 g/dL (32-36); Mean Corpuscular Volume 89.1 fL (81-99); Mean Platelet Vol. 9.3 fl (6.2-12.0); NRBC Flagged by Analyzer 0 % (0-5); Platelet Count 422 K/mm3 (150-450); RBC Distribution Width CV 16.8 % (11.6-14.6); RBC Distribution Width SD 54.1 fl (35.1-43.9); Red Blood Count 3.76 M/mm3 (4.2-5.4); White Blood Count 8.6 K/mm3 (4.4-11.0)
[2025-04-25 04:45] LABS: Anion Gap 7 (5-15); BUN 10 mg/dL (4-19); BUN/Creat Ratio 21.6 RATIO (10-20); Calcium,Total 7.5 mg/dL (7.6-11.0); Carbon Dioxide 29.7 mmol/L (21.0-32.0); Chloride 108 mmol/L (98-108); Estimated Creatinine Clearance 95.86 ml/min (50-250); Glucose 110 mg/dL (70-99); Potassium 3.0 mmol/L (3.3-5.1)
[2025-04-25] MEDS: 0.9% Saline Lock 10 ML Syringe IV (05:39)
[2025-04-25] MEDS: Potassium Chloride 10mEq/100mL 10 MEQ/100 ML IV.SOLN. 100 MEQ IV BOLUS ×4 (05:44→09:13)
[2025-04-25] MEDS: Potassium Chloride Oral Soln 20 MEQ/15 ML UDC PO ×2 (10:22→21:54)
--- NOTE | 2025-04-25 10:49 | PN_ITS ---
Subjective Subjective Patient seen and examined. Her sister was by her bed. She had no active complaints. Her potassium sitll remains low at 3. Her weakness has improved though. Review of systems is othewise negatige. Objective Data Objective Data Vital Signs: Vital Signs Temp Pulse Resp BP Pulse Ox O2 Del Method 98.2 F 77 20 H 121/75 H 100 Room Air 04/25/25 08:00 04/25/25 09:00 04/25/25 09:00 04/25/25 09:00 04/25/25 09:00 04/25/25 09:00 Oxygen Delivery Method Room Air Weight: 96 lb 8.999 oz Body Mass Index (BMI) 19.4 Intake & Output: Intake and Output for Last 24 Hours 04/23/25 04/24/25 04/25/25 23:59 23:59 23:59 Intake Total 900 / 900 2620.00 / 2620.00 400 / 400 Output Total 675 / 675 350 / 350 Balance 225 / 225 2270.00 / 2270.00 400 / 400 Lab / Micro Data 04/25/25 04:07 04/25/25 04:07 Labs: Laboratory Results - last 24 hr 04/24/25 16:40: Sodium 145, Potassium 2.9 L, Chloride 108, Carbon Dioxide 27.9, Anion Gap 9, BUN 9, Creatinine 0.48 L, Estim Creat Clear Calc 89.87, Est GFR (MDRD) Non-Af 113, BUN/Creatinine Ratio 18.4, Glucose 95, Calcium 7.6 04/25/25 04:07: WBC 8.6, RBC 3.76 L, Hgb 11.5 L, Hct 33.5 L, MCV 89.1, MCH 30.6, MCHC 34.3, RDW Std Deviation 54.1 H, RDW Coeff of Jm 16.8 H, Plt Count 422, MPV 9.3, Immature Gran % (Auto) 0.500, Neut % (Auto) 78.8 H, Lymph % (Auto) 14.9 L, [place] % (Auto) 4.1, Eos % (Auto) 1.6, Baso % (Auto) 0.1, Absolute Neuts (auto) 6.8, Absolute Lymphs (auto) 1.28, Nucleated RBC % 0, Sodium 144, Potassium 3.0 L , Chloride 108, Carbon Dioxide 29.7, Anion Gap 7, BUN 10, Creatinine 0.45 L, Estim Creat Clear Calc 95.86, Est GFR (MDRD) Non-Af 115, BUN/Creatinine Ratio 21.6 H, Glucose 110 H, Calcium 7.5 L Radiography Diagnostic Testing: Radiology Impression Echocardiogram 04/23/25 17:36 Interpretation Summary Normal LV size. Left ventricular systolic function is normal. The left ventricular ejection fraction is 60 %. Bubble contrast study is negative for PFO/ASD. Ordering Physician: Erika Cardona Referring Physician: Garcia Barfield Chi Performed By: Meaghan Mcmahon RDCS Physical Exam Const alert and no apparent distress Constitutional Narrative: Frail, thin General Appearance: cooperative HEENT normocephalic, head/scalp atraumatic, moist oral mucous membranes and oropharynx normal Eyes PERRL and EOMs intact bilaterally Neck no lymphadenopathy and supple Lymph Lymphatic: no lymphadenopathy noted and no lymphedema noted Resp normal respiratory effort, normal air movement and clear to auscultation bilaterally Cardio regular rate, regular rhythm, S1 normal heart sound, S2 normal heart sound and no murmurs GI normal to inspection, nondistended, normoactive bowel sounds, soft to palpation, non-tender and non-distended Extremity normal capillary refill, no clubbing, cyanosis or edema and no calf tenderness General Extremity: no tenderness to palpation of joints or extremities Skin General Skin Exam: no breakdown Neuro CN's II-XII intact bilaterally Motor Exam: general weakness Psych thought process normal and cooperative Appearance: appropriate Assessment & Plan Assessment/Plan (1) Acute hypokalemia: PLAN: Plan #Hypokalemia * admitted with a complaint of right sided weakness and was found to have potassium of 1.5. Mg was WNL * aggressively replace potassium. Does have a known history of hypokalemia. * potassium is 3 today. Continue to replace aggresisvely * In light of her weakness, there is a concern for hypokalemic periodic paralysis * will benefit from follow up with nephrology on outpatient basis * * # #Right-sided weakness * admitted with a complaint of right sided weakness which she says has improved * CT brain and CTA head and neck showed no acute pathology * MRI of the brain also negative for any evidence of a stroke. * On aspirin and high intensity statin. 2D echo ordered. * PT OT on board. Fall precautions. Neurology consulted. * #Elevated troponin: Initial troponin was 35 but did not trend upwards. EKG showed no acute ST changes. She did not have any chest pain. 2D echo ordered by PCP. #GERD: on famotidine #Depression and anxiety: on citalopram and xanax #History of iron deficiency anemia: On oral iron plus vitamin C supplementation. She does follow-up with hematology. DVT prophylaxis: SCDs Disposition: for likely DC tomorrow Charges/Coding Visit Charges Inpatient E&M: 32147 Subs Hosp L2
[2025-04-25] MEDS: MELATONIN 10 MG TABLET PO (20:05)
[2025-04-25] MEDS: Senna/Docusate Sodium 1 Tablet 2 TABLET PO (20:05)
[2025-04-26 02:09] VITALS: BMI 19.4
[2025-04-26 04:00] VITALS: BP 123/70; PULSE 70; RESP 16; TEMP 36.4; O2SAT 99
[2025-04-26 06:00] VITALS: BMI 19.8
[2025-04-26 06:31] LABS: Anion Gap 8 (5-15); BUN 6 mg/dL (4-19); BUN/Creat Ratio 15.4 RATIO (10-20); Calcium,Total 8.3 mg/dL (7.6-11.0); Carbon Dioxide 29.6 mmol/L (21.0-32.0); Chloride 105 mmol/L (98-108); Estimated Creatinine Clearance 114.78 ml/min (50-250); Glucose 116 mg/dL (70-99); Potassium 3.2 mmol/L (3.3-5.1)
[2025-04-26 07:33] VITALS: O2SAT 95
[2025-04-26 07:59] LABS: Magnesium 1.9 mg/dL (1.5-2.2)
[2025-04-26] MEDS: Potassium Chloride 10mEq/100mL 10 MEQ/100 ML IV.SOLN. 100 MEQ IV BOLUS ×4 (08:24→12:30)
[2025-04-26] MEDS: 0.9% Normal Saline (250mL Bag) 250 ML 15 ML IV (08:24)
[2025-04-26 10:00] VITALS: BP 130/78; PULSE 78; RESP 16; TEMP 36.6; O2SAT 99
[2025-04-26] MEDS: Potassium Chloride Oral Soln 20 MEQ/15 ML UDC PO (10:18)
--- NOTE | 2025-04-26 14:06 | DS.PCM_ITS ---
Providers Date of Admission: 04/23/25 Date of Discharge: 04/26/25 Primary Care Physician: Dr. Garcia Barfield MD Consultations 04/23/25 17:43 Consult: Tele-Neurology Routine Consulting Provider: [facility] Reason for Consult: Acute Ischemic Stroke/TIA EMERGENT Consult: No MD Notified: Yes Date Notified: 04/23/25 Time Notified: 19:20 Method of Notification: Telephone, Fax Nursing Unit Staff Notify [facility] of Tele-Neurology Consult: Yes Reason For Visit: HYPOKALEMIA, CONCERN FOR CVA Diagnosis Discharge Diagnosis (1) Acute hypokalemia: Status: Acute Code(s): E87.6 - Hypokalemia Plan #Hypokalemia * admitted with a complaint of right sided weakness and was found to have potassium of 1.5. Mg was WNL * aggressively replace potassium. Does have a known history of hypokalemia. * potassium is 3 today. Continue to replace aggresisvely * In light of her weakness, there is a concern for hypokalemic periodic paralysis * will benefit from follow up with nephrology on outpatient basis * * # #Right-sided weakness * admitted with a complaint of right sided weakness which she says has improved * CT brain and CTA head and neck showed no acute pathology * MRI of the brain also negative for any evidence of a stroke. * On aspirin and high intensity statin. 2D echo ordered. * PT OT on board. Fall precautions. Neurology consulted. * #Elevated troponin: Initial troponin was 35 but did not trend upwards. EKG showed no acute ST changes. She did not have any chest pain. 2D echo ordered by PCP. #GERD: on famotidine #Depression and anxiety: on citalopram and xanax #History of iron deficiency anemia: On oral iron plus vitamin C supplementation. She does follow-up with hematology. DVT prophylaxis: SCDs Disposition: for likely DC tomorrow Medications at Discharge Home Medications famotidine 40 mg tablet 40 mg PO DAILY GERD 12/26/22 potassium chloride 20 mEq tablet,extended release (K-Tab) 60 meq (3 x 20 mEq) PO DAILY 30 days #90 tabs 04/26/25 citalopram 20 mg tablet 20 mg PO DAILY #90 tabs 04/27/25 Hospital Course Operations None Procedures 2-D Echocardiogram Summary of Care Provided Minutes Spent on Discharge: 45 Hospital Course: Patient is a 54-year-old female with past medical history as outlined who was admitted to the ED on 04/23/2025 with a complaint of bilateral lower extremity weakness worse in her right leg than the left. As started at around 4 AM on the day of admission. On admission in the ED she was also found to have right upper extremity drift. CT of the brain showed no acute intracranial pathology and CTA of the head and neck showed no acute hemodynamically significant stenosis. BMP was significant for potassium of 1.5. She was admitted to be worked up for stroke. She had MRI of the brain which showed no evidence of a stroke. Potassium was aggressively replaced. Magnesium was also low and was also replaced. Potassium gradually improved and she felt much better. On day of discharge potassium was 3 and was aggressively replaced again. Repeat potassium was pending at time of discharge. Of note, she did have 2D echo which showed EF of 60% with normal left ventricular systolic function and negative bubble study. She was discharged on 04/26/2025 with p.o. potassium supplementation 40meq daily. She was referred to nephrology on outpatient basis to be worked up for possible hypokalemic periodic Paralysis. Patient seen and examined prior to discharge. History was by her bedside. She had no active complaints and review of systems otherwise negative. Labs and vitals reviewed. Home medication renal consult. Her potassium on day of discharge was 5.4. She was given kayexalate and potassium came down to 3.7 prior to discharge. She was therefore discharged on PO potassium chloride 40meq dily. Physical Exam Const alert, oriented x3 and no apparent distress Constitutional Narrative: Frail, thin General Appearance: cooperative and comfortable HEENT normocephalic, head/scalp atraumatic, hearing grossly normal bilaterally, moist oral mucous membranes and oropharynx normal Mouth: oral and palatal mucosa normal Eyes PERRL and EOMs intact bilaterally Neck no lymphadenopathy and supple Lymph Lymphatic: no lymphadenopathy noted and no lymphedema noted Resp normal respiratory effort, normal air movement and clear to auscultation bilaterally Cardio regular rate, regular rhythm, S1 normal heart sound, S2 normal heart sound and no murmurs GI normal to inspection, nondistended, normoactive bowel sounds, soft to palpation, non-tender and non-distended Extremity normal to inspection, full ROM, normal capillary refill, no clubbing, cyanosis or edema and no calf tenderness General Extremity: no tenderness to palpation of joints or extremities Skin General Skin Exam: no breakdown Neuro oriented x3 and CN's II-XII intact bilaterally Motor Exam: general weakness Psych thought process normal and cooperative Appearance: appropriate Weight / BMI Weight Weight: 98 lb 8.746 oz Body Mass Index (BMI) 19.8 ABG / Lab / Microbiology Data 04/25/25 04:07 04/26/25 17:31 Laboratory: Laboratory Results - last 24 hr 04/26/25 17:31: Potassium 3.7 D/C Instructions Discharge Activity: Return to Normal Activity Weight Bearing Status: Weight bearing as tolerated Call your doctor if you observe: Fever of 101 or Higher and - (worsening weakness) DC O2, CPAP, BIPAP Needs Home O2 Discharge instructions: No DC home with Oxygen: No Meaningful Use Info Meaningful Use Meaningful Use Diagnoses (Choose all that apply): None applicable Discharge Plan Admission Admit Date/Time: 04/23/25 17:11 Primary Reason for Your Visit: RLE weakness, hpokalemia Attending Provider: Helen Edward Primary Care Provider: Garcia Barfield Chi Consulting Providers: Erika Cardona Instructions Patient Instructions: High Potassium Diet Dc, ED Potassium-Rich Foods Discharge Orders/Prescriptions Prescriptions: New potassium chloride [K-Tab] 20 mEq tablet extended release 60 meq PO DAILY 30 Days Qty: 90 1RF Continued famotidine 40 mg tablet 40 mg PO DAILY Discontinued potassium chloride 20 mEq tablet extended release 20 meq PO BID No Action citalopram 20 mg tablet 20 mg PO DAILY Qty: 90 1RF Referrals / Follow Up: Zoe Washington MD [Med Staff - Consulting] - Within 2 Weeks (see to establish care for severe hypokalemia) Garcia Barfield Chi, MD [Primary Care Provider] - Within 1 Week Disposition Disposition (needs filled in before D/C Order can be placed): Home, Self Care Charges/Coding Visit Charges Inpatient E&M: 24695 Disch Hosp >30min
[2025-04-26 14:32] LABS: Potassium 5.4 mmol/L (3.3-5.1)
--- NOTE | 2025-04-26 15:11 | PN_ITS ---
Subjective Subjective Patient seen and examined. She had no active complaints and review of systems was otherwise negative. Plan was to discharge her. Potassium was 3 today and after she got some 40 mEq of K riders of potassium went up to 5.4. Discharge therefore canceled and patient will be given a dose of Kayexalate. Objective Data Objective Data Vital Signs: Vital Signs Temp Pulse Resp BP Pulse Ox O2 Del Method 97.9 F 78 16 130/78 H 99 Room Air 04/26/25 10:00 04/26/25 10:00 04/26/25 10:00 04/26/25 10:00 04/26/25 10:00 04/26/25 10:00 Oxygen Delivery Method Room Air Weight: 98 lb 8.746 oz Body Mass Index (BMI) 19.8 Intake & Output: Intake and Output for Last 24 Hours 04/24/25 04/25/25 04/26/25 23:59 23:59 23:59 Intake Total 2620.00 / 2620.00 700 / 700 1086.66 / 1086.66 Output Total 350 / 350 Balance 2270.00 / 2270.00 700 / 700 1086.66 / 1086.66 Lab / Micro Data 04/25/25 04:07 04/26/25 13:40 Labs: Laboratory Results - last 24 hr 04/26/25 05:33: Sodium 143, Potassium 3.2 L, Chloride 105, Carbon Dioxide 29.6, Anion Gap 8, BUN 6, Creatinine 0.40 L, Estim Creat Clear Calc 114.78, Est GFR (MDRD) Non-Af 118, BUN/Creatinine Ratio 15.4, Glucose 116 H, Calcium 8.3, Magnesium 1.9 04/26/25 13:40: Potassium 5.4 H Physical Exam Const alert and oriented x3 Constitutional Narrative: Frail, thin General Appearance: cooperative and comfortable HEENT normocephalic, head/scalp atraumatic, hearing grossly normal bilaterally, moist oral mucous membranes and oropharynx normal Eyes PERRL and EOMs intact bilaterally Neck no lymphadenopathy and supple Lymph Lymphatic: no lymphadenopathy noted and no lymphedema noted Resp normal respiratory effort, normal air movement and clear to auscultation bilaterally Cardio regular rate, regular rhythm, S1 normal heart sound, S2 normal heart sound and no murmurs GI normal to inspection, nondistended, normoactive bowel sounds, soft to palpation, non-tender and non-distended Extremity normal to inspection, full ROM, normal capillary refill, no clubbing, cyanosis or edema and no calf tenderness General Extremity: no tenderness to palpation of joints or extremities Skin General Skin Exam: no breakdown Neuro oriented x3 and CN's II-XII intact bilaterally Motor Exam: general weakness Psych thought process normal and cooperative Appearance: appropriate Assessment & Plan Assessment/Plan (1) Acute hypokalemia: PLAN: Plan #Hypokalemia * admitted with a complaint of right sided weakness and was found to have potassium of 1.5. Mg was WNL * aggressively replace potassium. Does have a known history of hypokalemia. * potassium is 3 today. Continue to replace aggresisvely * In light of her weakness, there is a concern for hypokalemic periodic paralysis * will benefit from follow up with nephrology on outpatient basis * #Hyperkalemia due to potassium replacement * Patient received potassium today as her potassium was 3 this morning. Potassium repeat now 5.4. Discharge therefore canceled and patient being given a dose of Kayexalate 15 g x 1. * # #Right-sided weakness * admitted with a complaint of right sided weakness which she says has improved * CT brain and CTA head and neck showed no acute pathology * MRI of the brain also negative for any evidence of a stroke. * On aspirin and high intensity statin. 2D echo ordered. * PT OT on board. Fall precautions. Neurology on board and recommend no further workup * #Elevated troponin: Initial troponin was 35 but did not trend upwards. EKG showed no acute ST changes. She did not have any chest pain. 2D echo showed EF of 60% with no regional wall motion abnormalities noted. #GERD: on famotidine #Depression and anxiety: on citalopram and xanax #History of iron deficiency anemia: On oral iron plus vitamin C supplementation. She does follow-up with hematology. DVT prophylaxis: SCDs Disposition: * Patient was to be discharged today but this has been canceled in light of her potassium now going up. If she has a repeat potassium check after she has a bowel movement from the Kayexalate and is less than 5 then she can be discharged. * Otherwise we will plan for discharge tomorrow. Charges/Coding Visit Charges Inpatient E&M: 26667 Subs Hosp L2
[2025-04-26 15:18] VITALS: BP 148/81; PULSE 70; RESP 16; TEMP 37.1; O2SAT 99
[2025-04-26 18:20] LABS: Potassium 3.7 mmol/L (3.3-5.1)
[2025-04-26 18:23] VITALS: BP 129/80; PULSE 79; RESP 18; TEMP 36.6; O2SAT 100
== END 2025-04-26 18:58 | disposition home or self-care (01) | DRG 425 ==
LOC: ED 16:54 → ICU 17:20 → MS3 04-25 16:27
PROVIDERS: Admitting Provider Internal Medicine; Emergency Provider Emergency Medicine; PCP Family Medicine Geriatric Medicine; Visit Provider Student in an Organized Health Care Education/Training Program
DX: E87.6 Hypokalemia (principal); D50.9 Iron deficiency anemia, unspecified; F32.A Depression, unspecified; K21.9 Gastro-esophageal reflux disease without esophagitis; E78.5 Hyperlipidemia, unspecified; E87.5 Hyperkalemia; F41.1 Generalized anxiety disorder; R79.89 Other specified abnormal findings of blood chemistry; Z79.899 Other long term (current) drug therapy
CPT/HCPCS: 36415; 70450; 70496; 70498; 70551; 80048; 80061; 82962; 83735; 84132; 84443; 84484; 85025; 85610; 85730; 86617; 93005; 93306; 94762; 97116; 97162; 97166; 97530; 97535; 97802; 99285; Q9967; A4216

== ENCOUNTER → 2025-04-30 | Outpatient (CLI) | payer MEDICAID, SELFPAY ==
[2025-04-30 16:55] LABS: Anion Gap 9 (5-15); BUN 5 mg/dL (4-19); BUN/Creat Ratio 8.2 RATIO (10-20); Calcium,Total 9.5 mg/dL (7.6-11.0); Carbon Dioxide 25.6 mmol/L (21.0-32.0); Chloride 99 mmol/L (98-108); Glucose 87 mg/dL (70-99); Potassium 5.6 mmol/L (3.3-5.1)
== END | disposition home or self-care (01) ==
LOC: POLAB3 15:49
PROVIDERS: PCP Family Medicine Geriatric Medicine; Visit Provider Family Medicine Geriatric Medicine
DX: E87.6 Hypokalemia (principal)
CPT/HCPCS: 36415; 80048

== ENCOUNTER → 2025-06-03 | Outpatient (CLI) | payer MEDICAID, SELFPAY ==
--- NOTE | 2025-06-03 14:31 | BI_ITS ---
EXAM: SCRN MAMM (CAD)W/NBA BILAT DATE: 06/03/2025 CLINICAL HISTORY: F, Age 54 y/o , ANNUAL SCREENING TECHNIQUE: Procedure Code: BISMWCADBTOM Modality: MG Procedure: SCRN MAMM (CAD)W/NBA BILAT COMPARISON: Prior exam(s) were compared FINDINGS: TISSUE DENSITY: The breasts are extremely dense, which lowers the sensitivity of mammography. Bilateral Breast Mammographic Findings: Right breast: There is questionable mass in the upper slightly inner right breast mid depth. Recommend additional imaging with spot compression views and possible ultrasound scanning in the upper inner right breast. Left breast: No suspicious masses, calcifications or other abnormalities are identified. BI/SCRN MAMM (CAD)W/NBA BILAT IMPRESSION: Incomplete evaluation. Additional imaging is recommended of the right breast a s described above. OVERALL FINAL ASSESSMENT BI-RADS 0: INCOMPLETE - NEED ADDITIONAL IMAGING EVALUATION. RECOMMENDATION: Additional Views obtained/call backs A letter with findings and recommendations will be mailed to the patient. Reading Location: [place] [id number]
== END | disposition home or self-care (01) ==
LOC: OPBI 14:31
PROVIDERS: PCP Family Medicine Geriatric Medicine; Referring Provider Internal Medicine Hematology & Oncology; Visit Provider Internal Medicine Hematology & Oncology
DX: Z12.31 Encounter for screening mammogram for malignant neoplasm of breast (principal)
CPT/HCPCS: 77063; 77067

== ENCOUNTER → 2025-06-10 | Outpatient (CLI) | payer MEDICAID, SELFPAY ==
--- NOTE | 2025-06-10 12:45 | US_ITS ---
PROCEDURE: BREAST LIMITED UNILATERAL 06/10/2025 REASON FOR EXAM: F, Age 54 y/o , NODULE Abnormal screening mammogram. COMPARISON: Prior mammogram dated June 04, 2025.. TECHNIQUE: Procedure Code: USBRSTLIMIT Modality: US Procedure: BREAST LIMITED UNILATERAL FINDINGS: The upper inner quadrant of the right breast was examined with ultrasound. There is evidence of dense fibroglandular tissue. No solid or cystic mass is seen. US/Breast Limited Unilateral IMPRESSION: No sonographic abnormality is present. BI-RADS 1: NEGATIVE RECOMMENDATION: Routine annual follow-up in 1 Year Reading Location: [id number]
--- NOTE | 2025-06-10 12:45 | BI_ITS ---
EXAM: DIAG MAMM W/CAD, UNILAT 06/10/2025 CLINICAL HISTORY: F, Age 54 y/o , RIGHT NODULE TECHNIQUE: Procedure Code: [id number] Modality: MG Procedure: DIAG MAMM W/CAD, UNILAT.. Compression spot views of the right breast were obtained. COMPARISON: Prior exam(s) dated June 04, 2025.. FINDINGS: TISSUE DENSITY: The breasts are extremely dense, which lowers the sensitivity of mammography. Bilateral Breast Mammographic Findings: No significant masses, calcifications or other abnormalities are identified. No suspicious masses, areas of developing architectural distortion, or suspicious calcifications. There has been no significant interval change. BI/DIAG MAMM W/CAD, UNILAT IMPRESSION: No abnormality is seen. Sonographic correlation recommended. OVERALL FINAL ASSESSMENT BI-RADS 0: INCOMPLETE - NEED ADDITIONAL IMAGING EVALUATION. RECOMMENDATION: Ultrasound Recommended A letter with findings and recommendations will be mailed to the patient. Reading Location: [facility]
== END | disposition home or self-care (01) ==
LOC: OPBI 12:44
PROVIDERS: PCP Family Medicine Geriatric Medicine; Referring Provider Internal Medicine Hematology & Oncology; Visit Provider Internal Medicine Hematology & Oncology
DX: N63.10 Unspecified lump in the right breast, unspecified quadrant (principal); R92.8 Other abnormal and inconclusive findings on diagnostic imaging of breast
CPT/HCPCS: 77061; 76642; 77065; G0279

== ENCOUNTER → 2025-07-01 | Outpatient (CLI) | payer MEDICAID, SELFPAY ==
[2025-07-01 13:31] LABS: Hematocrit 38.1 % (37-47); Hemoglobin 12.3 g/dL (12.0-15.0); Immature Granulocytes Count 0.010 X10^3/uL (0.0-0.0); Mean Corp Hgb Conc 32.3 g/dL (32-36); Mean Corpuscular Volume 94.8 fL (81-99); Mean Platelet Vol. 9.8 fl (6.2-12.0); NRBC Flagged by Analyzer 0 % (0-5); Platelet Count 359 K/mm3 (150-450); RBC Distribution Width CV 13.7 % (11.6-14.6); RBC Distribution Width SD 47.9 fl (35.1-43.9); Red Blood Count 4.02 M/mm3 (4.2-5.4); White Blood Count 5.1 K/mm3 (4.4-11.0)
[2025-07-01 14:28] LABS: Cholesterol 222 mg/dL (<=200); Low Density Lipoprotein Calc. 112 mg/dL; Triglycerides 95 mg/dL; Very Low Density Lipoprotein 19 mg/dL (5-40); cholesterol:hdl ratio screen 2.43
[2025-07-01 14:29] LABS: AST(SGOT) 21 U/L (<=31); Alanine Aminotransfer ALT/SGPT 12 U/L (<=34); Albumin, Serum 4.1 g/dL (3.5-5.0); Alkaline Phosphatase 56 U/L (35-104); Anion Gap 9 (5-15); BUN 15 mg/dL (4-19); BUN/Creat Ratio 19.9 RATIO (10-20); Calcium,Total 9.2 mg/dL (7.6-11.0); Carbon Dioxide 26.8 mmol/L (21.0-32.0); Chloride 103 mmol/L (98-108); Globulin 2.9 g/dL (2.2-4.2); Glucose 98 mg/dL (70-99); Potassium 4.5 mmol/L (3.3-5.1)
[2025-07-01 21:23] LABS: Xtra Tube Kwok EXTRA TUBE
== END | disposition home or self-care (01) ==
LOC: POLAB3 13:21
PROVIDERS: PCP Family Medicine Geriatric Medicine; Visit Provider Family Medicine Geriatric Medicine
DX: E03.9 Hypothyroidism, unspecified (principal); E78.5 Hyperlipidemia, unspecified; R53.83 Other fatigue
CPT/HCPCS: 36415; 80053; 80061; 84443; 85025

== ENCOUNTER → 2025-07-14 | Outpatient (CLI) | payer MEDICAID, SELFPAY ==
--- NOTE | 2025-07-14 12:25 | US_ITS ---
PROCEDURE: TRANSVAGINAL NON- 07/14/2025 REASON FOR EXAM: MENOPAUSAL BLEEDING TECHNIQUE: Procedure Code: USTVAG Modality: US Procedure: TRANSVAGINAL NON- COMPARISON: None FINDINGS: Measurements: Uterus: 7.2 cm x 3 cm x 3.8 cm with a volume of 43 mL Endometrial Thickness: 4 mm. It is heterogeneous. Right Ovary: 1.9 cm x 1.7 cm x 1.1 cm with a volume of 1.8 mL. Left Ovary: 1.3 cm x 1 cm x 0.8 cm with a volume of 0.5 mL. Uterus: Heterogeneous fibroid uterus. The largest fibroid is pedunculated and measures 1.7 cm 1.6 cm 1.4 cm. Endometrium: Endometrial thickening measuring 4 mm. Right ovary: Normal size and echotexture. Left ovary: Normal size and echotexture. Other: No large pelvic mass identified. US/Transvaginal Non- IMPRESSION: Fibroid uterus as described. Endometrial thickening. Reading Location: [place] [id number]
== END | disposition home or self-care (01) ==
LOC: OPUS 12:24
PROVIDERS: PCP Family Medicine Geriatric Medicine; Referring Provider Family Medicine Geriatric Medicine; Visit Provider Family Medicine Geriatric Medicine
DX: N92.4 Excessive bleeding in the premenopausal period (principal)
CPT/HCPCS: 76830

== ENCOUNTER → 2025-07-22 | Outpatient (CLI) | payer MEDICAID, SELFPAY ==
[2025-07-26 16:08] LABS: HPV APTIMA, High Risk Negative (Negative)
== END | disposition home or self-care (01) ==
LOC: LABSPEC 10:43
PROVIDERS: PCP Family Medicine Geriatric Medicine; Visit Provider Nurse Practitioner Women's Health
DX: Z12.4 Encounter for screening for malignant neoplasm of cervix (principal)
CPT/HCPCS: 87624; 88175; G0145

== ENCOUNTER 2025-09-01 12:36 | Day surgery (SDC) | payer MEDICAID, SELFPAY ==
--- NOTE | 2025-08-24 10:06 | PAT.ANESEVAL ---
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 When Was Last Pacemaker Check QUESTION #4 FULL TEXT: You/Your Family Experience fever (hyperthermia) with Anesthesia Last Oral Intake Last Oral intake: Last Oral Intake NPO since Meds taken in AM with sips of water? Meds patient instructed to take am of surgery PONV PONV - ambulance attendant: PONV - ambulance attendant Female Yes 08/24/25 09:15 HX of Motion Sickness No 08/24/25 09:15 HX of N/V After Surgery No 08/24/25 09:15 Non-Smoker Yes 08/24/25 09:15 Duration of Surgery greater No 08/24/25 09:15 than 60 minutes Number of Risk Factors 2 08/24/25 09:15 PONV Score Moderate Risk 08/24/25 09:15 Height & Weight Height & Weight: Anesthesia: Height & Weight Height 4 ft 11 in 07/22/25 08:42 Respiratory Assessment Respiratory Assessment - ambulance attendant: Respiratory Tract Infection Hx - ambulance attendant Hx Respiratory Tract Infection No 08/24/25 09:15 STOP Sleep Apnea STOP Sleep Apnea - ambulance attendant: STOP Sleep Apnea - ambulance attendant Hx Hypertension No 08/24/25 09:15 Hx Sleep Apnea No 08/24/25 09:15 CPAP BIPAP Do you snore loudly (louder No 08/24/25 09:15 than talking or can be heard Do you often feel tired/ No 08/24/25 09:15 fatigued/ sleepy during daytime? Has anyone observed you stop No 08/24/25 09:15 breathing during sleep? STOP Results Negative 08/24/25 09:15 QUESTION #5 FULL TEXT : Do you snore loudly (louder than talking or can be heard through closed doors)? Tobacco Use History Tobacco Use History - ambulance attendant: Tobacco Use History - ambulance attendant Tobacco Use Non-smoker 04/26/25 02:09 Smoking Status Never smoker 08/24/25 09:15 Hx Tobacco Use No 08/24/25 09:15 Years Smoking Packs Smoked per Day Smoking Cessation Date was within the last 15 years Hx Smoking Cessation Date Hx Smoking Cessation No 08/24/25 09:15 Counseling Hematologic Medial History Hematologic Hx - ambulance attendant: Hematologic Medical Hx - business performance analyst Hx of Blood Transfusion Yes 08/24/25 09:15 Hx of Transfusion in last 3 No 08/24/25 09:15 Months Date of Last Transfusion (if within last 3 months) Ever experience any problems No 08/24/25 09:15 with transfusion(s)? Specify any problems Hx of Preganancy in last 3 No 08/24/25 09:15 Months Nurse Filling Out Transfusion JZOLLINGE 08/24/25 09:15 & Questions: Date: 08/24/25 08/24/25 09:15 Time: 09:16 08/24/25 09:15 Patient unable to answer at this time (ie. confused, unrespo /Reproduction History /Reproductive History - ambulance attendant: /Reproductive Hx- ambulance attendant Hx Now No 08/24/25 09:15 Gestational Age (in weeks): EDC: Hx Hx Para Hx Section SAB No 08/24/25 09:15 Does the father of the baby or his family experience fever w Father of the baby Malignant Hypertension history comment [facility] Medical History Right leg weakness Acute hypokalemia Anemia Vitamin D deficiency Benzodiazepine dependence Hyperlipidemia Hypomagnesemia Hypokalemia Wears glasses Depression Restless legs Difficulty swallowing Gastric reflux Non-smoker Shortness of breath on exertion Anxiety Acid reflux Constipation Iron deficiency anemia Abdominal pain Home Medications Medication Instructions Recorded Last Taken Type famotidine 40 mg tablet 40 mg PO DAILY PRN GERD 12/26/22 Unknown History potassium chloride 20 mEq 60 meq (3 x 20 mEq) PO DAILY 30 04/26/25 Unknown Rx tablet,extended release (K-Tab) days #90 tabs citalopram 20 mg tablet 20 mg PO DAILY #90 tabs 04/27/25 Unknown Rx Allergy/AdvReac Type Severity Reaction Status Date / Time No Known Allergies Allergy Verified 08/24/25 09:12 Family History Mother Diabetes Father Heart disease Surgical History Hx of colonoscopy Hx of esophagogastroduodenoscopy S/P hemorrhoidectomy History of lithotripsy S/P laparoscopic cholecystectomy Social History current occupational status: employed current occupation: [employer] Smoking Status: Never smoker alcohol intake: never substance use type: does not use do you feel safe at home: Yes Audit: Pertinent Findings Pertinent Findings EKG Perinent findings: Sinus rhythm with 1st degree A-V block Marked ST abnormality, possible inferior subendocardial injury Abnormal ECG No previous ECGs available Confirmed by ROLF JOLLY MD ([id number]), writer editor PEDRO YANG ([id number]) on 04/27/2025 2:02:30 PM Echo (EF%) pertinent findings: 03/2025: Normal LV size. Left ventricular systolic function is normal. The left ventricular ejection fraction is 60 %. Bubble contrast study is negative for PFO/ASD. Recommendation Anesthesia Recommendation Anesthesia recommendation: OPTIMIZED for anesthesia
[2025-09-01] VITALS (9 sets, daily range): BP systolic 86–118; BP diastolic 59–87; PULSE 57–66; RESP 16; TEMP 36.3–36.7; O2SAT 97–100; BMI 18.6
[2025-09-01 13:04] LABS: Internal QC Validated? YES +Cl - CLEAR BKGD; Pregnancy, Urine Negative Negative; Record Kit Lot#,Urine Preg 980607
[2025-09-01] MEDS: Lactated Ringers 1,000 ML 15 ML IV (13:37)
--- NOTE | 2025-09-01 14:03 | PRE.ANES_ITS ---
ASA Classification* ASA Classification ASA Classification: 2 Assessment & Plan Anesthesia* Anesthesia Assessment Anesthesia Assessment: Discussed sedation and/or anesthesia options, risks, benefits, and alternatives with patient/parents/legal guardian/POA. Questions invited. The patient/parents/legal guardian/POA seems to understand and agrees to proceed with anesthesia plan. Reviewed the physical assessment, medical history, allergy history and patient home medications list prior to surgery/procedure/anesthetic and documented any changes. Performed airway and anesthesia risk assessments. Anesthesia Type Anesthesia Type: MAC History Source History Obtained from:: Patient and Chart Anesthesia Focused Assessment* Temperature: 97.8 F Pulse Rate: 64 Blood Pressure: 115/68 Respiratory Rate: 16 Pulse Ox: 100 Oxygen Delivery Method: Room Air Airway Assessment Mouth opens: >3 cm Mallampati Score: III Teeth Condition: Missing (Patient is missing some back molars.) and Upper (Patient has her upper permanent bridge.) Neck Range of motion (ROM): Limited ROM (Slight Decrease) Labs Anesthesia Preop lab: CBC WBC, (4.4-11.0) 5.1 K/mm3 07/01/25, 13:22 RBC, (4.2-5.4) 4.02 M/mm3 L 07/01/25, 13:22 Hgb, (12.0-15.0) 12.3 g/dL 07/01/25, 13:22 Hct, (37-47) 38.1 % 07/01/25, 13:22 Plt Count, (150-450) 359 K/mm3 07/01/25, 13:22 CHEMISTRY Potassium, (3.3-5.1) 4.5 mmol/L 07/01/25, 13:22 Sodium, (133-145) 139 mmol/L 07/01/25, 13:22 Magnesium, (1.5-2.2) 1.9 mg/dL 04/26/25, 05:33 BUN, (4-19) 15 mg/dL 07/01/25, 13:22 Creatinine, (0.70-1.20) 0.76 mg/dL 07/01/25, 13:22 Glucose, (70-99) 98 mg/dL 07/01/25, 13:22 POC Glucose, (74-106) 114 mg/dL H 04/23/25, 16:22 TSH, (0.300-4.200) 1.870 uIU/mL 07/01/25, 13:22 COAG PT, (11.7-14.9) 14.2 SECONDS 04/23/25, 16:07 Urine Test Negative Negative Today, 12:55 Pre-Assessment Diagnosis/Proposed Procedure Planned Operative Procedure(s): Hysteroscopy, Dilation and Curettage Anesthesia History Anesthesia History - field service engineer: Anesthesia History - field service engineer Hx Hospitalization Yes: low K 08/24/25 09:15 Any Problems With Anesthesia No 08/24/25 09:15 Cholinesterase deficiency No 08/24/25 09:15 You/Your Family Experience No 08/24/25 09:15 fever (hyperthermia) with Relationship Recent Exposure to Contagious No 09/01/25 13:08 Disease Does patient have nerve No 08/24/25 09:15 stimulator Patient instructed to have device shut off --Does patient have Pacemaker No 09/01/25 13:08 or ICD? When Was Last Pacemaker Check QUESTION #4 FULL TEXT: You/Your Family Experience fever (hyperthermia) with Anesthesia Last Oral Intake Last Oral intake: Last Oral Intake NPO since 08:00 09/01/25 13:08 Meds taken in AM with sips of Yes 09/01/25 13:08 water? Meds patient instructed to see medlist 09/01/25 13:08 take am of surgery Any additional information?: Yes NPO since: 08:00 (Patient had black coffee at 8 AM.) Meds taken in AM with sips of water?: Yes PONV PONV - field service engineer: PONV - field service engineer Female Yes 08/24/25 09:15 HX of Motion Sickness No 08/24/25 09:15 HX of N/V After Surgery No 08/24/25 09:15 Non-Smoker Yes 08/24/25 09:15 Duration of Surgery greater No 08/24/25 09:15 than 60 minutes Number of Risk Factors 2 08/24/25 09:15 PONV Score Moderate Risk 08/24/25 09:15 Height & Weight Height & Weight: Anesthesia: Height & Weight Height 4 ft 11 in 09/01/25 13:08 Weight: 42 kg 09/01/25 13:08 Body Mass Index (BMI) 18.6 09/01/25 13:08 Respiratory Assessment Respiratory Assessment - field service engineer: Respiratory Tract Infection Hx - field service engineer Hx Respiratory Tract Infection No 08/24/25 09:15 STOP Sleep Apnea STOP Sleep Apnea - field service engineer: STOP Sleep Apnea - field service engineer Hx Hypertension No 08/24/25 09:15 Hx Sleep Apnea No 08/24/25 09:15 CPAP BIPAP Do you snore loudly (louder No 08/24/25 09:15 than talking or can be heard Do you often feel tired/ No 08/24/25 09:15 fatigued/ sleepy during daytime? Has anyone observed you stop No 08/24/25 09:15 breathing during sleep? STOP Results Negative 08/24/25 09:15 QUESTION #5 FULL TEXT : Do you snore loudly (louder than talking or can be heard through closed doors)? Tobacco Use History Tobacco Use History - field service engineer: Tobacco Use History - field service engineer Tobacco Use Non-smoker 04/26/25 02:09 Smoking Status Never smoker 08/24/25 09:15 Hx Tobacco Use No 08/24/25 09:15 Years Smoking Packs Smoked per Day Smoking Cessation Date was within the last 15 years Hx Smoking Cessation Date Hx Smoking Cessation No 08/24/25 09:15 Counseling Hematologic Medial History Hematologic Hx - field service engineer: Hematologic Medical Hx - coding file clerk Hx of Blood Transfusion Yes 08/24/25 09:15 Hx of Transfusion in last 3 No 08/24/25 09:15 Months Date of Last Transfusion (if within last 3 months) Ever experience any problems No 08/24/25 09:15 with transfusion(s)? Specify any problems Hx of Preganancy in last 3 No 08/24/25 09:15 Months Nurse Filling Out Transfusion JZOLLINGE 08/24/25 09:15 & Questions: Date: 08/24/25 08/24/25 09:15 Time: 09:16 08/24/25 09:15 Patient unable to answer at this time (ie. confused, unrespo /Reproduction History /Reproductive History - field service engineer: /Reproductive Hx- field service engineer Hx Now No 08/24/25 09:15 Gestational Age (in weeks): EDC: Hx Hx Para Hx Section SAB No 08/24/25 09:15 Does the father of the baby or his family experience fever w Father of the baby Malignant Hypertension history comment Active Medications Active Medications: Current Medications Generic Name Dose Route Start Last Admin Trade Name Freq PRN Reason Stop Dose Admin Lactated Ringer's 1,000 mls @ 15 mls/hr 09/01/25 13:00 09/01/25 13:37 IV 15 mls/hr .Q48H [place] Administration PFSH Medical History Right leg weakness Acute hypokalemia Anemia Vitamin D deficiency Benzodiazepine dependence Hyperlipidemia Hypomagnesemia Hypokalemia Wears glasses Depression Restless legs Difficulty swallowing Gastric reflux Non-smoker Shortness of breath on exertion Anxiety Acid reflux Constipation Iron deficiency anemia Abdominal pain Home Medications Medication Instructions Recorded Last Taken Type famotidine 40 mg tablet 40 mg PO DAILY PRN GERD 11/30 05/23 Unknown History potassium chloride 20 mEq 60 meq (3 x 20 mEq) PO DAILY 30 04/26/25 09/01/25 Rx tablet,extended release (K-Tab) days #90 tabs citalopram 20 mg tablet 20 mg PO DAILY #90 tabs 04/0109/01/25 Rx Allergy/AdvReac Type Severity Reaction Status Date / Time No Known Allergies Allergy Verified 09/01/25 13:04 Family History Mother Diabetes Father Heart disease Surgical History Hx of colonoscopy Hx of esophagogastroduodenoscopy S/P hemorrhoidectomy History of lithotripsy S/P laparoscopic cholecystectomy Social History current occupational status: employed current occupation: [employer] Smoking Status: Never smoker alcohol intake: never substance use type: does not use do you feel safe at home: Yes Review of Systems (Anesthesia) ROS Narrative System reviewed and no additional complaints, except as documented.
--- NOTE | 2025-09-01 14:39 | HP.PCM_ITS ---
History and Physical Date of Admission: 09/01/25 Vital Signs 07/22/2508:42 08/17/2510:01 Height 4 ft 11 in 4 ft 11 in Weight: 92 lb 9 oz BMI 18.6 BP 118/74 Intake Visit Reasons: Hysteroscopy D&C Chief Complaint: Hysteroscopy D+C Preop Network Systems Engineer Required: No Is patient in pain?: No Allergies No Known Allergies Allergy (Verified 08/17/25 09:59) Medications Medication Instructions Recorded Confirmed Type famotidine 40 mg tablet 40 mg PO DAILY GERD 12/26/22 08/17/25 Hi story potassium chloride 20 mEq 60 meq (3 x 20 mEq) PO DAILY 30 04/26/25 08/17/25 Rx tablet,extended release (K-Tab) days #90 tabs citalopram 20 mg tablet 20 mg PO DAILY #90 tabs 04/27/25 5 Rx Is last menstrual period known: No Patient : No : No PFSH Medical History Right leg weakness Acute hypokalemia Anemia Vitamin D deficiency Benzodiazepine dependence Hyperlipidemia Hypomagnesemia Hypokalemia Wears glasses Depression Restless legs Difficulty swallowing Gastric reflux Non-smoker Shortness of breath on exertion Anxiety Acid reflux Constipation Iron deficiency anemia Abdominal pain Surgical History Hx of colonoscopy Hx of esophagogastroduodenoscopy S/P hemorrhoidectomy History of lithotripsy S/P laparoscopic cholecystectomy Family History Mother Diabetes Father Heart disease Social History current occupational status: employed current occupation: [employer] Smoking Status: Never smoker alcohol intake: never substance use type: does not use do you feel safe at home: Yes HPI Hysteroscopy D&C Details: The patient is a 54-year-old female with a history of postmenopausal bleeding presenting for evaluation and management. Postmenopausal Bleeding - Patient reports experiencing postmenopausal bleeding after one year without a period. - Bleeding has been intermittent, with episodes noted yesterday and this morning. - Denies any rectal bleeding. - Referred by Dr. Barfield to [facility], who attempted an endometrial biopsy but was unable to complete it due to a small cervix; a Pap smear was performed instead, which returned normal results. - Transvaginal ultrasound revealed a 4mm endometrial lining and small fibroids. 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 PMHx - Uterine fibroids PSHx - Cornea transplant (June) Social Hx - Sexual practices: Denies sexual activity History 0 Elective abortions Hx Para Spontaneous abortions Hx # Term Pregnancies Ectopic pregnancies Hx # Pregnancies Multiple births # of living children ROS Const ROS Unobtainable: All systems reviewed & are unremarkable except as noted in H Resp Resp: Reports system reviewed and no additional complaints, except as documented; Denies cough GI GI: Reports as per HPI Psych Psych: Reports system reviewed and no additional complaints, except as documented Exam Const General: cooperative, healthy appearing, comfortable and no acute distress Resp Effort & Inspection: normal respiratory effort Skin General: no rashes or lesions noted Psych Appearance: grossly normal Speech and Movement: speech and movement normal Coding Level of Care Code Off vis,est,level 4 Diagnoses Preoperative exam for gynecologic surgery Z01.818 Postmenopausal bleeding N95.0 Assessment and Plan Assessment and Plan (1) Preoperative exam for gynecologic surgery: Status: Acute (2) Postmenopausal bleeding: Status: Acute Orders: Orders CBC-Complete Blood Cnt No Diff Today Z01.818 - Encounter for other preprocedural examination Type & Screen - PAT ONLY Today Plan # Postmenopausal bleeding (N95.0) # Intramural leiomyoma of uterus (D25.1) - Recent onset of postmenopausal bleeding after 1 year of amenorrhea; endometrial thickness measured at 4 mm on ultrasound, which is at the threshold for further investigation. - Small intramural fibroids noted on ultrasound; not considered clinically signi ficant at this time. - Previous endometrial biopsy attempt was unsuccessful due to a stenotic cervix; Pap smear was normal. - Proceed with hysteroscopy, dilation, and curettage scheduled for September 01 to obtain endometrial samples and rule out malignancy. - Discussed risks of the procedure, including bleeding, infection, and potential for cervical stenosis preventing access; patient provided informed consent. - If unable to obtain endometrial sample due to cervical stenosis, will monitor endometrial thickness via ultrasound every 6 months. - Provided preoperative instructions, including use of body wash and NPO guidelines. - Order preoperative blood work (type and crossmatch) to be completed 1-14 days prior to surgery. - Educated patient on the rationale for endometrial sampling, the generally benign nature of small fibroids, and the importance of ruling out endometrial cancer. # Preoperative examination (Z01.818) After discussing the patient's diagnosis and treatment plan options, patient wishes to proceed with surgical management. I have discussed with the patient the risks, benefits, and alternatives of the procedure which include but are not limited to risks of anesthesia, bleeding, infection, possible damage to bowel, bladder, or surrounding vasculature which could lead to additional surgery to evaluate any complications. Patient agrees to procedure and wishes to proceed. ACOG/uptodate references given for additional information regarding procedure.
--- NOTE | 2025-09-01 14:52 | PCM.DC ---
Discharge Instructions DC O2, CPAP, BIPAP needs Home O2 Discharge instructions: No Dressing / Incision Discharge Activity: Return to Normal Activity, May Shower and May Take a Tub Bath (after 1 week) May resume sexual activity in: 1-2 weeks Weight Bearing Status: Weight bearing as tolerated Lifting Restrictions: none Dressing / Incision Call your doctor if you observe: Fever of 101 or Higher, Using more than 1 pad per hour, Shortness of breath and Uncontrolled pain Follow Up Care Please Follow Up With: Daysi De La Cruz DO When: Call [phone] to schedule appointment. Test Results: Test results from this visit will be discussed in further detail at your follow-up appointment, if applicable. Discharge Plan Admission Primary Reason for Your Visit: postmenopausal bleeding Attending Provider: Daysi De La Cruz Primary Care Provider: Garcia Barfield Chi Instructions Print Language: [place] Discharge Orders/Prescriptions Prescriptions: New ibuprofen 800 mg tablet 800 mg PO Q8H PRN (Reason: pain) Qty: 20 0RF Continued famotidine 40 mg tablet 40 mg PO DAILY PRN (Reason: GERD) potassium chloride [K-Tab] 20 mEq tablet extended release 60 meq PO DAILY 30 Days Qty: 90 1RF citalopram 20 mg tablet 20 mg PO DAILY Qty: 90 1RF Referrals / Follow Up: Garcia Barfield Chi, MD [Primary Care Provider, Geriatrics] Disposition Disposition (needs filled in before D/C Order can be placed): Home, Self Care
[2025-09-01] MEDS: Midazolam 2 MG/2 ML Syringe IV (15:02)
[2025-09-01] MEDS: Lidocaine 1% (5 ml sdv) 5 ML Vial 4 ML IV (15:07)
--- NOTE | 2025-09-01 15:38 | PCM.POST.ANE ---
Anesthesia: Postop Eval I Current Vital Signs Temperature: 98 F Pulse Rate: 60 Blood Pressure: 98/59 Respiratory Rate: 16 Pulse Ox: 98 Assessment Airway patent: Yes Spontaneous unlabored respirations: Yes nausea: No Vomiting: No Anesthesia Complication: No Fluid Hydration Crystalloid volume administer (ml): 500 Total IV fluid infused: 500 Progress Note Anesthesia document: Postop Eval 1 completed: Yes
--- NOTE | 2025-09-01 15:53 | PCM.OPRPT ---
Multi Select Codes Urinary/Genital Urinary/Genital CPT Codes: 97653 Hysteroscopy, diagnostic Operative Report (Standard) Operative Information Date of Procedure: 09/01/25 Pre-Operative Diagnosis: postmenopausal bleeding Post-Operative Diagnosis: postmenopausal bleeding, cervical stenosis Surgery/Procedure Performed: attempted hysteroscopy wine cellar stock clerk: Yes Corrosion Control Technician: Venessa Mcdowell Tasks completed by volunteer assistant: Other Type of Anesthesia: Local and MAC RN Documented Start/Stop Times: Operation Date: 09/01/25 14:30 Case Time Into Pre-Op 09/01/25 12:53 Anesthesia Start 09/01/25 15:02 Into Room 09/01/25 15:02 Procedure Start 09/01/25 15:17 Procedure End 09/01/25 15:26 Anesthesia End 09/01/25 15:33 Out of Room 09/01/25 15:33 Into Recovery 09/01/25 15:35 Procedure Start Time: 15:17 Procedure Stop Time: 15:33 Select all DRAINS/GRAFTS/IMPLANTS that apply: None Estimated Blood Loss: 0 Specimen collected: No Description of surgery: Reason for procedure: This is a 54 y/o who is 1 year postmenopausal. She presented to my office with the complaint of spotting. Office endometrial biopsy was not successful. Ultrasound showed a 1.7 cm pedunculated into the endometrium fibroid. The lining was noted to be 4mm. Prior to the procedure I explained to the patient that she may have cervical stenosis that makes it impossible to pass a camera into her uterus. She understood the risk and wished to proceed with an attempt at hysteroscopy. The patient was brought to the operating room and MAC anesthesia was administered. She was prepped and draped in the usual sterile fashion. A weighted speculum was placed in the vagina and the anterior lip of the cervix was grasped with a single-toothed tenaculum. The cervix was dilated to fit a 5 mm hysteroscope however the uterine cavity was unable to be entered due to severe stenosis. The camera was placed in the cervix after multiple attempts to dilate, and hydrodissection was also attempted. The opening to the uterus was noted to be pinpoint. After mulptiple attempts the procedure was abandoned. All instruments were removed from the vagina and she was brought to the recovery room in stable condition Surgical Findings: severe cervical stenosis. Complications Complications: No Admit VTE Documentation VTE Present on Admission: No VTE Mechan Device Prophylaxis: SCD's Reason prophylaxis not ordered: Treatment Not Indicated
--- NOTE | 2025-09-01 20:50 | POSTOPAN2_ITS ---
Anesthesia Postop Eval I Sum Postop Eval Completion status Anesthesia document: Postop Eval 1 completed: Yes Anesthesia Postop Eval I Summary Anesthesia Postop Eval I Summary: Anesthesia Postop Eval I: Assessment Summary Airway patent Yes 09/01/25 15:39 [email or web address] Spontaneous unlabored Yes 09/01/25 15:39 [email or web address] respirations Mental status nausea No 09/01/25 15:39 [email or web address] Vomiting No 09/01/25 15:39 [email or web address] Anesthesia Postop Eval I: Fluid Summary Crystalloid volume administer 500 09/01/25 15:39 [email or web address] (ml) Colloids volume administered ( ml) Blood Product volume administered (ml) Total IV fluid infused 500 09/01/25 15:39 [email or web address] Anesthesia Postop Eval I: Summary Notes Anesthesia Complication No 09/01/25 15:39 [email or web address] Anesthesia Complication Comment: Post-operative progress note Anesthesia: Postop Eval II Evaluation Mental status: Awake and Calm Pain Level: 1 nausea: No Vomiting: No Complications Anesthesia Complication: No
--- NOTE | 2025-09-01 20:50 | PCM.POSTANE2 ---
Anesthesia Postop Eval I Sum Postop Eval Completion status Anesthesia document: Postop Eval 1 completed: Yes Anesthesia Postop Eval I Summary Anesthesia Postop Eval I Summary: Anesthesia Postop Eval I: Assessment Summary Airway patent Yes 09/01/25 15:39 [email or web address] Spontaneous unlabored Yes 09/01/25 15:39 [email or web address] respirations Mental status nausea No 09/01/25 15:39 [email or web address] Vomiting No 09/01/25 15:39 [email or web address] Anesthesia Postop Eval I: Fluid Summary Crystalloid volume administer 500 09/01/25 15:39 [email or web address] (ml) Colloids volume administered ( ml) Blood Product volume administered (ml) Total IV fluid infused 500 09/01/25 15:39 [email or web address] Anesthesia Postop Eval I: Summary Notes Anesthesia Complication No 09/01/25 15:39 [email or web address] Anesthesia Complication Comment: Post-operative progress note Anesthesia: Postop Eval II Evaluation Mental status: Awake and Calm Pain Level: 1 nausea: No Vomiting: No Complications Anesthesia Complication: No
== END 2025-09-01 17:00 | disposition home or self-care (01) ==
LOC: SDC 12:37 → AC 12:38
PROVIDERS: PCP Family Medicine Geriatric Medicine; Referring Provider Obstetrics & Gynecology; Visit Provider Obstetrics & Gynecology
PROC: 0UDB8ZZ Extraction of Endometrium, Via Natural or Artificial Opening Endoscopic (ICD-10-PCS; CPT 58558; principal; 2025-09-01 14:20)
DX: N88.2 Stricture and stenosis of cervix uteri (principal); N95.0 Postmenopausal bleeding; Z78.0 Asymptomatic menopausal state; E78.5 Hyperlipidemia, unspecified; K21.9 Gastro-esophageal reflux disease without esophagitis; D25.1 Intramural leiomyoma of uterus; Z53.09 Procedure and treatment not carried out because of other contraindication; Z79.899 Other long term (current) drug therapy
CPT/HCPCS: 58555; 00952; 81025; 86850; 86900; 86901; J2405